=== PATIENT | male | born 1945 | race Caucasian/White ===

== ENCOUNTER → 2016-11-15 | Outpatient (CLI) | payer MEDICARE, BC ==
--- NOTE | 2016-11-15 09:10 | CTL ---
EXAMINATION TYPE: CT chest Low Dose lung cancer screening DATE OF EXAM ORDERED: 11/15/2016 HISTORY: 70 year-old male history of tobacco use. Lung cancer screening, 6 month follow-up. CT DLP: 122.[address] CTDI: 3.50 mGy Automated exposure control for dose reduction was used. SCREENING VISIT: Six-month follow-up (the patient is 5 months late) COMPARISON: 12/19/2015 TECHNIQUE: Low dose computed tomography scan was performed through the chest at 1 mm thick sections a nd reconstructed images in the coronal and sagittal plane at [address] DIAGNOSTIC QUALITY: Satisfactory FINDINGS: The heart size without pericardial effusion. Minimal coronary vessel calcifications are present. Currently, the ascending aorta measures ectatic at 3.9 cm and the upper descending thoracic aorta judy sures mildly aneurysmal at 3.3 cm. Mild atherosclerotic arch calcifications with conventional arch ve ssel branching anatomy. Redemonstrated few scattered nonenlarged mediastinal lymph nodes. Mild biapical pleural-parenchymal scarring. No consolidation or pleural effusion. There is mild emphy sematous change. Mild diffuse bronchial wall thickening suggests chronic bronchitis. - A couple stable 4 mm right midlung pulmonary nodules, axial image 129 and 131. - 5 mm right mid to lower lung pulmonary nodule axial image 148 is stable. -However, an adjacent 4 mm pulmonary nodule axial image 149 is new. - A 3 mm pulmonary nodule left mid lung axial image 133 is new. - In retrospect, a 5 mm subpleural pulmonary nodule posterior left base, axial image 244 is stable. Visualized upper abdomen shows a tiny hiatal hernia. Bones: Mild multilevel degenerative disc disease mid to lower thoracic spine. No osseous destructive process IMPRESSION: 1. Lung-RADS 3 - probably benign; while the previously seen 5 mm and 4 mm right lung pulmonary nodule s are stable, there is a new 4 mm pulmonary nodule on the right which warrants a six-month follow-up. RECOMMENDATION: 1. Six month follow-up low dose CT chest to reassess the new 4 mm right-sided pulmonary nodule. 2. Smoking cessation.
== END | disposition home or self-care (01) ==
LOC: RADCTMAIN 08:25
PROVIDERS: ATTEND Family Medicine
DX: Z12.2 Encounter for screening for malignant neoplasm of respiratory organs (principal); R91.8 Other nonspecific abnormal finding of lung field; Z87.891 Personal history of nicotine dependence

== ENCOUNTER → 2017-05-09 | Outpatient (CLI) | payer MEDICARE, BC ==
--- NOTE | 2017-05-09 14:44 | CT ---
EXAMINATION TYPE: CT brain wo con DATE OF EXAM: 05/09/2017 HISTORY: Syncope x3 days ago. TIA. CT DLP: 1056.4 mGycm. Automated Exposure Control for Dose Reduction was Utilized. TECHNIQUE: CT scan of the head is performed without contrast. COMPARISON: None. FINDINGS: There is no acute intracranial hemorrhage or midline shift identified. There is diffuse v entricular and sulcal prominence consistent with diffuse age-related cerebral atrophy. There is low- attenuation in the periventricular white matter consistent with chronic small vessel ischemic change. The visualized sinuses are clear. There is drusen noted posteriorly in left globe. Left lens is not well seen suggesting possible cataract. Soft tissue density bilateral external auditory canals is fe lt to reflect cerumen. IMPRESSION: No acute intracranial hemorrhage or midline shift. There is mild to moderate diffuse ag e-related cerebral atrophy and chronic small vessel ischemic change noted. Left orbital findings not ed.
--- NOTE | 2017-05-09 14:57 | US ---
EXAMINATION TYPE: US carotid duplex BILAT DATE OF EXAM: 05/09/2017 COMPARISON: NONE CLINICAL HISTORY: R55 syncope. EXAM MEASUREMENTS: RIGHT: Peak Systolic Velocity (PSV) cm/sec ----- Right CCA: 69.0 ----- Right ICA: 56.0 ----- Right ECA: 80.0 ICA/CCA ratio: 0.8 RIGHT: End Diastole cm/sec ----- Right CCA: 15.9 ----- Right ICA: 19.0 ----- Right ECA: 15.0 LEFT: Peak Systolic Velocity (PSV) cm/sec ----- Left CCA: 50.3 ----- Left ICA: 62.1 ----- Left ECA: 91.5 ICA/CCA ratio: 1.2 LEFT: End Diastole cm/sec ----- Left CCA: 15.4 ----- Left ICA: 26.1 ----- Left ECA: 17.1 VERTEBRALS (direction of flow): Right Vertebral: Antegrade Left Vertebral: Antegrade Rhythm: Normal Grayscale images show mild plaque left carotid bulb. Velocity measurements and ratios remain within n ormal limits in visualized portion of both internal carotid arteries. IMPRESSION: No hemodynamically significant stenosis is seen in either internal carotid artery.
--- NOTE | 2017-05-10 09:32 | ECHOF ---
Referral Reason:G45.9 TIA MEASUREMENTS -------- HEIGHT: 177.8 cm WEIGHT: 102.1 kg BP: IVSd: 1.4 cm (0.6 - 1.1) LVIDd: 4.4 cm (3.9 - 5.3) LVPWd: 1.4 cm (0.6 - 1.1) IVSs: 1.7 cm LVIDs: 2.4 cm LVPWs: 1.7 cm LAESV Index (A-L): 11.05 ml/m Ao Diam: 3.6 cm (2.0 - 3.7) AV Cusp: 2.2 cm (1.5 - 2.6) LA Diam: 2.4 cm (2.7 - 3.8) EPSS: 2.5 cm MV E Pardeep: 0.85 m/s MV DecT: 193 ms MV A Pardeep: 1.00 m/s MV E/A Ratio: 0.85 AR PHT: 904 ms RAP: 5.00 mmHg RVSP: 12.45 mmHg MV EF SLOPE: 56.46 mm/s (70 - 150) MV EXCURSION: 1.44 cm (> 18.000) FINDINGS -------- Sinus rhythm. This was a technically adequate study. The left ventricular size is normal. Left ventricular wall thickness is normal. Overall left vent ricular systolic function is normal with, an EF between 55 - 60 %. The right ventricle is normal in size and function. Normal LA size by volume 22+/-6 ml/m2. The right atrium is normal in size. Aortic valve is trileaflet and is mildly thickened. There is mild aortic regurgitation. The aorti c pressure half-time by doppler is 904ms. Mild mitral annular calcification present. Mild mitral regurgitation is present. Mild tricuspid regurgitation present. Right ventricular systolic pressure is normal at < 35 mmHg. There is no evidence of pulmonary hypertension. The pulmonic valve was not well visualized. There is no pulmonic regurgitation present. The aortic root size is normal. Normal inferior vena cava with normal inspiratory collapse consistent with estimated right atrial pre ssure of 5 mmHg. There is no pericardial effusion. CONCLUSIONS -------- 1. Sinus rhythm. 2. This was a technically adequate study. 3. Left ventricular wall thickness is normal. 4. Overall left ventricular systolic function is normal with, an EF between 55 - 60 %. 5. Normal LA size by volume 22+/-6 ml/m2. 6. Aortic valve is trileaflet and is mildly thickened. 7. There is mild aortic regurgitation. 8. The aortic pressure half-time by doppler is 904ms. 9. Mild mitral annular calcification present. 10. Mild mitral regurgitation is present. 11. Mild tricuspid regurgitation present. 12. Right ventricular systolic pressure is normal at < 35 mmHg. 13. The pulmonic valve was not well visualized. 14. There is no pulmonic regurgitation present. 15. The aortic root size is normal. 16. There is no pericardial effusion. PSYCH SPECIALIST: Jamel Díaz RDCS
== END | disposition home or self-care (01) ==
LOC: RADCTMAIN 14:02
PROVIDERS: ATTEND Family Medicine
DX: G31.1 Senile degeneration of brain, not elsewhere classified (principal); I67.82 Cerebral ischemia
CPT/HCPCS: 70450; 93306; 93880

== ENCOUNTER 2017-12-05 06:54 | Day surgery (SDC) | payer MEDICARE, BC ==
[2017-12-02 10:46] VITALS: BMI 31.5
[~2017-12-05 06:54] MED LIST: LACTATED RINGERS 1,000 ML IV SCH; LIDOCAINE 1% 20 ML VIAL (10MG/ML) FOR IV START INTRADERMA PRN; MIDAZOLAM 2 MG/2 ML VIAL IV PRN
[2017-12-05 07:09] VITALS: TEMP 97.6
[2017-12-05] MEDS ORDERED: LACTATED RINGERS 1,000 ML IV ONE ×2 (07:12)
[2017-12-05 07:21] LABS: Glucose,Whole Blood 130 mg/dL (75-99)
[2017-12-05] MEDS ORDERED: GLUCAGON 1 MG/ML VIAL ONE (07:47)
[2017-12-05] MEDS ORDERED: PROPOFOL 10 MG/ML 20 ML VIAL IV ONE (07:47)
[2017-12-05] MEDS ORDERED: LIDOCAINE 1% INJ 10MG/ML (20 ML MDV) ONE (07:47)
--- NOTE | 2017-12-05 08:11 | P.GSHP ---
History of Present Illness H&P Date: 12/05/17 Chief Complaint: GI bleed, diarrhea 's is a 71-year-old male referred from Dr. Alfaro. Patient is today for colonoscopy. He's had issues with diarrhea and rectal bleeding. He's never had a colonoscopy before. Past Medical History Past Medical History: Cancer, Diabetes Mellitus, Hyperlipidemia, Hypertension, Osteoarthritis (OA), Thyroid Disorder Additional Past Medical History / Comment(s): hx. skin cancer, positive cologuard per pt. History of Any Multi-Drug Resistant Organisms: None Reported Additional Past Surgical History / Comment(s): THROAT BIOPSY, skin cancer removed, cataract removed left eye Past Anesthesia/Blood Transfusion Reactions: No Reported Reaction Smoking Status: Current every day smoker - Past Family History Father Family Medical History: No Reported History Medications and Allergies Home Medications Medication Instructions Recorded Confirmed Type Levothyroxine Sodium [Synthroid] 150 mcg PO DAILY 07/31/14 12/02/17 History Metoprolol Tartrate [Lopressor] 25 mg PO BID #10 tablet 07/31/14 12/02/17 Rx Cholecalciferol [Vitamin D3] 2,000 unit PO DAILY 08/04/15 12/02/17 History metFORMIN HCL [Glucophage] 1,000 mg PO BID 12/02/17 12/02/17 History Allergies Allergy/AdvReac Type Severity Reaction Status Date / Time No Known Allergies Allergy Verified 12/02/17 10:43 Surgical - Exam Vital Signs Temp Pulse Resp BP Pulse Ox 97.6 F 72 20 158/81 95 12/05/17 07:07 12/05/17 07:07 12/05/17 07:07 12/05/17 07:07 12/05/17 07:07 - General well developed, no distress - Eyes PERRL - ENT normal pinna - Neck no masses - Respiratory normal expansion - Cardiovascular Rhythm: regular - Abdomen Abdomen: soft, non tender Results - Labs Abnormal Lab Results - Last 24 Hours (Table) 12/05/17 Range/Units 07:12 POC Glucose (mg/dL) 130 H (75-99) mg/dL Assessment and Plan Assessment: GI bleed, diarrhea. We'll perform colonoscopy.
--- NOTE | 2017-12-05 08:28 | P.OP ---
Date of Procedure: 12/05/17 Preoperative Diagnosis: GI bleed, diarrhea Postoperative Diagnosis: Colitis Procedure(s) Performed: Colonoscopy Anesthesia: MAC Surgeon: Noe Jean Baptiste Pathology: other (Rectum) Condition: stable Disposition: PACU Description of Procedure: The patient's placed on the endoscopy table in the lateral position. He received IV sedation. Digital rectal exam was performed which revealed no ebonized. The flexible colonoscope was then placed patient anus passed throughout the entire colon. The ileocecal valve sutures. The cecum, ascending and transverse colon appeared normal. The descending colon was normal. In the sigmoid colon is evidence of colonic inflammation. The inflammation extended to the rectum. A 5 cigarette was performed. The scope was withdrawn from patient.
[2017-12-05 08:37] VITALS: RESP 16
[2017-12-05 08:38] LABS: Glucose,Whole Blood 161 mg/dL (75-99)
[2017-12-05 08:52] VITALS: BP 147/91; PULSE 75
== END 2017-12-05 09:16 | disposition home or self-care (01) ==
LOC: ORWHC2ENDO 06:54
PROVIDERS: ATTEND Surgery
DX: K52.9 Noninfective gastroenteritis and colitis, unspecified (principal); R19.5 Other fecal abnormalities; E11.9 Type 2 diabetes mellitus without complications; E78.5 Hyperlipidemia, unspecified; I10 Essential (primary) hypertension; M19.90 Unspecified osteoarthritis, unspecified site; E07.9 Disorder of thyroid, unspecified; F41.9 Anxiety disorder, unspecified; K21.9 Gastro-esophageal reflux disease without esophagitis; F17.210 Nicotine dependence, cigarettes, uncomplicated; Z79.84 Long term (current) use of oral hypoglycemic drugs; Z79.890 Hormone replacement therapy; Z79.899 Other long term (current) drug therapy; Z85.828 Personal history of other malignant neoplasm of skin
CPT/HCPCS: 88305; 45380; J1610; J2001; J2704

== ENCOUNTER → 2018-01-28 | Outpatient (CLI) | payer MEDICARE, BC ==
--- NOTE | 2018-01-28 13:59 | XR ---
EXAMINATION TYPE: XR thoracic spine complete DATE OF EXAM: 01/28/2018 COMPARISON: None HISTORY: Neck pain fall 3 days prior TECHNIQUE: Three-view thoracic spine FINDINGS: There are 12 thoracic type vertebral bodies. Pedicles are intact. There is a scoliosis cent ered at T6 with a convexity to the left. No suspicious compression deformities are evident. Disc heig hts are preserved. Vertebral body heights are preserved. Alignment is normal in the sagittal plane. IMPRESSION: 1. Scoliosis with the convexity to the left. 2. No acute posttraumatic changes
== END | disposition home or self-care (01) ==
LOC: RADXRMAIN 12:57
PROVIDERS: ATTEND Family Medicine
DX: M41.84 Other forms of scoliosis, thoracic region (principal)
CPT/HCPCS: 72072

== ENCOUNTER → 2018-09-21 | Outpatient (CLI) | payer MEDICARE, BC ==
--- NOTE | 2018-09-21 12:49 | US ---
EXAMINATION TYPE: US duplex aorta DATE OF EXAM: 09/21/2018 COMPARISON: NONE CLINICAL HISTORY: 72-year-old male Z13.6 CARDIOVASCULAR SCREENING. Smoker TECHNIQUE: Multiple sonographic images of the abdominal aorta are obtained. Findings: EXAM MEASUREMENTS: Abdominal Aorta: Proximal: not seen due to bowel gas Mid: 2.2 x 2.1cm Distal: 1.9 x 1.4cm Bifurcation: 1.3cm 1.3cm IMPRESSION: Unable to adequately visualize the proximal abdominal aorta due to bowel gas. The mid and distal abdo genie aorta show no evidence for AAA.
== END | disposition home or self-care (01) ==
LOC: RADUSWWP 09:28
PROVIDERS: ATTEND Family Medicine
DX: Z13.6 Encounter for screening for cardiovascular disorders (principal)
CPT/HCPCS: 93979

== ENCOUNTER → 2019-04-28 | Outpatient (CLI) | payer MEDICARE, BC ==
--- NOTE | 2019-04-28 15:00 | XR ---
EXAMINATION TYPE: XR Hip Complete LT DATE OF EXAM: 04/28/2019 CLINICAL HISTORY: Left hip pain. TECHNIQUE: AP and frogleg views of the left hip are obtained. COMPARISON: None. FINDINGS: There is no acute fracture/dislocation evident in the left hip. Mild to moderate axial darrel nt space loss left hip with mild acetabular spurring. Left pelvic phlebolith noted. IMPRESSION: As above.
== END | disposition home or self-care (01) ==
LOC: RADXRMAIN 14:31
PROVIDERS: ATTEND Family Medicine
DX: M25.852 Other specified joint disorders, left hip (principal); M76.892 Other specified enthesopathies of left lower limb, excluding foot; I87.8 Other specified disorders of veins
CPT/HCPCS: 73502

== ENCOUNTER 2020-07-03 21:09 | Inpatient (IN) | payer MEDICARE, BC ==
[2020-07-03] MEDS ORDERED: SODIUM CHLORIDE 0.9% 500 ML 500 ML IV STA (22:02)
[2020-07-03 22:21] LABS: Basophils # (A) 0.1 k/uL (0-0.2); Basophils % (A) 1 %; Eosinophils # (A) 0.5 k/uL (0-0.7); Eosinophils % (A) 6 %; HCT 45.9 % (39.0-53.0); HGB 15.3 gm/dL (13.0-17.5); Lymphocytes # (A) 2.2 k/uL (1.0-4.8); Lymphocytes % (A) 24 %; MCH 30.8 pg (25.0-35.0); MCHC 33.4 g/dL (31.0-37.0); MCV 92.2 fL (80.0-100.0); Mean Platelet Volume 8.4; Monocytes # (A) 0.5 k/uL (0-1.0); Monocytes % (A) 6 %; Neutrophils # (A) 5.5 k/uL (1.3-7.7); Neutrophils % (A) 62 %; Platelet Count 156 k/uL (150-450); RBC 4.99 m/uL (4.30-5.90)
[2020-07-03 22:32] LABS: ALT 25 U/L (4-49); AST 24 U/L (17-59); African American GFR (CKD) >90 (>60 ml/min/1.73 sqM); Albumin 4.1 g/dL (3.5-5.0); Alkaline Phosphatase 46 U/L (38-126); Anion Gap 13 mmol/L; Blood Urea Nitrogen 13 mg/dL (9-20); Calcium 10.1 mg/dL (8.4-10.2); Carbon Dioxide 22 mmol/L (22-30); Chloride 99 mmol/L (98-107); Glucose 229 mg/dL (74-99); Magnesium 1.5 mg/dL (1.6-2.3); Non-African American GFR(CKD) >90 (>60 ml/min/1.73 sqM); Sodium 134 mmol/L (137-145); Total Bilirubin 0.7 mg/dL (0.2-1.3); Total Protein 7.1 g/dL (6.3-8.2)
--- NOTE | 2020-07-03 22:46 | XR ---
EXAMINATION TYPE: XR chest 1V portable DATE OF EXAM: 07/03/2020 COMPARISON: 07/31/2014 HISTORY: Weakness TECHNIQUE: Single view FINDINGS: There is coarse interstitial type infiltrate in the right mid and lower lung field. There i s similar mild infiltrate at the left lung base. Heart size is normal. There is no heart failure. The re are no hilar masses. There is mild blunting right costophrenic angle. IMPRESSION: There are new bilateral pulmonary infiltrates compared to old exam. This could be acute p neumonia. No obvious heart failure. Small right pleural effusion.
[2020-07-03 22:49] LABS: Potassium 4.7 mmol/L (3.5-5.1)
[2020-07-03 22:57] LABS: Prothrombin Time 10.7 sec (9.0-12.0)
[2020-07-03] MEDS ORDERED: MAGNESIUM SULFATE-D5W PMX 1 GM in DEXTROSE/WATER 1 100ML.BAG IVPB ONE (23:10)
--- NOTE | 2020-07-03 23:14 | CT ---
EXAMINATION TYPE: CT brain wo con DATE OF EXAM: 07/03/2020 COMPARISON: None HISTORY: weakness, dizziness CT DLP: 1098.4 mGycm Automated exposure control for dose reduction was used. Exam performed without contrast. There is cerebral cortical atrophy and enlargement of the sylvian fissures. There is some enlargement of the ventricles. There is no mass effect nor midline shift. There is no sign of intracranial hemor rhage. The calvarium is intact. IMPRESSION: Cerebral atrophy. No acute intracranial abnormality. No significant change compared to old exam.
[2020-07-04] MEDS ORDERED: NALOXONE 0.4 MG/ML 1 ML VIAL IV PRN (00:07)
--- NOTE | 2020-07-04 00:12 | ED ---
General Adult HPI - General Chief complaint: Weakness Stated complaint: Weakness,Syncopy Time Seen by Provider: 07/03/20 21:39 Source: patient, family Mode of arrival: wheelchair Limitations: no limitations - History of Present Illness Initial comments: 74-year-old male patient presents to the emergency department today for evaluation of generalized weakness and not feeling well. Patient was diagnosed with COVID-19 few weeks ago and was discharged home from the hospital. Patient has been unable to get his strength back since being discharge. Patient is unable to care for himself. States he is very weak when attempting to ambulate. They did speak to his primary care physician prior to coming in and they discussed admission for possible placement to an extended care rehab facility. Patient denies any new fever, chills, cough, or congestion. Denies any headache, blurred vision, double vision. He did have a fall with head injury at couple days ago was never evaluated. Denies any extremity injuries. Denies any neck or back pain. Denies use of anticoagulant or antiplatelet medications. Patient denies any recent rash, chest pain, abdominal pain, nausea, vomiting, diarrhea, constipation, hematuria, dysuria, urinary urgency, urinary frequency, or any other complaints. - Related Data Home Medications Medication Instructions Recorded Confirmed Levothyroxine Sodium [Synthroid] 150 mcg PO DAILY 07/31/14 12/02/17 Cholecalciferol [Vitamin D3] 2,000 unit PO DAILY 08/04/15 12/02/17 metFORMIN HCL [Glucophage] 1,000 mg PO BID 12/02/17 12/02/17 Previous Rx's Medication Instructions Recorded Metoprolol Tartrate [Lopressor] 25 mg PO BID #10 tablet 07/31/14 predniSONE 50 mg PO DAILY #30 tablet 12/05/17 Allergies Allergy/AdvReac Type Severity Reaction Status Date / Time No Known Allergies Allergy Verified 07/03/20 21:18 Review of Systems ROS Statement: Those systems with pertinent positive or pertinent negative responses have been documented in the HPI. ROS Other: All systems not noted in ROS Statement are negative. Past Medical History Past Medical History: Cancer, Diabetes Mellitus, Hyperlipidemia, Hypertension, Osteoarthritis (OA), Thyroid Disorder Additional Past Medical History / Comment(s): hx. skin cancer, positive cologuard per pt. History of Any Multi-Drug Resistant Organisms: None Reported Additional Past Surgical History / Comment(s): THROAT BIOPSY, skin cancer removed, cataract removed left eye Past Anesthesia/Blood Transfusion Reactions: No Reported Reaction Past Psychological History: Anxiety Smoking Status: Former smoker Past Alcohol Use History: Rare Past Drug Use History: None Reported - Past Family History Father Family Medical History: No Reported History General Exam Limitations: no limitations General appearance: alert, in no apparent distress, other (This is a well- developed, well-nourished adult male patient in no acute distress. Vital signs upon presentation are temperature 97.9F, pulse 86, respirations 20, blood pressure 136/86, pulse ox 92% on room air.) Head exam: Present: other (Healing abrasion to the posterior scalp) Eye exam: Present: normal appearance, PERRL, EOMI. Absent: scleral icterus, conjunctival injection, periorbital swelling Neck exam: Present: normal inspection, full ROM, other (Nontender, no step-off, no deformity to firm midline palpation of the posterior cervical spine. Full range of motion without pain or limitation.). Absent: tenderness, meningismus, lymphadenopathy Respiratory exam: Present: normal lung sounds bilaterally. Absent: respiratory distress, wheezes, rales, rhonchi, stridor Cardiovascular Exam: Present: regular rate, normal rhythm, normal heart sounds. Absent: systolic murmur, diastolic murmur, rubs, gallop, clicks GI/Abdominal exam: Present: soft, normal bowel sounds. Absent: distended, tenderness, guarding, rebound, rigid Neurological exam: Present: alert, oriented X3, CN II-XII intact Psychiatric exam: Present: normal affect, normal mood Skin exam: Present: warm, dry, intact, normal color. Absent: rash Course Vital Signs 07/03/20 07/03/20 07/03/20 21:12 22:40 23:26 Temperature 97.9 F Pulse Rate 86 60 66 Respiratory 20 18 18 Rate Blood Pressure 136/86 147/78 148/85 O2 Sat by Pulse 92 L 92 L 96 Oximetry EKG Findings - EKG Comments: EKG Findings:: EKG obtained at 2133 shows normal sinus rhythm with a ventricular rate of 74, MD interval 176, QRS duration 74, QT 390, QTC 432. No evidence of ST elevation or depression. Medical Decision Making - Medical Decision Making 74-year-old male patient presented to the emergency department with daughter today for evaluation of increased weakness. Patient had COVID a couple of weeks ago and has not recovered fully. Is unable to ambulate or care for himself at home. Physical examination did reveal healing abrasion to the posterior scalp. To follow a few days ago as we did do a computed tomography scan was negative. Labs are unremarkable other than a low magnesium which were replacing and an elevated blood sugar. Chest x-ray did show bilateral infiltrates this is most likely residual from his Covid infection. Case was discussed with Dr. Alfaro who agrees to admission for placement to extended care rehab facility. Case is also discussed in my attending Dr. Villafana. - Lab Data Result diagrams: 07/03/20 22:17 07/03/20 22:17 Lab Results 07/03/20 07/03/20 07/03/20 Range/Units 22:17 22:17 22:17 WBC 9.0 (3.8-10.6) k/uL RBC 4.99 (4.30-5.90) m/uL Hgb 15.3 (13.0-17.5) gm/dL Hct 45.9 (39.0-53.0) % MCV 92.2 (80.0-100.0) fL MCH 30.8 (25.0-35.0) pg MCHC 33.4 (31.0-37.0) g/dL RDW 13.0 (11.5-15.5) % Plt Count 156 (150-450) k/uL MPV 8.4 Neutrophils % 62 % Lymphocytes % 24 % Monocytes % 6 % Eosinophils % 6 % Basophils % 1 % Neutrophils # 5.5 (1.3-7.7) k/uL Lymphocytes # 2.2 (1.0-4.8) k/uL Monocytes # 0.5 (0-1.0) k/uL Eosinophils # 0.5 (0-0.7) k/uL Basophils # 0.1 (0-0.2) k/uL PT 10.7 (9.0-12.0) sec INR 1.0 (<1.2) APTT 25.0 (22.0-30.0) sec Sodium 134 L (137-145) mmol/L Potassium 4.7 (3.5-5.1) mmol/L Chloride 99 (98-107) mmol/L Carbon Dioxide 22 (22-30) mmol/L Anion Gap 13 mmol/L BUN 13 (9-20) mg/dL Creatinine 0.71 (0.66-1.25) mg/dL Est GFR (CKD-EPI)AfAm >90 (>60 ml/min/1.73 sqM) Est GFR (CKD-EPI)NonAf >90 (>60 ml/min/1.73 sqM) Glucose 229 H (74-99) mg/dL Plasma Lactic Acid Addy (0.7-2.0) mmol/L Calcium 10.1 (8.4-10.2) mg/dL Magnesium 1.5 L (1.6-2.3) mg/dL Total Bilirubin 0.7 (0.2-1.3) mg/dL AST 24 (17-59) U/L ALT 25 (4-49) U/L Alkaline Phosphatase 46 (38-126) U/L Troponin I (0.000-0.034) ng/mL Total Protein 7.1 (6.3-8.2) g/dL Albumin 4.1 (3.5-5.0) g/dL Coronavirus (PCR) (Not Detectd) 07/03/20 07/03/20 07/03/20 Range/Units 22:17 22:45 23:14 WBC (3.8-10.6) k/uL RBC (4.30-5.90) m/uL Hgb (13.0-17.5) gm/dL Hct (39.0-53.0) % MCV (80.0-100.0) fL MCH (25.0-35.0) pg MCHC (31.0-37.0) g/dL RDW (11.5-15.5) % Plt Count (150-450) k/uL MPV Neutrophils % % Lymphocytes % % Monocytes % % Eosinophils % % Basophils % % Neutrophils # (1.3-7.7) k/uL Lymphocytes # (1.0-4.8) k/uL Monocytes # (0-1.0) k/uL Eosinophils # (0-0.7) k/uL Basophils # (0-0.2) k/uL PT (9.0-12.0) sec INR (<1.2) APTT (22.0-30.0) sec Sodium (137-145) mmol/L Potassium (3.5-5.1) mmol/L Chloride (98-107) mmol/L Carbon Dioxide (22-30) mmol/L Anion Gap mmol/L BUN (9-20) mg/dL Creatinine (0.66-1.25) mg/dL Est GFR (CKD-EPI)AfAm (>60 ml/min/1.73 sqM) Est GFR (CKD-EPI)NonAf (>60 ml/min/1.73 sqM) Glucose (74-99) mg/dL Plasma Lactic Acid Addy 1.9 (0.7-2.0) mmol/L Calcium (8.4-10.2) mg/dL Magnesium (1.6-2.3) mg/dL Total Bilirubin (0.2-1.3) mg/dL AST (17-59) U/L ALT (4-49) U/L Alkaline Phosphatase (38-126) U/L Troponin I <0.012 (0.000-0.034) ng/mL Total Protein (6.3-8.2) g/dL Albumin (3.5-5.0) g/dL Coronavirus (PCR) Not Detected (Not Detectd) - Radiology Data Radiology results: report reviewed, image reviewed CT brain without contrast was obtained. Report is reviewed in its entirety. Impression by Dr. More shows cerebral atrophy. No acute intracranial abnormality. No significant change compared to old exam One view x-ray of the chest is obtained. Report is reviewed in its entirety. Impression by Dr. More shows new bilateral pulmonary infiltrates compared to old exam which was 07/31/2014, this could be acute pneumonia. No obvious heart failure. Small right pleural effusion. Disposition Clinical Impression: Weakness Disposition: ADMITTED IP TO THIS HOSP Condition: Serious Time of Disposition: 00:14
[2020-07-04 00:59] LABS: Appearance,Urine Clear (Clear); Bilirubin,Urine Negative (Negative); Blood,Urine Negative (Negative); Color,Urine Light Yellow; Glucose,Urine (UA) Negative (Negative); Ketones,Urine Negative (Negative); Leukocyte Esterase,Urine Negative (Negative); Nitrite,Urine Negative (Negative); PH, Urine 6.5 (5.0-8.0); Protein,Urine Negative (Negative); Specific Gravity,Urine 1.007 (1.001-1.035); Urobilinogen,Urine <2.0 mg/dL (<2.0)
[2020-07-04 02:14] LABS: Glucose,Whole Blood 183 mg/dL (75-99)
[2020-07-04] MEDS ORDERED: ALBUTEROL HFA INHALER INHALATION PRN (07:56)
[2020-07-04] MEDS ORDERED: ALBUTEROL NEBULIZED 2.5 MG/3 ML INHALATION PRN (07:56)
[2020-07-04 11:52] LABS: Glucose,Whole Blood 229 mg/dL (75-99)
[2020-07-04] MEDS: METOPROLOL TARTRATE 25 MG TAB PO SCH ×2 (13:36→21:48)
[2020-07-04] MEDS: metFORMIN 500 MG TAB PO SCH ×2 (13:36→21:48)
[2020-07-04] MEDS: ASCORBIC ACID 500 MG TAB PO SCH (13:36)
[2020-07-04] MEDS: CHOLECALCIFEROL 25 MCG (1000 IU) TABLET PO SCH (13:36)
[2020-07-04] MEDS: INSULIN ASPART (NovoLOG) 100 UNIT/ML VIAL SQ SCH ×4 (13:38→21:48)
[2020-07-04] MEDS: PIOGLITAZONE 30 MG TAB PO SCH (13:39)
[2020-07-04] MEDS: FORMOTEROL FUMARATE 20 MCG/2 ML NEBU INHALATION SCH ×2 (15:11→19:37)
[2020-07-04] MEDS: IPRATROPIUM 0.5 MG/2.5 ML NEBU INHALATION SCH ×3 (15:11→19:38)
[2020-07-04 16:35] LABS: Glucose,Whole Blood 204 mg/dL (75-99)
[2020-07-04] MEDS: LEVOTHYROXINE 75 MCG TAB PO SCH (16:37)
[2020-07-04] MEDS: NICOTINE 21MG/24HR PATCH TRANSDERM SCH (16:37)
[2020-07-04 20:12] LABS: Glucose,Whole Blood 168 mg/dL (75-99)
[2020-07-04] MEDS: MONTELUKAST 10 MG TAB PO SCH (21:48)
[2020-07-05] MEDS: LEVOTHYROXINE 75 MCG TAB PO SCH (05:55)
[2020-07-05 06:55] LABS: Glucose,Whole Blood 169 mg/dL (75-99)
[2020-07-05] MEDS: IPRATROPIUM 0.5 MG/2.5 ML NEBU INHALATION SCH ×4 (07:10→21:33)
[2020-07-05] MEDS: FORMOTEROL FUMARATE 20 MCG/2 ML NEBU INHALATION SCH ×2 (07:10→21:33)
--- NOTE | 2020-07-05 08:14 | P.PN ---
Subjective Principal diagnosis: Debility The patient is essentially admitted for general debility and weakness. The patient has an underlying history of diabetes which is been uncontrolled. After discussing with the family, they wished to place ECF and rehab. Objective - Vital Signs Vital signs: Vital Signs Temp 98.4 F 07/05/20 02:00 Pulse 67 07/05/20 02:00 Resp 18 07/05/20 02:00 BP 122/73 07/05/20 02:00 Pulse Ox 93 L 07/05/20 02:00 Intake & Output 07/04/20 07/05/20 07/05/20 18:59 06:59 18:59 Intake Total 1250 Balance 1250 Weight 106.594 kg Intake: Oral 1250 Other: Voiding Method Toilet # Voids 4 3 - Constitutional General appearance: Present: no acute distress, obese. Absent: severe distress - Neck Neck: Absent: lymphadenopathy - Respiratory Respiratory: bilateral: CTA - Cardiovascular Rhythm: regular Heart sounds: normal: S1, S2 Abnormal Heart Sounds: Absent: S3 Gallop - Gastrointestinal General gastrointestinal: Present: soft. Absent: tenderness - Neurologic Neurologic: Present: CNII-XII intact - Labs CBC & Chem 7: 07/03/20 22:17 07/03/20 22:17 Labs: Abnormal Lab Results - Last 24 Hours (Table) 07/04/20 07/04/20 07/04/20 Range/Units 11:51 16:33 20:10 POC Glucose (mg/dL) 229 H 204 H 168 H (75-99) mg/dL 07/05/20 Range/Units 06:53 POC Glucose (mg/dL) 169 H (75-99) mg/dL Assessment and Plan (1) Uncontrolled diabetes mellitus Current Visit: Yes Status: Acute Code(s): E11.65 - TYPE 2 DIABETES MELLITUS WITH HYPERGLYCEMIA SNOMED Code(s): 08465600 (2) Weakness Current Visit: Yes Status: Acute Code(s): R53.1 - WEAKNESS SNOMED Code(s): 08005602 (3) Accelerated essential hypertension Current Visit: Yes Status: Acute Code(s): I10 - ESSENTIAL (PRIMARY) HYPERTENSION SNOMED Code(s): 80174657 Plan: Refer to discharge plan for probable ECF near [place]. PT/OT consultation. Prognosis is guarded. network services project manager consult
[2020-07-05] MEDS: metFORMIN 500 MG TAB PO SCH ×2 (08:18→19:58)
[2020-07-05] MEDS: ASCORBIC ACID 500 MG TAB PO SCH (08:19)
[2020-07-05] MEDS: CHOLECALCIFEROL 25 MCG (1000 IU) TABLET PO SCH (08:19)
[2020-07-05] MEDS: METOPROLOL TARTRATE 25 MG TAB PO SCH ×2 (08:19→19:58)
[2020-07-05] MEDS: PIOGLITAZONE 30 MG TAB PO SCH (08:19)
[2020-07-05] MEDS: INSULIN ASPART (NovoLOG) 100 UNIT/ML VIAL SQ SCH ×4 (08:19→20:06)
[2020-07-05] MEDS: NICOTINE 21MG/24HR PATCH TRANSDERM SCH (08:19)
[2020-07-05 09:13] LABS: HCT 44.4 % (39.6-50.0); HGB 14.2 g/dL (13.0-17.0); MCH 30.6 pg (27.0-32.0); MCV 95.7 fL (80.0-97.0); Mean Platelet Volume 11.6 fL (9.5-12.2); Platelet Count 164 X 10*3/uL (140-440); RBC 4.64 X 10*6/uL (4.40-5.60); RDW 13.2 % (11.5-14.5); WBC 7.72 X 10*3/uL (4.50-10.00)
[2020-07-05 09:39] LABS: African American GFR (CKD) 69.1 (60.0-200.0); Albumin/Globulin Ratio 2.11 (1.60-3.17); Anion Gap 10.6 mmol/L (4.00-12.00); Calcium 9.3 mg/dL (8.7-10.3); Carbon Dioxide 26.4 mmol/L (21.6-31.8); Globulin 1.9 g/dL (1.6-3.3); Non-African American GFR(CKD) 59.6 (60.0-200.0); Total Bilirubin 0.3 mg/dL (0.2-1.2); Total Protein 5.9 g/dL (6.2-8.2)
[2020-07-05 11:51] LABS: Glucose,Whole Blood 230 mg/dL (75-99)
[2020-07-05 17:14] LABS: Glucose,Whole Blood 132 mg/dL (75-99)
[2020-07-05] MEDS: MONTELUKAST 10 MG TAB PO SCH (19:58)
[2020-07-05 20:05] LABS: Glucose,Whole Blood 220 mg/dL (75-99)
[2020-07-06] MEDS: LEVOTHYROXINE 75 MCG TAB PO SCH (05:59)
[2020-07-06 06:56] LABS: Glucose,Whole Blood 193 mg/dL (75-99)
--- NOTE | 2020-07-06 08:09 | P.PN ---
Subjective Principal diagnosis: Debility The patient is essentially admitted for general debility and weakness. The patient has an underlying history of diabetes which is been uncontrolled. After discussing with the family, they wished to place ECF and rehab. We will increase rehab today. Objective - Vital Signs Vital signs: Vital Signs Temp 97.9 F 07/06/20 07:53 Pulse 67 07/06/20 07:53 Resp 14 07/06/20 07:53 BP 109/79 07/06/20 07:53 Pulse Ox 94 L 07/06/20 07:53 Intake & Output 07/05/20 07/06/20 07/06/20 18:59 06:59 18:59 Intake Total 590 Balance 590 Intake: Oral 590 Other: Voiding Method Toilet Toilet # Voids 1 # Bowel Movements 1 0 - Constitutional General appearance: Present: obese - EENT Eyes: Absent: abnormal pupil - Neck Neck: Absent: lymphadenopathy - Respiratory Respiratory: bilateral: CTA - Cardiovascular Rhythm: regular Heart sounds: normal: S1, S2 Abnormal Heart Sounds: Absent: S3 Gallop - Gastrointestinal General gastrointestinal: Present: soft. Absent: tenderness - Labs CBC & Chem 7: 07/05/20 04:20 07/05/20 04:20 Labs: Abnormal Lab Results - Last 24 Hours (Table) 07/05/20 07/05/20 07/05/20 Range/Units 04:20 11:44 17:11 Est GFR (CKD-EPI)NonAf 59.6 L (60.0-200.0) Glucose 172 H (70-110) mg/dL POC Glucose (mg/dL) 230 H 132 H (75-99) mg/dL Total Protein 5.9 L (6.2-8.2) g/dL 07/05/20 07/06/20 Range/Units 20:03 06:54 Est GFR (CKD-EPI)NonAf (60.0-200.0) Glucose (70-110) mg/dL POC Glucose (mg/dL) 220 H 193 H (75-99) mg/dL Total Protein (6.2-8.2) g/dL Assessment and Plan (1) Uncontrolled diabetes mellitus Current Visit: Yes Status: Acute Code(s): E11.65 - TYPE 2 DIABETES MELLITUS WITH HYPERGLYCEMIA SNOMED Code(s): 72534251 (2) Weakness Current Visit: Yes Status: Acute Code(s): R53.1 - WEAKNESS SNOMED Code(s): 17081264 (3) Accelerated essential hypertension Current Visit: Yes Status: Acute Code(s): I10 - ESSENTIAL (PRIMARY) HYPERTENSION SNOMED Code(s): 02403499 Plan: Refer to discharge plan for probable ECF n the aM PT/OT consultation. t continue sliding scale. Low-dose Levemir will be started today as well.
[2020-07-06] MEDS: INSULIN ASPART (NovoLOG) 100 UNIT/ML VIAL SQ SCH ×4 (08:19→21:05)
[2020-07-06] MEDS: PIOGLITAZONE 30 MG TAB PO SCH (08:19)
[2020-07-06] MEDS: NICOTINE 21MG/24HR PATCH TRANSDERM SCH (08:19)
[2020-07-06] MEDS: metFORMIN 500 MG TAB PO SCH ×2 (08:19→21:06)
[2020-07-06] MEDS: METOPROLOL TARTRATE 25 MG TAB PO SCH ×2 (08:20→21:06)
[2020-07-06] MEDS: CHOLECALCIFEROL 25 MCG (1000 IU) TABLET PO SCH (08:20)
[2020-07-06] MEDS: ASCORBIC ACID 500 MG TAB PO SCH (08:21)
[2020-07-06] MEDS: IPRATROPIUM 0.5 MG/2.5 ML NEBU INHALATION SCH ×4 (08:42→19:05)
[2020-07-06] MEDS: FORMOTEROL FUMARATE 20 MCG/2 ML NEBU INHALATION SCH ×2 (08:42→19:05)
[2020-07-06] MEDS: INSULIN DETEMIR (LEVEMIR) 100 UNIT/ML SYR SQ SCH (09:36)
[2020-07-06 09:57] LABS: HCT 42.9 % (39.6-50.0); HGB 14.2 g/dL (13.0-17.0); MCHC 33.1 g/dL (32.0-37.0); MCV 93.7 fL (80.0-97.0); Mean Platelet Volume 11.7 fL (9.5-12.2); Platelet Count 170 X 10*3/uL (140-440); RBC 4.58 X 10*6/uL (4.40-5.60); RDW 13.2 % (11.5-14.5); WBC 7.53 X 10*3/uL (4.50-10.00)
[2020-07-06 10:40] LABS: African American GFR (CKD) 86.2 (60.0-200.0); Albumin 3.6 g/dL (3.80-4.90); Albumin/Globulin Ratio 1.57 (1.60-3.17); Anion Gap 9.8 mmol/L (4.00-12.00); Calcium 9.8 mg/dL (8.7-10.3); Carbon Dioxide 23.2 mmol/L (21.6-31.8); Globulin 2.3 g/dL (1.6-3.3); Non-African American GFR(CKD) 74.3 (60.0-200.0); Potassium 3.8 mmol/L (3.5-5.5); Total Bilirubin 0.4 mg/dL (0.3-1.2); Total Protein 5.9 g/dL (6.2-8.2)
[2020-07-06 11:42] LABS: Glucose,Whole Blood 171 mg/dL (75-99)
[2020-07-06 16:38] LABS: Glucose,Whole Blood 128 mg/dL (75-99)
[2020-07-06 20:24] LABS: Glucose,Whole Blood 163 mg/dL (75-99)
[2020-07-06] MEDS: MONTELUKAST 10 MG TAB PO SCH (21:06)
[2020-07-06] MEDS ORDERED: ALPRAZolam 0.5 MG TAB PO PRN (22:30)
[2020-07-07 04:28] VITALS: RESP 16
[2020-07-07] MEDS: LEVOTHYROXINE 75 MCG TAB PO SCH (05:35)
[2020-07-07] MEDS ORDERED: INSULIN DETEMIR (LEVEMIR) 100 UNIT/ML SYR SQ SCH (07:00)
[2020-07-07 07:18] VITALS: BP 112/69; TEMP 97.8
[2020-07-07 07:24] LABS: Glucose,Whole Blood 146 mg/dL (75-99)
[2020-07-07] MEDS: CHOLECALCIFEROL 25 MCG (1000 IU) TABLET PO SCH (07:37)
[2020-07-07] MEDS: METOPROLOL TARTRATE 25 MG TAB PO SCH (07:37)
[2020-07-07] MEDS: metFORMIN 500 MG TAB PO SCH (07:37)
[2020-07-07] MEDS: PIOGLITAZONE 30 MG TAB PO SCH (07:37)
[2020-07-07] MEDS: ASCORBIC ACID 500 MG TAB PO SCH (07:39)
[2020-07-07] MEDS: INSULIN DETEMIR (LEVEMIR) 100 UNIT/ML SYR SQ SCH (07:39)
[2020-07-07] MEDS: INSULIN ASPART (NovoLOG) 100 UNIT/ML VIAL SQ SCH (07:40)
[2020-07-07] MEDS: NICOTINE 21MG/24HR PATCH TRANSDERM SCH (07:40)
--- NOTE | 2020-07-07 08:08 | P.DS ---
Providers Date of admission: 07/04/20 10:53 Attending physician: Marcos Alfaro Primary care physician: Marcos Alfaro - Discharge Diagnosis(es) (1) Uncontrolled diabetes mellitus Current Visit: Yes Status: Acute (2) Weakness Current Visit: Yes Status: Acute (3) Accelerated essential hypertension Current Visit: Yes Status: Acute Hospital Course: This is a discharge summary 74-year-old white male essentially admitted for generalized debility. He is lives alone and has had difficulty with ADLs and activity to keep his house. The patient was admitted for generalized weakness and uncontrolled diabetes. The patient was stabilized and will be transferred to rehab for appropriate ECF for the next 2-3 weeks. The patient is agreeable and will follow-up with me after discharge. Patient Condition at Discharge: Stable Plan - Discharge Summary New Discharge Prescriptions: New Ipratropium Nebulized [Atrovent Nebulized 0.2 MG/ML] 0.5 mg INHALATION RT-QID ml Nicotine 21Mg/24Hr Patch [Habitrol] 1 patch TRANSDERM DAILY patch Insulin Detemir (Levemir) [Levemir] 8 unit SQ DAILY@0700 syr INSULIN ASPART (NovoLOG) [NovoLOG (formulary)] 0 unit SQ ACHS vial Continue Metoprolol Tartrate [Lopressor] 25 mg PO BID #10 tablet Cholecalciferol [Vitamin D3 (25 Mcg = 1000 Iu)] 2,000 unit PO DAILY metFORMIN HCL [Glucophage] 500 mg PO BID Ascorbic Acid [Vitamin C] 500 mg PO DAILY Pioglitazone [Actos] 30 mg PO DAILY Montelukast [Singulair] 10 mg PO HS Levothyroxine Sodium [Synthroid] 150 mcg PO DAILY Albuterol Nebulized [Ventolin Nebulized] 2.5 mg INHALATION RT-QID PRN PRN Reason: Shortness Of Breath Albuterol Inhaler [Ventolin Hfa Inhaler] 2 puff INHALATION RT-Q4H PRN PRN Reason: Shortness Of Breath Tiotropium Br/Olodaterol HCl [Stiolto Respimat Inhal [place]] 1 spray INHALATION RT-DAILY Discharge Medication List Metoprolol Tartrate [Lopressor] 25 mg PO BID #10 tablet 07/31/14 [Rx] Cholecalciferol [Vitamin D3 (25 Mcg = 1000 Iu)] 2,000 unit PO DAILY 08/04/15 [History] metFORMIN HCL [Glucophage] 500 mg PO BID 12/02/17 [History] Albuterol Inhaler [Ventolin Hfa Inhaler] 2 puff INHALATION RT-Q4H PRN 07/04/20 [History] Albuterol Nebulized [Ventolin Nebulized] 2.5 mg INHALATION RT-QID PRN 07/04/20 [History] Ascorbic Acid [Vitamin C] 500 mg PO DAILY 07/04/20 [History] Levothyroxine Sodium [Synthroid] 150 mcg PO DAILY 07/04/20 [History] Montelukast [Singulair] 10 mg PO HS 07/04/20 [History] Pioglitazone [Actos] 30 mg PO DAILY 07/04/20 [History] Tiotropium Br/Olodaterol HCl [Stiolto Respimat Inhal [place]] 1 spray INHALATION RT-DAILY 07/04/20 [History] INSULIN ASPART (NovoLOG) [NovoLOG (formulary)] 0 unit SQ ACHS vial 07/07/20 [Rx] Insulin Detemir (Levemir) [Levemir] 8 unit SQ DAILY@0700 syr 07/07/20 [Rx] Ipratropium Nebulized [Atrovent Nebulized 0.2 MG/ML] 0.5 mg INHALATION RT-QID ml 07/07/20 [Rx] Nicotine 21Mg/24Hr Patch [Habitrol] 1 patch TRANSDERM DAILY patch 07/07/20 [Rx] Follow up Appointment(s)/Referral(s): Marcos Alfaro MD [Primary Care Provider] - 1-2 days Discharge Disposition: TRANSFER TO SNF/F
[2020-07-07] MEDS: FORMOTEROL FUMARATE 20 MCG/2 ML NEBU INHALATION SCH (08:42)
[2020-07-07] MEDS: IPRATROPIUM 0.5 MG/2.5 ML NEBU INHALATION SCH (08:42)
[2020-07-07 10:43] VITALS: PULSE 62
== END 2020-07-07 11:35 | DRG 639 ==
LOC: EC 21:09 → 4SSUR 23:42 → 1SOBS 07-04 08:30 → OBSVTOIN 07-04 10:53 → 5NMEDONC 07-04 17:18
PROVIDERS: ADMIT Family Medicine; ATTEND Family Medicine
DX: E11.65 Type 2 diabetes mellitus with hyperglycemia (principal); E78.5 Hyperlipidemia, unspecified; I10 Essential (primary) hypertension; S00.01XA Abrasion of scalp, initial encounter; E07.9 Disorder of thyroid, unspecified; Z79.890 Hormone replacement therapy; Z85.828 Personal history of other malignant neoplasm of skin; Z87.891 Personal history of nicotine dependence; Z98.42 Cataract extraction status, left eye; Z20.822 Contact with and (suspected) exposure to COVID-19; Z86.16 Personal history of COVID-19; F41.9 Anxiety disorder, unspecified; Z79.84 Long term (current) use of oral hypoglycemic drugs; Z79.899 Other long term (current) drug therapy; M19.90 Unspecified osteoarthritis, unspecified site
CPT/HCPCS: 36415; 70450; 71045; 80053; 81003; 83605; 83735; 84484; 85025; 85027; 85610; 85730; 87635; 93005; 94640; 94760; 96361; 96365; 99285

== ENCOUNTER 2021-02-03 20:14 | Emergency (ER) | payer MEDICARE, BC ==
[2021-02-03 20:19] VITALS: RESP 18
[2021-02-03] MEDS ORDERED: SODIUM CHLORIDE 0.9% 500 ML 500 ML IV STA (20:41)
--- NOTE | 2021-02-03 20:47 | ED ---
General Adult HPI - General Chief complaint: Weakness Stated complaint: Weakness Time Seen by Provider: 02/03/21 20:25 Source: patient, family, EMS, RN notes reviewed, old records reviewed Mode of arrival: EMS Limitations: no limitations - History of Present Illness Initial comments: 75-year-old male, alert and oriented 4, presents to the emergency room with his daughter complaining of weakness and low temperature. Patient was just discharged from [facility] after receiving chemo and radiation for throat cancer. He does have a PEG tube. He has been feeling increasingly weak throughout the week has had persistent cough. He states that the mucus is related to the chemotherapy medications. He denies any pain or shortness of breath. He also denies any fevers. The daughter states that she is concerned for sepsis in this temperature has been low in he's been feeling weak. His white count was only one at discharge on Friday. Patient has a feeding tube and takes nothing by mouth. Patient also has a Mediport. Severity scale (1-10): 0 Associated Symptoms: cough, weakness - Related Data Home Medications Medication Instructions Recorded Confirmed Albuterol Inhaler [Ventolin Hfa 2 puff INHALATION RT-Q4H PRN 07/04/20 02/03/21 Inhaler] Levothyroxine Sodium [Synthroid] 150 mcg PO DAILY 07/04/20 02/03/21 HYDROcodone/APAP 5-325MG [[place] 1 tab PO Q4HR PRN 02/03/21 02/03/21 5-325] Insulin Glargine,Hum.rec.anlog 2 - 4 unit SQ DAILY PRN MDD OVER 02/03/21 02/03/21 [Lantus Solostar Pen] 200 Insulin Lispro [humaLOG Kwikpen] See Protocol SQ AC-TID PRN MDD 02/03/21 02/03/21 OVER 200 Magnesium Oxide [Mag-Ox] 400 mg PO DAILY 02/03/21 02/03/21 Pantoprazole [Protonix] 40 mg PO DAILY 02/03/21 02/03/21 Pravastatin Sodium [Pravachol] 40 mg PO DAILY 02/03/21 02/03/21 Prochlorperazine [Compazine] 10 mg PO DAILY PRN 02/03/21 02/03/21 Sertraline [Zoloft] 50 mg PO DAILY 02/03/21 02/03/21 amLODIPine [Norvasc] 5 mg PO DAILY 02/03/21 02/03/21 Allergies Allergy/AdvReac Type Severity Reaction Status Date / Time No Known Allergies Allergy Verified 02/03/21 22:28 Review of Systems ROS Statement: Those systems with pertinent positive or pertinent negative responses have been documented in the HPI. ROS Other: All systems not noted in ROS Statement are negative. Past Medical History Past Medical History: Cancer, COPD, Diabetes Mellitus, Eye Disorder, GERD/Reflux, Hypertension, Osteoarthritis (OA), Pneumonia, Thyroid Disorder Additional Past Medical History / Comment(s): Pt states he tested + for covid on 05/31/20 at [facility] and was hospitalized at [facility] same day. 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 Past Anesthesia/Blood Transfusion Reactions: No Reported Reaction Past Psychological History: Anxiety Smoking Status: Former smoker - Past Family History Father Family Medical History: Cancer Additional Family Medical History / Comment(s): Father of throat cancer. Mother Family Medical History: Cancer, Dementia, Thyroid Disorder Additional Family Medical History / Comment(s): Mother had breast cancer. General Exam Limitations: no limitations General appearance: alert, in no apparent distress Head exam: Present: atraumatic, normocephalic, normal inspection Eye exam: Present: normal appearance, PERRL, EOMI. Absent: scleral icterus, conjunctival injection, periorbital swelling ENT exam: Present: normal exam, mucous membranes dry, normal external ear exam (Dry flaky skin to the ears) Neck exam: Present: normal inspection, full ROM. Absent: tenderness, meningismus, lymphadenopathy Respiratory exam: Present: normal lung sounds bilaterally (Diminished throughout). Absent: chest wall tenderness, accessory muscle use Cardiovascular Exam: Present: regular rate, normal rhythm, normal heart sounds. Absent: systolic murmur, diastolic murmur, rubs, gallop, clicks GI/Abdominal exam: Present: soft, normal bowel sounds, other (Feeding tube intact). Absent: distended, tenderness, guarding, rebound, rigid Extremities exam: Present: normal inspection, full ROM, normal capillary refill. Absent: tenderness, pedal edema, joint swelling, calf tenderness Back exam: Absent: tenderness, CVA tenderness (R), CVA tenderness (L) Neurological exam: Present: alert, oriented X3 Psychiatric exam: Present: normal affect, normal mood Skin exam: Present: warm, dry, intact, normal color. Absent: rash, cyanosis, diaphoretic Course Vital Signs 02/03/21 02/03/21 02/04/21 20:15 21:47 00:08 Temperature 98 F Pulse Rate 74 78 82 Respiratory 18 18 18 Rate Blood Pressure 133/68 143/84 131/100 O2 Sat by Pulse 96 96 96 Oximetry Medical Decision Making - Medical Decision Making Chest x-ray shows no active cardiopulmonary disease. The right central venous catheter tip is within the superior vena cava. His WBC count is 5.0, daughter states that it was 1 at discharge from [place] after his chemo and radiation therapy. Hemoglobin and hematocrit stable. EKG shows normal sinus rhythm and his troponin is negative at 0.012. His UA is within normal limits no evidence of infection. He is afebrile in the emergency room. Patient and daughter were advised of the results when they're agreeable to being discharged home. Case discussed with Dr. Villafana. - Lab Data Result diagrams: 02/03/21 20:54 02/03/21 20:54 Lab Results 02/03/21 02/03/21 02/03/21 Range/Units 20:54 20:54 20:54 WBC 5.0 (3.8-10.6) k/uL RBC 3.41 L (4.30-5.90) m/uL Hgb 11.3 L (13.0-17.5) gm/dL Hct 32.5 L (39.0-53.0) % MCV 95.5 (80.0-100.0) fL MCH 33.1 (25.0-35.0) pg MCHC 34.6 (31.0-37.0) g/dL RDW 20.5 H (11.5-15.5) % Plt Count 499 H (150-450) k/uL MPV 7.7 Neutrophils % (Manual) 57 % Band Neuts % (Manual) 9 % Lymphocytes % (Manual) 17 % Monocytes % (Manual) 16 % Eosinophils % (Manual) 1 % Neutrophils # (Manual) 3.30 (1.3-7.7) k/uL Lymphocytes # (Manual) 0.85 L (1.0-4.8) k/uL Monocytes # (Manual) 0.80 (0-1.0) k/uL Eosinophils # (Manual) 0.05 (0-0.7) k/uL Nucleated RBCs 0 (0-0) /100 WBC Manual Slide Review Performed Polychromasia Present Anisocytosis Moderate Anisocytosis (manual) Present Macrocytosis Slight PT 9.9 (9.0-12.0) sec INR 0.9 (<1.2) APTT 22.7 (22.0-30.0) sec Sodium 132 L (137-145) mmol/L Potassium 4.1 (3.5-5.1) mmol/L Chloride 99 (98-107) mmol/L Carbon Dioxide 23 (22-30) mmol/L Anion Gap 10 mmol/L BUN 11 (9-20) mg/dL Creatinine 0.61 L (0.66-1.25) mg/dL Est GFR (CKD-EPI)AfAm >90 (>60 ml/min/1.73 sqM) Est GFR (CKD-EPI)NonAf >90 (>60 ml/min/1.73 sqM) Glucose 165 H (74-99) mg/dL Plasma Lactic Acid Addy (0.7-2.0) mmol/L Calcium 9.7 (8.4-10.2) mg/dL Magnesium 1.6 (1.6-2.3) mg/dL Total Bilirubin 0.3 (0.2-1.3) mg/dL AST 23 (17-59) U/L ALT 17 (4-49) U/L Alkaline Phosphatase 80 (38-126) U/L Troponin I (0.000-0.034) ng/mL Total Protein 6.2 L (6.3-8.2) g/dL Albumin 3.3 L (3.5-5.0) g/dL Urine Color Urine Appearance (Clear) Urine pH (5.0-8.0) Ur Specific [place] (1.001-1.035) Urine Protein (Negative) Urine Glucose (UA) (Negative) Urine Ketones (Negative) Urine Blood (Negative) Urine Nitrite (Negative) Urine Bilirubin (Negative) Urine Urobilinogen (<2.0) mg/dL Ur Leukocyte Esterase (Negative) 02/03/21 02/03/21 02/04/21 Range/Units 20:54 20:54 00:09 WBC (3.8-10.6) k/uL RBC (4.30-5.90) m/uL Hgb (13.0-17.5) gm/dL Hct (39.0-53.0) % MCV (80.0-100.0) fL MCH (25.0-35.0) pg MCHC (31.0-37.0) g/dL RDW (11.5-15.5) % Plt Count (150-450) k/uL MPV Neutrophils % (Manual) % Band Neuts % (Manual) % Lymphocytes % (Manual) % Monocytes % (Manual) % Eosinophils % (Manual) % Neutrophils # (Manual) (1.3-7.7) k/uL Lymphocytes # (Manual) (1.0-4.8) k/uL Monocytes # (Manual) (0-1.0) k/uL Eosinophils # (Manual) (0-0.7) k/uL Nucleated RBCs (0-0) /100 WBC Manual Slide Review Polychromasia Anisocytosis Anisocytosis (manual) Macrocytosis PT (9.0-12.0) sec INR (<1.2) APTT (22.0-30.0) sec Sodium (137-145) mmol/L Potassium (3.5-5.1) mmol/L Chloride (98-107) mmol/L Carbon Dioxide (22-30) mmol/L Anion Gap mmol/L BUN (9-20) mg/dL Creatinine (0.66-1.25) mg/dL Est GFR (CKD-EPI)AfAm (>60 ml/min/1.73 sqM) Est GFR (CKD-EPI)NonAf (>60 ml/min/1.73 sqM) Glucose (74-99) mg/dL Plasma Lactic Acid Addy 1.5 (0.7-2.0) mmol/L Calcium (8.4-10.2) mg/dL Magnesium (1.6-2.3) mg/dL Total Bilirubin (0.2-1.3) mg/dL AST (17-59) U/L ALT (4-49) U/L Alkaline Phosphatase (38-126) U/L Troponin I <0.012 (0.000-0.034) ng/mL Total Protein (6.3-8.2) g/dL Albumin (3.5-5.0) g/dL Urine Color Yellow Urine Appearance Clear (Clear) Urine pH 5.5 (5.0-8.0) Ur Specific [place] 1.016 (1.001-1.035) Urine Protein Trace H (Negative) Urine Glucose (UA) Negative (Negative) Urine Ketones Negative (Negative) Urine Blood Negative (Negative) Urine Nitrite Negative (Negative) Urine Bilirubin Negative (Negative) Urine Urobilinogen <2.0 (<2.0) mg/dL Ur Leukocyte Esterase Negative (Negative) Disposition Clinical Impression: Weakness Disposition: HOME SELF-CARE Condition: Good Additional Instructions: Follow-up with your primary care doctor next week and your oncologist. Return to the emergency room with any new or worsening symptoms including increased fever or pain. Is patient prescribed a controlled substance at d/c from ED?: No Referrals: Marcos Alfaro MD [STAFF PHYSICIAN] - 1-2 days Time of Disposition: 00:41
[2021-02-03 21:28] LABS: ALT 17 U/L (4-49); AST 23 U/L (17-59); African American GFR (CKD) >90 (>60 ml/min/1.73 sqM); Albumin 3.3 g/dL (3.5-5.0); Alkaline Phosphatase 80 U/L (38-126); Anion Gap 10 mmol/L; Blood Urea Nitrogen 11 mg/dL (9-20); Calcium 9.7 mg/dL (8.4-10.2); Carbon Dioxide 23 mmol/L (22-30); Chloride 99 mmol/L (98-107); Glucose 165 mg/dL (74-99); INR 0.9 (<1.2); Magnesium 1.6 mg/dL (1.6-2.3); Non-African American GFR(CKD) >90 (>60 ml/min/1.73 sqM); Partial Thromboplastin Time 22.7 sec (22.0-30.0); Potassium 4.1 mmol/L (3.5-5.1); Prothrombin Time 9.9 sec (9.0-12.0); Sodium 132 mmol/L (137-145); Total Bilirubin 0.3 mg/dL (0.2-1.3); Total Protein 6.2 g/dL (6.3-8.2)
[2021-02-03 21:33] LABS: Anisocytosis Moderate; HCT 32.5 % (39.0-53.0); HGB 11.3 gm/dL (13.0-17.5); MCH 33.1 pg (25.0-35.0); MCHC 34.6 g/dL (31.0-37.0); MCV 95.5 fL (80.0-100.0); Macrocytosis Slight; Mean Platelet Volume 7.7; Platelet Count 499 k/uL (150-450); RBC 3.41 m/uL (4.30-5.90); RDW 20.5 % (11.5-15.5)
--- NOTE | 2021-02-03 21:50 | XR ---
EXAMINATION TYPE: XR chest 2V DATE OF EXAM: 02/03/2021 COMPARISON: NONE HISTORY: Weakness TECHNIQUE: 2 views FINDINGS: Heart and mediastinum are normal. Lungs are clear of infiltrate. There is right central darwin ous catheter with tip in the superior vena cava. IMPRESSION: No active cardiopulmonary disease. There is clearing of the interstitial bilateral pneumo gail compared to old exam.
[2021-02-03 22:47] LABS: Anisocytosis (M) Present; Band Neutrophils % 9 %; Eosinophils # (M) 0.05 k/uL (0-0.7); Lymphocytes # (M) 0.85 k/uL (1.0-4.8); Neutrophils % (M) 57 %; Nucleated Red Blood Cells 0 /100 WBC (0-0); Polychromasia Present; Total Cells Counted 100
[2021-02-03] MEDS ORDERED: guaiFENesin 600 MG TABLET.ER PO STA (23:41)
[2021-02-04 00:37] LABS: Appearance,Urine Clear (Clear); Bilirubin,Urine Negative (Negative); Blood,Urine Negative (Negative); Color,Urine Yellow; Glucose,Urine (UA) Negative (Negative); Ketones,Urine Negative (Negative); Leukocyte Esterase,Urine Negative (Negative); Nitrite,Urine Negative (Negative); PH, Urine 5.5 (5.0-8.0); Protein,Urine Trace (Negative); Specific Gravity,Urine 1.016 (1.001-1.035); Urobilinogen,Urine <2.0 mg/dL (<2.0)
[2021-02-04 01:32] VITALS: BP 122/100; PULSE 74; TEMP 98.1
== END 2021-02-04 01:17 | disposition home or self-care (01) ==
LOC: EC 20:14
DX: R53.1 Weakness (principal); J45.909 Unspecified asthma, uncomplicated; E11.9 Type 2 diabetes mellitus without complications; I10 Essential (primary) hypertension; M19.90 Unspecified osteoarthritis, unspecified site; K21.9 Gastro-esophageal reflux disease without esophagitis; E03.9 Hypothyroidism, unspecified; F41.9 Anxiety disorder, unspecified; Z86.16 Personal history of COVID-19; Z87.891 Personal history of nicotine dependence; Z79.4 Long term (current) use of insulin; Z79.890 Hormone replacement therapy; Z79.51 Long term (current) use of inhaled steroids; Z79.899 Other long term (current) drug therapy
CPT/HCPCS: 36415; 71046; 80053; 81003; 83605; 83735; 84484; 85025; 85610; 85730; 87040; 93005; 99285

== ENCOUNTER 2021-03-13 16:17 | Observation (INO) | payer MEDICARE, BC ==
[2021-03-13] MEDS ORDERED: SODIUM CHLORIDE 0.9% 500 ML 500 ML IV STA (16:53)
--- NOTE | 2021-03-13 16:59 | ED ---
General Adult HPI - General Chief complaint: Weakness Stated complaint: weakness Time Seen by Provider: 03/13/21 16:36 Source: patient, EMS Mode of arrival: EMS Limitations: no limitations - History of Present Illness Initial comments: This is a 75-year-old male patient who presents to the emergency room via EMS with complaints of generalized weakness and headache with thick mucous in his mouth and throat. Patient states that he was discharged from the hospital in January for throat cancer and he has had TPN feedings. He does take some oral intake and states tries to eat oatmeal in the mornings but is still having trouble. He states that he has been having occasional diarrhea and he has been having some vomiting because of the thick mucous in his mouth and throat which is making him gag. He denies any fevers or cough. He believes he is d ehydrated. He does get around his home in a wheelchair and walker. He states he is not taking any chemotherapy meds and is not getting radiation at this time. He lives at home and his ex- has been caring for him. -: month(s) (2) Location: mouth Severity scale (1-10): 0 Associated Symptoms: cough, malaise, nausea/vomiting, weakness, other (Occasional diarrhea) Treatments Prior to Arrival: none - Related Data Home Medications Medication Instructions Recorded Confirmed Levothyroxine Sodium [Synthroid] 150 mcg PO DAILY 07/04/20 03/13/21 Pantoprazole [Protonix] 40 mg PO HS@1830 02/03/21 03/13/21 Pravastatin Sodium [Pravachol] 40 mg PO HS@1830 02/03/21 03/13/21 Prochlorperazine [Compazine] 10 mg PO DAILY PRN 02/03/21 03/13/21 Sertraline [Zoloft] 50 mg PO HS@1830 02/03/21 03/13/21 amLODIPine [Norvasc] 5 mg PO HS@1830 02/03/21 03/13/21 Insulin Lispro [humaLOG Kwikpen] See Protocol SQ AC-TID 03/13/21 03/13/21 Sertraline [Zoloft] 25 mg PO HS@1830 03/13/21 03/13/21 guaiFENesin [Mucinex] 600 mg PO DAILY 03/13/21 03/13/21 Allergies Allergy/AdvReac Type Severity Reaction Status Date / Time No Known Allergies Allergy Verified 02/03/21 22:28 Review of Systems ROS Statement: Those systems with pertinent positive or pertinent negative responses have been documented in the HPI. ROS Other: All systems not noted in ROS Statement are negative. Past Medical History Past Medical History: Cancer, COPD, Diabetes Mellitus, Eye Disorder, GERD/Reflux, Hypertension, Osteoarthritis (OA), Pneumonia, Thyroid Disorder Additional Past Medical History / Comment(s): Pt states he tested + for covid on 05/31/20 at [facility] and was hospitalized at [facility] same day. Other hx: Weakness since covid infection/falls, NIDDM type II with uncontrolled blood suga r since being on steroid, skin cancer with removals, colitis, hypothyroid, R eye cataract, pain base L thumb History of Any Multi-Drug Resistant Organisms: None Reported Additional Past Surgical History / Comment(s): Throat lesion benign bx, skin can cer removal x2, L eye cataract removed, colonoscopy. Past Anesthesia/Blood Transfusion Reactions: No Reported Reaction Past Psychological History: Anxiety Smoking Status: Former smoker Past Alcohol Use History: None Reported Past Drug Use History: None Reported - Past Family History Father Family Medical History: Cancer Additional Family Medical History / Comment(s): Father of throat cancer. Mother Family Medical History: Cancer, Dementia, Thyroid Disorder Additional Family Medical History / Comment(s): Mother had breast cancer. General Exam Limitations: no limitations General appearance: alert, in no apparent distress Head exam: Present: atraumatic, normocephalic, normal inspection Eye exam: Present: normal appearance, PERRL, EOMI. Absent: scleral icterus, conjunctival injection, periorbital swelling ENT exam: Present: mucous membranes moist, other (Thick yellow-green sticky muc us coating the upper palate, teeth and tongue) Neck exam: Present: normal inspection, full ROM. Absent: tenderness, meningismus, lymphadenopathy Respiratory exam: Present: normal lung sounds bilaterally. Absent: respiratory distress, wheezes, rales, rhonchi, stridor, chest wall tenderness, accessory muscle use Cardiovascular Exam: Present: regular rate, normal rhythm, normal heart sounds. Absent: systolic murmur, diastolic murmur, rubs, gallop, clicks GI/Abdominal exam: Present: soft, normal bowel sounds. Absent: distended, tenderness, guarding, rebound, rigid Back exam: Present: normal inspection, full ROM. Absent: tenderness, CVA tenderness (R), CVA tenderness (L), rash noted Neurological exam: Present: alert, oriented X3 Psychiatric exam: Present: normal affect, normal mood Skin exam: Present: warm, dry, intact, normal color. 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 There is no leukocytosis. His electrolytes are unremarkable. His lactic acid is negative. His troponin is negative at 0.012 and his EKG shows normal sinus rhythm. Patient continues to complain of generalized weakness and inability to care for himself. Case discussed with Dr. Steele. He will be admitted for observation and reevaluation. - Lab Data Result diagrams: 03/13/21 17:03 03/13/21 17:03 Lab Results 03/13/21 03/13/21 03/13/21 Range/Units 17:03 17:03 17:03 WBC 7.8 (3.8-10.6) k/uL RBC 4.03 L (4.30-5.90) m/uL Hgb 13.5 (13.0-17.5) gm/dL Hct 39.8 (39.0-53.0) % MCV 98.8 (80.0-100.0) fL MCH 33.6 (25.0-35.0) pg MCHC 34.0 (31.0-37.0) g/dL RDW 15.9 H (11.5-15.5) % Plt Count 260 (150-450) k/uL MPV 7.7 Neutrophils % 69 % Lymphocytes % 18 % Monocytes % 6 % Eosinophils % 5 % Basophils % 0 % Neutrophils # 5.4 (1.3-7.7) k/uL Lymphocytes # 1.4 (1.0-4.8) k/uL Monocytes # 0.4 (0-1.0) k/uL Eosinophils # 0.4 (0-0.7) k/uL Basophils # 0.0 (0-0.2) k/uL Macrocytosis Slight PT 10.4 (9.0-12.0) sec INR 1.0 (<1.2) APTT 22.5 (22.0-30.0) sec Sodium 133 L (137-145) mmol/L Potassium 4.4 (3.5-5.1) mmol/L Chloride 102 (98-107) mmol/L Carbon Dioxide 21 L (22-30) mmol/L Anion Gap 10 mmol/L BUN 19 (9-20) mg/dL Creatinine 0.69 (0.66-1.25) mg/dL Est GFR (CKD-EPI)AfAm >90 (>60 ml/min/1.73 sqM) Est GFR (CKD-EPI)NonAf >90 (>60 ml/min/1.73 sqM) Glucose 151 H (74-99) mg/dL Plasma Lactic Acid Addy (0.7-2.0) mmol/L Calcium 9.9 (8.4-10.2) mg/dL Magnesium 1.8 (1.6-2.3) mg/dL Total Bilirubin 0.3 (0.2-1.3) mg/dL AST 32 (17-59) U/L ALT 20 (4-49) U/L Alkaline Phosphatase 64 (38-126) U/L Troponin I (0.000-0.034) ng/mL Total Protein 6.9 (6.3-8.2) g/dL Albumin 3.8 (3.5-5.0) g/dL Coronavirus (PCR) (Not Detectd) 03/13/21 03/13/21 03/13/21 Range/Units 17:03 17:03 20:21 WBC (3.8-10.6) k/uL RBC (4.30-5.90) m/uL Hgb (13.0-17.5) gm/dL Hct (39.0-53.0) % MCV (80.0-100.0) fL MCH (25.0-35.0) pg MCHC (31.0-37.0) g/dL RDW (11.5-15.5) % Plt Count (150-450) k/uL MPV Neutrophils % % Lymphocytes % % Monocytes % % Eosinophils % % Basophils % % Neutrophils # (1.3-7.7) k/uL Lymphocytes # (1.0-4.8) k/uL Monocytes # (0-1.0) k/uL Eosinophils # (0-0.7) k/uL Basophils # (0-0.2) k/uL Macrocytosis PT (9.0-12.0) sec INR (<1.2) APTT (22.0-30.0) sec Sodium (137-145) mmol/L Potassium (3.5-5.1) mmol/L Chloride (98-107) mmol/L Carbon Dioxide (22-30) mmol/L Anion Gap mmol/L BUN (9-20) mg/dL Creatinine (0.66-1.25) mg/dL Est GFR (CKD-EPI)AfAm (>60 ml/min/1.73 sqM) Est GFR (CKD-EPI)NonAf (>60 ml/min/1.73 sqM) Glucose (74-99) mg/dL Plasma Lactic Acid Addy 1.1 (0.7-2.0) mmol/L Calcium (8.4-10.2) mg/dL Magnesium (1.6-2.3) mg/dL Total Bilirubin (0.2-1.3) mg/dL AST (17-59) U/L ALT (4-49) U/L Alkaline Phosphatase (38-126) U/L Troponin I <0.012 (0.000-0.034) ng/mL Total Protein (6.3-8.2) g/dL Albumin (3.5-5.0) g/dL Coronavirus (PCR) Not Detected (Not Detectd) Disposition Clinical Impression: Weakness Disposition: ADMITTED IP TO THIS [facility] Decision Date: 03/13/21 Decision Time: 20:00
[2021-03-13 17:14] LABS: Basophils % (A) 0 %; Eosinophils # (A) 0.4 k/uL (0-0.7); Eosinophils % (A) 5 %; HCT 39.8 % (39.0-53.0); HGB 13.5 gm/dL (13.0-17.5); Lymphocytes # (A) 1.4 k/uL (1.0-4.8); Lymphocytes % (A) 18 %; MCH 33.6 pg (25.0-35.0); MCV 98.8 fL (80.0-100.0); Macrocytosis Slight; Mean Platelet Volume 7.7; Monocytes # (A) 0.4 k/uL (0-1.0); Monocytes % (A) 6 %; Neutrophils # (A) 5.4 k/uL (1.3-7.7); Neutrophils % (A) 69 %; Platelet Count 260 k/uL (150-450); RBC 4.03 m/uL (4.30-5.90); RDW 15.9 % (11.5-15.5); WBC 7.8 k/uL (3.8-10.6)
[2021-03-13 17:26] LABS: ALT 20 U/L (4-49); AST 32 U/L (17-59); African American GFR (CKD) >90 (>60 ml/min/1.73 sqM); Albumin 3.8 g/dL (3.5-5.0); Alkaline Phosphatase 64 U/L (38-126); Anion Gap 10 mmol/L; Blood Urea Nitrogen 19 mg/dL (9-20); Calcium 9.9 mg/dL (8.4-10.2); Carbon Dioxide 21 mmol/L (22-30); Chloride 102 mmol/L (98-107); Glucose 151 mg/dL (74-99); Magnesium 1.8 mg/dL (1.6-2.3); Non-African American GFR(CKD) >90 (>60 ml/min/1.73 sqM); Potassium 4.4 mmol/L (3.5-5.1); Sodium 133 mmol/L (137-145); Total Bilirubin 0.3 mg/dL (0.2-1.3); Total Protein 6.9 g/dL (6.3-8.2)
[2021-03-13 17:27] LABS: Partial Thromboplastin Time 22.5 sec (22.0-30.0); Prothrombin Time 10.4 sec (9.0-12.0)
--- NOTE | 2021-03-13 19:02 | XR ---
EXAMINATION TYPE: XR chest 2V DATE OF EXAM: 03/13/2021 COMPARISON: 02/03/2021 INDICATION: Weakness TECHNIQUE: Frontal and lateral views of the chest are obtained. FINDINGS: The heart size is normal. The pulmonary vasculature is normal. The lungs are clear. Port is present on the right with the tip in the superior vena cava region. Kin e hyperinflation is present with flattening of the diaphragms compatible with COPD IMPRESSION: 1. No acute pulmonary process. 2. COPD
[2021-03-13] MEDS ORDERED: NALOXONE 0.4 MG/ML 1 ML VIAL IV PRN (20:00)
[2021-03-14 01:42] LABS: Appearance,Urine Clear (Clear); Bilirubin,Urine Negative (Negative); Blood,Urine Negative (Negative); Color,Urine Yellow; Glucose,Urine (UA) Negative (Negative); Ketones,Urine Negative (Negative); Leukocyte Esterase,Urine Negative (Negative); Nitrite,Urine Negative (Negative); Protein,Urine Trace (Negative); Specific Gravity,Urine 1.028 (1.001-1.035)
[2021-03-14 06:21] LABS: Glucose,Whole Blood 119 mg/dL (75-99)
[2021-03-14 10:02] VITALS: BMI 27.2
[2021-03-14] MEDS ORDERED: PROCHLORPERAZINE 10 MG TAB PO PRN (10:48)
[2021-03-14] MEDS ORDERED: CARBAMIDE PEROXIDE 6.5% DROPS 15 ML BTL BOTH EARS STA (10:52)
[2021-03-14] MEDS: SODIUM CHLORIDE 0.9% 1,000 ML IV SCH (12:19)
--- NOTE | 2021-03-14 14:24 | P.HPIM ---
History of Present Illness 75-year-old pleasant male came in with complains of generalized weakness. Patient does have history of throat cancer and received treatment. This is in remission. Patient does have PEG tube. Dietary services evaluate the patient patient is a using much less to feedings than he is supposed to. Patient lives by himself. The other concern is patient probably cannot take care of himself . Other concern is patient probably will not be able to take care of herself. Discussed with the dietitian. Patient is bit dehydrated will recur and will require more nutritional support as well as of free water through the PEG tube same thing was discussed with the dietitian. Patient will be a valid by speech therapy and see if he can tolerate any by mouth diet and water. Patient will be evaluated by physical therapy. The Coumadin being on the recommendations patient will be discharged either home or to rehabilitation place with the above-mentioned changes in the PEG tube feedings. Patient was also complaining of wax in the years REVIEW OF SYSTEMS: CONSTITUTIONAL: No fever, no malaise, no fatigue. HEENT: No recent visual problems or hearing problems. Denied any sore throat. CARDIOVASCULAR: No chest pain, orthopnea, PND, no palpitations, no syncope. PULMONARY: No shortness of breath, no cough, no hemoptysis. GASTROINTESTINAL: No diarrhea, no nausea, no vomiting, no abdominal pain. NEUROLOGICAL: No headaches, no weakness, no numbness. HEMATOLOGICAL: Denies any bleeding or petechiae. GENITOURINARY: Denies any burning micturition, frequency, or urgency. MUSCULOSKELETAL/RHEUMATOLOGICAL: Denies any joint pain, swelling, or any muscle pain. ENDOCRINE: Denies any polyuria or polydipsia. The rest of the 14-point review of systems is negative. PHYSICAL EXAMINATION: GENERAL: The patient is alert and oriented x3, not in any acute distress. Well developed, well nourished. HEENT: Pupils are round and equally reacting to light. EOMI. No scleral icterus. No conjunctival pallor. Normocephalic, atraumatic. No pharyngeal erythema. No thyromegaly. CARDIOVASCULAR: S1 and S2 present. No murmurs, rubs, or gallops. PULMONARY: Chest is clear to auscultation, no wheezing or crackles. ABDOMEN: Soft, nontender, nondistended, normoactive bowel sounds. No palpable organomegaly. MUSCULOSKELETAL: No joint swelling or deformity. EXTREMITIES: No cyanosis, clubbing, or pedal edema. NEUROLOGICAL: Gross neurological examination did not reveal any focal deficits. SKIN: No rashes. Assessment and plan -Hypovolemic hyponatremia patient was given IV fluids -Generalized weakness: Physical therapy and occupational therapy evaluation -Throat cancer in remission patient has a PEG tube PEG tube feeding and regar ding his generalized weakness plan as mentioned above patient will be evaluated by physical therapy and occupational therapy depending on the recommendations patient will be the discharge home with home care are to rehabilitation -Type 2 diabetes mellitus Her gases within reflux disease -Hypertension -Hypothyroidism DVT prophylaxis: Lovenox Past Medical History Past Medical History: Cancer, COPD, Diabetes Mellitus, Eye Disorder, GERD/Reflux, Hypertension, Osteoarthritis (OA), Pneumonia, Thyroid Disorder Additional Past Medical History / Comment(s): Pt states he tested + for covid on 05/31/20 at [facility] and was hospitalized at [facility] same day. 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 Past Anesthesia/Blood Transfusion Reactions: No Reported Reaction Past Psychological History: Anxiety Smoking Status: Former smoker Past Alcohol Use History: None Reported Past Drug Use History: None Reported - Past Family History Father Family Medical History: Cancer Additional Family Medical History / Comment(s): Father of throat cancer. Mother Family Medical History: Cancer, Dementia, Thyroid Disorder Additional Family Medical History / Comment(s): Mother had breast cancer. Medications and Allergies Home Medications Medication Instructions Recorded Confirmed Type Levothyroxine Sodium [Synthroid] 150 mcg PO DAILY 07/04/20 03/13/21 History Pantoprazole [Protonix] 40 mg PO HS@1830 02/03/21 03/13/21 History Pravastatin Sodium [Pravachol] 40 mg PO HS@1830 02/03/21 03/13/21 History Prochlorperazine [Compazine] 10 mg PO DAILY PRN 02/03/21 03/13/21 History Sertraline [Zoloft] 50 mg PO HS@1830 02/03/21 03/13/21 History amLODIPine [Norvasc] 5 mg PO HS@1830 02/03/21 03/13/21 History Insulin Lispro [humaLOG Kwikpen] See Protocol SQ AC-TID 03/13/21 03/13/21 History Sertraline [Zoloft] 25 mg PO HS@1830 03/13/21 03/13/21 History guaiFENesin [Mucinex] 600 mg PO DAILY 03/13/21 03/13/21 History Allergies Allergy/AdvReac Type Severity Reaction Status Date / Time No Known Allergies Allergy Verified 02/03/21 22:28 Physical Exam Vitals: Vital Signs Temp Pulse Pulse Pulse Resp BP BP 03/14/21 08:00 18 03/14/21 07:27 97.5 F L 69 18 135/77 03/13/21 23:49 76 18 03/13/21 23:35 76 18 03/13/21 22:26 98.4 F 76 18 116/84 03/13/21 19:51 72 03/13/21 16:37 98.3 F 80 16 118/76 Pulse Ox 03/14/21 08:00 03/14/21 07:27 94 L 03/13/21 23:49 03/13/21 23:35 03/13/21 22:26 96 03/13/21 19:51 03/13/21 16:37 95 Intake and Output 03/13/21 03/14/21 03/14/21 22:59 06:59 14:59 Intake Total 200 Balance 200 Intake: Oral 200 Other: Voiding Method Urinal Urinal Weight 86.183 kg 86.183 kg Results CBC & Chem 7: 03/13/21 17:03 03/13/21 17:03 Labs: Abnormal Lab Results - Last 24 Hours (Table) 03/13/21 03/13/21 03/14/21 Range/Units 17:03 17:03 01:45 RBC 4.03 L (4.30-5.90) m/uL RDW 15.9 H (11.5-15.5) % Sodium 133 L (137-145) mmol/L Carbon Dioxide 21 L (22-30) mmol/L Glucose 151 H (74-99) mg/dL POC Glucose (mg/dL) (75-99) mg/dL Urine Protein Trace H (Negative) 03/14/21 Range/Units 06:19 RBC (4.30-5.90) m/uL RDW (11.5-15.5) % Sodium (137-145) mmol/L Carbon Dioxide (22-30) mmol/L Glucose (74-99) mg/dL POC Glucose (mg/dL) 119 H (75-99) mg/dL Urine Protein (Negative) Thrombosis Risk Factor Assmnt - Choose All That Apply Any of the Below Risk Factors Present?: Yes Other Risk Factors: Yes Each Risk Factor Represents 2 Points: Age 61-74 years Thrombosis Risk Factor Assessment Total Risk Factor Score: 2 Thrombosis Risk Factor Assessment Level: Low Risk
[2021-03-14] MEDS: guaiFENesin 600 MG TABLET.ER PO SCH (15:45)
[2021-03-14] MEDS ORDERED: SERTRALINE 25 MG TAB PO SCH (18:30)
[2021-03-14] MEDS ORDERED: PRAVASTATIN SODIUM 40 MG TAB PO SCH (18:30)
[2021-03-14] MEDS ORDERED: amLODIPine 5 MG TAB PO SCH (18:30)
[2021-03-14] MEDS ORDERED: SERTRALINE 50 MG TAB PO SCH (18:30)
[2021-03-14] MEDS ORDERED: PANTOPRAZOLE 40 MG TABLET PO SCH (18:30)
[2021-03-15] MEDS: SODIUM CHLORIDE 0.9% 1,000 ML IV SCH ×2 (06:08→08:53)
[2021-03-15 06:19] VITALS: BP 117/56; PULSE 71; TEMP 96.1
[2021-03-15] MEDS ORDERED: LEVOTHYROXINE 75 MCG TAB PO SCH (06:30)
[2021-03-15 07:39] LABS: Glucose,Whole Blood 124 mg/dL (75-99)
[2021-03-15] MEDS: guaiFENesin 600 MG TABLET.ER PO SCH (08:52)
[2021-03-15] MEDS ORDERED: guaiFENesin 600 MG TABLET.ER PO SCH (09:00)
[2021-03-15] MEDS ORDERED: ENOXAPARIN 40 MG/0.4 ML SYRINGE SQ SCH (09:00)
[2021-03-15 11:46] VITALS: RESP 18
--- NOTE | 2021-03-15 11:46 | FL ---
EXAMINATION TYPE: FL barium swallow w video DATE OF EXAM: 03/15/2021 CLINICAL HISTORY: 75-year-old male rule out aspiration, history of throat cancer and recent completio n of radiation therapy. TECHNIQUE: Deglutition study is performed utilizing thin liquid barium, honey and nectar thick liqui d barium, barium thick applesauce, and barium coated cracker. Total fluoroscopy time: 4 minutes 14 seconds. Total images: None. Real-time fluoroscopy support was provided to speech pathology. COMPARISON: None. FINDINGS: There is generalized soft tissue swelling with thickening of the prevertebral space, epiglottis, and laryngeal tissues likely related to patient's radiation therapy. The patient is edentulous. The oral and pharyngeal phases show satisfactory initiation and propagation with all modalities tested. There is aspiration with thin liquids. Deep penetration with coating of the vocal folds with nectar liquid. The other consistencies showed no penetration or aspiration. IMPRESSION: Some generalized soft tissue swelling relating to the patient's radiation therapy. Aspiration with th in liquids. Deep penetration with coating of the vocal folds with nectar liquids. The other consisten cies showed no penetration or aspiration. Please refer to speech therapist notes for further details if necessary.
--- NOTE | 2021-03-15 13:37 | P.DS ---
Providers Date of admission: 03/13/21 20:59 Attending physician: Tomas Francis Primary care physician: Gene Noble [facility] Course: Final diagnosis -Hypovolemic hyponatremia -Generalized weakness -Throat cancer in remission patient has a PEG tube -Type 2 diabetes mellitus -Gastroesophageal reflux disease -Hypertension -Hypothyroidism -DVT prophylaxis -Full code Discharge disposition Patient is being discharged in a stable condition with guarded prognosis to [facility] for continued PT/OT therapy. Patient will follow-up with Dr. Noble in the outpatient setting upon discharge. Patient is to continue with tube feeds and pured diet and aspiration precautions as instructed below. Total time taken is greater than 35 minutes. Hospital course 75-year-old pleasant male came in with complains of generalized weakness. Patient does have history of throat cancer and received treatment. This is in remission. Patient does have PEG tube. Dietary services evaluate the patient patient is a using much less to feedings than he is supposed to. Patient lives by himself. The other concern is patient probably cannot take care of himself . Other concern is patient probably will not be able to take care of herself. Discussed with the dietitian. Patient is bit dehydrated will recur and will require more nutritional support as well as of free water through the PEG tube same thing was discussed with the dietitian. Patient will be a valid by speech therapy and see if he can tolerate any by mouth diet and water. Patient will be evaluated by physical therapy. The Coumadin being on the recommendations patient will be discharged either home or to rehabilitation place with the above-mentioned changes in the PEG tube feedings. Patient was also complaining of wax in the years 03/15/2021 Patient is seen in follow-up this morning and underwent modified barium swallow and patient okayed by speech therapy to continue with pured diet and honey thickened liquids with some free water and aspiration precautions with head of the bed elevated 30-45 at all times, supervision with meals, 1-1. Patient weak and will be going to [facility] for some strength and mobility and continued PT/OT therapy. Patient to continue with tube feeds as well. Currently no reports of chest pain, shortness of breath, or palpitations. Patient is afebrile. No reports of nausea or vomiting and patient is tolerating diet. Patient will be going to [facility]. GENERAL: The patient is alert and oriented x3, not in any acute distress. Well developed, well nourished. HEENT: Pupils are round and equally reacting to light. EOMI. No scleral icterus. No conjunctival pallor. Normocephalic, atraumatic. No pharyngeal erythema. No thyromegaly. CARDIOVASCULAR: S1 and S2 present. No murmurs, rubs, or gallops. PULMONARY: Chest is clear to auscultation, no wheezing or crackles. ABDOMEN: Soft, nontender, nondistended, normoactive bowel sounds. No palpable organomegaly. MUSCULOSKELETAL: No joint swelling or deformity. EXTREMITIES: No cyanosis, clubbing, or pedal edema. NEUROLOGICAL: Gross neurological examination did not reveal any focal deficits. SKIN: No rashes. Please refer to medication reconciliation sheet for a list of medications. Patient Condition at Discharge: Stable Plan - Discharge Summary Discharge Rx Participant: No New Discharge Prescriptions: Continue Levothyroxine Sodium [Synthroid] 150 mcg PO DAILY Prochlorperazine [Compazine] 10 mg PO DAILY PRN PRN Reason: Nausea Sertraline [Zoloft] 50 mg PO HS@1830 guaiFENesin [Mucinex] 600 mg PO DAILY amLODIPine [Norvasc] 5 mg PO HS@1830 Pantoprazole [Protonix] 40 mg PO HS@1830 Pravastatin Sodium [Pravachol] 40 mg PO HS@1830 Insulin Lispro [humaLOG Kwikpen] See Protocol SQ AC-TID Sertraline [Zoloft] 25 mg PO HS@1830 Discharge Medication List Levothyroxine Sodium [Synthroid] 150 mcg PO DAILY 07/04/20 [History] Pantoprazole [Protonix] 40 mg PO HS@1830 02/03/21 [History] Pravastatin Sodium [Pravachol] 40 mg PO HS@1830 02/03/21 [History] Prochlorperazine [Compazine] 10 mg PO DAILY PRN 02/03/21 [History] Sertraline [Zoloft] 50 mg PO HS@1830 02/03/21 [History] amLODIPine [Norvasc] 5 mg PO HS@1830 02/03/21 [History] Insulin Lispro [humaLOG Kwikpen] See Protocol SQ AC-TID 03/13/21 [History] Sertraline [Zoloft] 25 mg PO HS@1830 03/13/21 [History] guaiFENesin [Mucinex] 600 mg PO DAILY 03/13/21 [History] Follow up Appointment(s)/Referral(s): Gene Noble III, MD [Primary Care Provider] - 3 Days Activity/Diet/Wound Care/Special Instructions: Patient is going to ECF Activity as tolerated Patient has tube feedings of Glucerna 1.5 3 times a day at 8, 11:30 AM, 4 PM with 237 mL- 8 ounce feedings Maintain aspiration precautions of head of the bed elevated 30-45 at all times and supervision with meals as patient states he takes medications by mouth and occasionally eats by mouth as well, swallow eval was performed and patient ok to have free water, dysphagia pured diet with honey thickened liquids and again strict aspiration precautions Follow-up with primary care provider on discharge Discharge Disposition: TRANSFER TO SNF/ECF Care Plan Goals (MU): Nutrition Recommendations: Estimated needs [id number] kcals, 86-103 g protein, 0819-5888 ml fluid per day. Bolus feeding Glucerna 1.2, 7-8cans per day to meet 100% of needs from tube feeding. 2 cans, 3 times per day, with 1-2 cans as HS snack. Decrease if consuming food by mouth. Additional free water flushes: 30ml free water before and after each bolus feeding
== END 2021-03-15 16:10 ==
LOC: EC 16:17 → 6NMEDSUR 20:59 → 1SOBS 03-14 09:50
PROVIDERS: ADMIT Hospitalist; ATTEND Hospitalist
DX: E86.1 Hypovolemia (principal); E87.1 Hypo-osmolality and hyponatremia; R53.1 Weakness; Z85.819 Personal history of malignant neoplasm of unspecified site of lip, oral cavity, and pharynx; Z93.1 Gastrostomy status; E11.9 Type 2 diabetes mellitus without complications; K21.9 Gastro-esophageal reflux disease without esophagitis; I10 Essential (primary) hypertension; E03.9 Hypothyroidism, unspecified; M79.645 Pain in left finger(s); E86.0 Dehydration; R19.7 Diarrhea, unspecified; R11.10 Vomiting, unspecified; J44.9 Chronic obstructive pulmonary disease, unspecified; F41.9 Anxiety disorder, unspecified; M19.90 Unspecified osteoarthritis, unspecified site; Z20.822 Contact with and (suspected) exposure to COVID-19; Z87.01 Personal history of pneumonia (recurrent); Z86.16 Personal history of COVID-19; Z91.81 History of falling; Z87.891 Personal history of nicotine dependence; Z85.828 Personal history of other malignant neoplasm of skin; Z87.19 Personal history of other diseases of the digestive system; Z79.890 Hormone replacement therapy; Z79.899 Other long term (current) drug therapy; Z80.0 Family history of malignant neoplasm of digestive organs; Z80.3 Family history of malignant neoplasm of breast; Z81.8 Family history of other mental and behavioral disorders; Z83.49 Family history of other endocrine, nutritional and metabolic diseases
CPT/HCPCS: 96372; 96360; 99285; 36415; 93005; 97530; 97162; 97166; 92610; 92526; 92611; 80053; 83605; 83735; 84484; 85025; 85610; 85730; 81003; 87635; 74230; 71046; G0378 ×4; J1650

== ENCOUNTER 2021-07-25 11:09 | Emergency (ER) | payer MEDICARE, BC ==
[2021-07-25 11:17] VITALS: TEMP 98.5
[2021-07-25] MEDS ORDERED: SODIUM CHLORIDE 0.9% 1,000 ML IV STA ×2 (11:27→13:34)
[2021-07-25 12:09] LABS: Basophils % (A) 0 %; Eosinophils % (A) 1 %; HCT 41.2 % (39.0-53.0); HGB 13.4 gm/dL (13.0-17.5); Lymphocytes % (A) 12 %; MCH 30.1 pg (25.0-35.0); MCHC 32.5 g/dL (31.0-37.0); MCV 92.6 fL (80.0-100.0); Monocytes # (A) 0.5 k/uL (0-1.0); Monocytes % (A) 7 %; Neutrophils # (A) 6.3 k/uL (1.3-7.7); Neutrophils % (A) 79 %; Platelet Count 174 k/uL (150-450); RBC 4.45 m/uL (4.30-5.90); WBC 8.1 k/uL (3.8-10.6)
--- NOTE | 2021-07-25 12:17 | XR ---
EXAMINATION TYPE: XR chest 2V DATE OF EXAM: 07/25/2021 COMPARISON: 03/13/2021 TECHNIQUE: PA and lateral views submitted. HISTORY: Weakness FINDINGS: Mediport catheter seen is diffuse osteopenia and arthropathy of the shoulders. Hyperinflation suggest s COPD and there is left basilar subsegmental consolidation. No pneumothorax or pleural effusion. IMPRESSION: 1. COPD with suspected chronic interstitial lung disease and left basilar atelectasis or early infilt rate correlate clinically.
[2021-07-25 12:19] LABS: INR 1.1 (<1.2); Partial Thromboplastin Time 23.7 sec (22.0-30.0); Prothrombin Time 11.4 sec (9.0-12.0)
[2021-07-25 12:25] LABS: ALT 13 U/L (4-49); AST 16 U/L (17-59); African American GFR (CKD) >90 (>60 ml/min/1.73 sqM); Albumin 3.4 g/dL (3.5-5.0); Alkaline Phosphatase 50 U/L (38-126); Anion Gap 9 mmol/L; Blood Urea Nitrogen 16 mg/dL (9-20); Calcium 9.2 mg/dL (8.4-10.2); Carbon Dioxide 24 mmol/L (22-30); Chloride 103 mmol/L (98-107); Glucose 155 mg/dL (74-99); Magnesium 1.5 mg/dL (1.6-2.3); Non-African American GFR(CKD) 86 (>60 ml/min/1.73 sqM); Potassium 4.2 mmol/L (3.5-5.1); Sodium 136 mmol/L (137-145); Total Bilirubin 0.8 mg/dL (0.2-1.3); Total Protein 6.1 g/dL (6.3-8.2)
--- NOTE | 2021-07-25 13:21 | ED ---
General Adult HPI - General Source: patient, EMS, RN notes reviewed, old records reviewed Mode of arrival: EMS <Viktor Griffiths - Last Filed: 07/25/21 13:40> <Rg Perez - Last Filed: 07/25/21 16:37> - General Chief complaint: Weakness Stated complaint: weakness Time Seen by Provider: 07/25/21 11:23 - History of Present Illness Initial comments: Patient is a 75-year-old male who presents to the city Department complaining of dryness weakness has been an ongoing issue. States today, he felt weak and brought himself onto his knees. His caregiver as well as his daughter wanted him to the emergency department to be evaluated. He has no acute complaints at this time, is endorsing generalized weakness. Denies any shortness of breath, chest pain, abdominal pain, nausea, vomiting. Denies any headache, sensory deficits. Denies any lower extremity edema. Denies any fevers, chills, cough. Does endorse decreased appetite. Has not been drinking as much water. Uncertain what the Cause of His Symptoms. Patient Otherwise Is Well-Appearing and in Good Spirits. States He Believes This Is Somewhat Chronic Secondary to His Covid 19 Infection Last Year. He States He Never Fully Recovered Afterwards. Has Been in a Nursing Facilities, Rehab. (Viktor Griffiths) - Related Data Home Medications Medication Instructions Recorded Confirmed Levothyroxine Sodium [Synthroid] 150 mcg PO DAILY 07/04/20 07/25/21 Pantoprazole [Protonix] 40 mg PO HS@1830 02/03/21 07/25/21 Sertraline [Zoloft] 50 mg PO HS@1830 02/03/21 07/25/21 amLODIPine [Norvasc] 5 mg PO HS@1830 02/03/21 07/25/21 Insulin Lispro [humaLOG Kwikpen] See Protocol SQ AC-TID 03/13/21 07/25/21 Sertraline [Zoloft] 25 mg PO HS@1830 03/13/21 07/25/21 Bacitracin Ophth Ointment 1 applic BOTH EYES TID 07/25/21 07/25/21 Allergies Allergy/AdvReac Type Severity Reaction Status Date / Time NSAIDS (Non-Steroidal AdvReac GI BLEED Verified 07/25/21 12:35 Anti-Inflamma Review of Systems ROS Other: All systems not noted in ROS Statement are negative. <Viktor Griffiths - Last Filed: 07/25/21 13:40> ROS Other: All systems not noted in ROS Statement are negative. <Rg Perez - Last Filed: 07/25/21 16:37> ROS Statement: Those systems with pertinent positive or pertinent negative responses have been documented in the HPI. Review of Systems: CONST: Denies fever EYES: Denies blurry vision ENT: Denies nasal congestion C/V: Denies Chest pain RESP: Denies shortness of breath GI: Denies abdominal pain : Denies dysuria SKIN: Denies rash. MSK: Denies joint pain. NEURO: Denies headache (Viktor Griffiths) Past Medical History Past Medical History: Cancer, COPD, Diabetes Mellitus, Eye Disorder, GERD/Reflux, Hypertension, Osteoarthritis (OA), Pneumonia, Thyroid Disorder Additional Past Medical History / Comment(s): Pt states he tested + for covid on 05/31/20 at [facility] and was hospitalized at [facility] same day. 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 Past Anesthesia/Blood Transfusion Reactions: No Reported Reaction Past Psychological History: Anxiety Smoking Status: Former smoker Past Alcohol Use History: None Reported Past Drug Use History: None Reported - Past Family History Father Family Medical History: Cancer Additional Family Medical History / Comment(s): Father of throat cancer. Mother Family Medical History: Cancer, Dementia, Thyroid Disorder Additional Family Medical History / Comment(s): Mother had breast cancer. <Viktor Griffiths - Last Filed: 07/25/21 13:40> General Exam <Viktor Griffiths - Last Filed: 07/25/21 13:40> - General Exam Comments Initial Comments: General: Appears in no acute distress. HEAD: Normal with no signs of head trauma. EYES: PERRLA, EOMI, conjunctiva normal, no discharge. Pupils are 3 mm and equal bilaterally. ENT: Hearing grossly intact, normal oropharynx. RESPIRATORY: Clear breath sounds bilaterally. No wheezes, rales, or rhonchi. C/V: Regular rate and rhythm. S1 and S2 auscultated, no edema, peripheral pulses 2+ and intact throughout ABD: Abd is soft, nontender, nondistended EXT: Normal range of motion, no obvious deformity SKIN: No rashes or lesions observed on exposed skin. NEURO: Alert and oriented x 4. Cranial nerves II-XII intact. No focal sensory or strength deficits. NIH is 0. GCS is 15. (Viktor Griffiths) Course Vital Signs 07/25/21 11:14 Temperature 98.5 F Pulse Rate 78 Respiratory 16 Rate Blood Pressure 103/60 O2 Sat by Pulse 94 L Oximetry Medical Decision Making - Lab Data Result diagrams: 07/25/21 11:34 07/25/21 11:34 - EKG Data -: EKG Interpreted by Me <Viktor Griffiths - Last Filed: 07/25/21 13:40> - Lab Data Result diagrams: 07/25/21 11:34 07/25/21 11:34 - Radiology Data Radiology results: image reviewed (Chest x-ray shows COPD with suspected chronic interstitial lung disease. Left basilar atelectasis or early infiltrate.) <Rg Perez - Last Filed: 07/25/21 16:37> - Medical Decision Making Based on patient's presentation and physical exam, I'm concerned for his gen eralized weakness candidate. Could be chronic versus acute dehydration. We will obtain infectious etiology labs in addition to cardiac workup. He was in agreement this plan. He'll receive IV fluids. We'll check for UTI. Patient was in agreement this plan. Chest x-ray revealed no acute cardiopulmonary process, but does reveal chronic lung disease. Laboratory studies are remarkable for a slightly elevated lactic acid of 2.3, likely secondary to reduced by mouth intake of fluids. Troponin is negative. Remainder of the labs are unremarkable. At this time we are still waiting for urinalysis. He will be given an additional fluid bolus. Patient was in agreement this plan. (Viktor Griffiths) Patient reevaluated and resting comfortable in bed. Patient requesting discharge home. Patient updated on results and need for follow-up. Patient denies any respiratory issues including cough or fever. (Rg Perez) - Lab Data Lab Results 07/25/21 07/25/21 07/25/21 Range/Units 11:34 11:34 11:34 WBC 8.1 (3.8-10.6) k/uL RBC 4.45 (4.30-5.90) m/uL Hgb 13.4 (13.0-17.5) gm/dL Hct 41.2 (39.0-53.0) % MCV 92.6 (80.0-100.0) fL MCH 30.1 (25.0-35.0) pg MCHC 32.5 (31.0-37.0) g/dL RDW 14.0 (11.5-15.5) % Plt Count 174 (150-450) k/uL MPV 8.0 Neutrophils % 79 % Lymphocytes % 12 % Monocytes % 7 % Eosinophils % 1 % Basophils % 0 % Neutrophils # 6.3 (1.3-7.7) k/uL Lymphocytes # 1.0 (1.0-4.8) k/uL Monocytes # 0.5 (0-1.0) k/uL Eosinophils # 0.0 (0-0.7) k/uL Basophils # 0.0 (0-0.2) k/uL PT 11.4 (9.0-12.0) sec INR 1.1 (<1.2) APTT 23.7 (22.0-30.0) sec Sodium 136 L (137-145) mmol/L Potassium 4.2 (3.5-5.1) mmol/L Chloride 103 (98-107) mmol/L Carbon Dioxide 24 (22-30) mmol/L Anion Gap 9 mmol/L BUN 16 (9-20) mg/dL Creatinine 0.86 (0.66-1.25) mg/dL Est GFR (CKD-EPI)AfAm >90 (>60 ml/min/1.73 sqM) Est GFR (CKD-EPI)NonAf 86 (>60 ml/min/1.73 sqM) Glucose 155 H (74-99) mg/dL Lactic Ac Sepsis Rflx Plasma Lactic Acid Addy (0.7-2.0) mmol/L Calcium 9.2 (8.4-10.2) mg/dL Magnesium 1.5 L (1.6-2.3) mg/dL Total Bilirubin 0.8 (0.2-1.3) mg/dL AST 16 L (17-59) U/L ALT 13 (4-49) U/L Alkaline Phosphatase 50 (38-126) U/L Troponin I (0.000-0.034) ng/mL Total Protein 6.1 L (6.3-8.2) g/dL Albumin 3.4 L (3.5-5.0) g/dL Urine Color Urine Appearance (Clear) Urine pH (5.0-8.0) Ur Specific [place] (1.001-1.035) Urine Protein (Negative) Urine Glucose (UA) (Negative) Urine Ketones (Negative) Urine Blood (Negative) Urine Nitrite (Negative) Urine Bilirubin (Negative) Urine Urobilinogen (<2.0) mg/dL Ur Leukocyte Esterase (Negative) 07/25/21 07/25/21 07/25/21 Range/Units 11:34 11:41 12:27 WBC (3.8-10.6) k/uL RBC (4.30-5.90) m/uL Hgb (13.0-17.5) gm/dL Hct (39.0-53.0) % MCV (80.0-100.0) fL MCH (25.0-35.0) pg MCHC (31.0-37.0) g/dL RDW (11.5-15.5) % Plt Count (150-450) k/uL MPV Neutrophils % % Lymphocytes % % Monocytes % % Eosinophils % % Basophils % % Neutrophils # (1.3-7.7) k/uL Lymphocytes # (1.0-4.8) k/uL Monocytes # (0-1.0) k/uL Eosinophils # (0-0.7) k/uL Basophils # (0-0.2) k/uL PT (9.0-12.0) sec INR (<1.2) APTT (22.0-30.0) sec Sodium (137-145) mmol/L Potassium (3.5-5.1) mmol/L Chloride (98-107) mmol/L Carbon Dioxide (22-30) mmol/L Anion Gap mmol/L BUN (9-20) mg/dL Creatinine (0.66-1.25) mg/dL Est GFR (CKD-EPI)AfAm (>60 ml/min/1.73 sqM) Est GFR (CKD-EPI)NonAf (>60 ml/min/1.73 sqM) Glucose (74-99) mg/dL Lactic Ac Sepsis Rflx Y Plasma Lactic Acid Addy 2.3 H* (0.7-2.0) mmol/L Calcium (8.4-10.2) mg/dL Magnesium (1.6-2.3) mg/dL Total Bilirubin (0.2-1.3) mg/dL AST (17-59) U/L ALT (4-49) U/L Alkaline Phosphatase (38-126) U/L Troponin I <0.012 (0.000-0.034) ng/mL Total Protein (6.3-8.2) g/dL Albumin (3.5-5.0) g/dL Urine Color Urine Appearance (Clear) Urine pH (5.0-8.0) Ur Specific [place] (1.001-1.035) Urine Protein (Negative) Urine Glucose (UA) (Negative) Urine Ketones (Negative) Urine Blood (Negative) Urine Nitrite (Negative) Urine Bilirubin (Negative) Urine Urobilinogen (<2.0) mg/dL Ur Leukocyte Esterase (Negative) 07/25/21 07/25/21 Range/Units 14:44 15:50 WBC (3.8-10.6) k/uL RBC (4.30-5.90) m/uL Hgb (13.0-17.5) gm/dL Hct (39.0-53.0) % MCV (80.0-100.0) fL MCH (25.0-35.0) pg MCHC (31.0-37.0) g/dL RDW (11.5-15.5) % Plt Count (150-450) k/uL MPV Neutrophils % % Lymphocytes % % Monocytes % % Eosinophils % % Basophils % % Neutrophils # (1.3-7.7) k/uL Lymphocytes # (1.0-4.8) k/uL Monocytes # (0-1.0) k/uL Eosinophils # (0-0.7) k/uL Basophils # (0-0.2) k/uL PT (9.0-12.0) sec INR (<1.2) APTT (22.0-30.0) sec Sodium (137-145) mmol/L Potassium (3.5-5.1) mmol/L Chloride (98-107) mmol/L Carbon Dioxide (22-30) mmol/L Anion Gap mmol/L BUN (9-20) mg/dL Creatinine (0.66-1.25) mg/dL Est GFR (CKD-EPI)AfAm (>60 ml/min/1.73 sqM) Est GFR (CKD-EPI)NonAf (>60 ml/min/1.73 sqM) Glucose (74-99) mg/dL Lactic Ac Sepsis Rflx Plasma Lactic Acid Addy 0.9 (0.7-2.0) mmol/L Calcium (8.4-10.2) mg/dL Magnesium (1.6-2.3) mg/dL Total Bilirubin (0.2-1.3) mg/dL AST (17-59) U/L ALT (4-49) U/L Alkaline Phosphatase (38-126) U/L Troponin I (0.000-0.034) ng/mL Total Protein (6.3-8.2) g/dL Albumin (3.5-5.0) g/dL Urine Color Yellow Urine Appearance Clear (Clear) Urine pH 7.0 (5.0-8.0) Ur Specific [place] 1.014 (1.001-1.035) Urine Protein Negative (Negative) Urine Glucose (UA) Negative (Negative) Urine Ketones Negative (Negative) Urine Blood Negative (Negative) Urine Nitrite Negative (Negative) Urine Bilirubin Negative (Negative) Urine Urobilinogen <2.0 (<2.0) mg/dL Ur Leukocyte Esterase Negative (Negative) - EKG Data EKG Comments: 12-lead Electrocardiogram Interpretation Note EKG was reviewed and interpreted by myself. 12-lead ECG performed at 1136 is interpreted by me as revealing normal sinus rhythm at a rate of 75 beats per minute. [place] is normal. ME interval is 172 ms, QRS duration is 96 ms, QTc is 440 ms.. There were no ST or T wave abnormalities to suggest myocardial ischemia or injury. R wave progression across the precordium was satisfactory. By my interpretation this EKG is non-diagnostic for acute ischemia. (Viktor Griffiths) Disposition <Viktor Griffiths - Last Filed: 07/25/21 13:40> Is patient prescribed a controlled substance at d/c from ED?: No Time of Disposition: 16:37 <Rg Perez - Last Filed: 07/25/21 16:37> Clinical Impression: Weakness, Dehydration Disposition: HOME SELF-CARE Condition: Stable Instructions (If sedation given, give patient instructions): Weakness (ED), Dehydration (ED) Additional Instructions: Please do follow-up with your primary care physician in the next day or 2 for recheck. Return for cough or fever, increased weakness, shortness of breath, worsening or changing symptoms or other concerns. Referrals: Gene Noble III, MD [Primary Care Provider] - 1-2 days
[2021-07-25 14:52] LABS: Appearance,Urine Clear (Clear); Bilirubin,Urine Negative (Negative); Blood,Urine Negative (Negative); Color,Urine Yellow; Glucose,Urine (UA) Negative (Negative); Ketones,Urine Negative (Negative); Leukocyte Esterase,Urine Negative (Negative); Nitrite,Urine Negative (Negative); Protein,Urine Negative (Negative); Specific Gravity,Urine 1.014 (1.001-1.035); Urobilinogen,Urine <2.0 mg/dL (<2.0)
[2021-07-25] MEDS ORDERED: MAGNESIUM OXIDE 400 MG TAB PO STA (16:20)
[2021-07-25 17:00] VITALS: BP 118/63; PULSE 71; RESP 18
== END 2021-07-25 17:00 | disposition home or self-care (01) ==
LOC: EC 11:09
DX: E86.0 Dehydration (principal); R53.1 Weakness; E11.9 Type 2 diabetes mellitus without complications; I10 Essential (primary) hypertension; J44.9 Chronic obstructive pulmonary disease, unspecified; K21.9 Gastro-esophageal reflux disease without esophagitis; F41.9 Anxiety disorder, unspecified; E03.9 Hypothyroidism, unspecified; M19.90 Unspecified osteoarthritis, unspecified site; Z87.891 Personal history of nicotine dependence; Z79.4 Long term (current) use of insulin; Z79.890 Hormone replacement therapy; Z79.899 Other long term (current) drug therapy
CPT/HCPCS: 36415; 71046; 80053; 81003; 83605; 83735; 84484; 85025; 85610; 85730; 93005; 96360; 96361; 99285

== ENCOUNTER 2021-09-23 14:52 | Observation (INO) | payer MEDICARE, BC ==
[2021-09-23] MEDS ORDERED: SODIUM CHLORIDE 0.9% 1,000 ML IV STA (17:30)
[2021-09-23] MEDS ORDERED: PANTOPRAZOLE 40 MG/10 ML VIAL IVP STA (17:30)
--- NOTE | 2021-09-23 17:34 | ED ---
General Adult HPI - General Chief complaint: GI Bleed Stated complaint: Blood in stool Time Seen by Provider: 09/23/21 17:19 Source: patient, RN notes reviewed Mode of arrival: ambulatory Limitations: no limitations - History of Present Illness Initial comments: This is a pleasant 75-year-old male who presents complaining of gastrointestinal bleeding for the past for 5 days. He states it started out like dark stool but now over the past 2 days he has had some red blood noted in the toilet, especially in the morning. Patient denying any abdominal pain but states he has had some increased gas. No chest pain or shortness of breath. Patient states he is not on blood thinners. No problems with urination. No bleeding from other sites. No nausea or vomiting. Patient states he believes he had a colonoscopy done about 4 years ago which did not show any abnormality in the colon. Patient does have a history of throat cancer. No headache, no fever or chills, no changes in vision or hearing, no sore throat or difficulty with speech, no neck pain, no chest pain or shortness of breath, no abdominal pain, no nausea or vomiting, no changes in urination, no numbness or tingling, no extremity pain, no skin rashes or lesions. - Related Data Home Medications Medication Instructions Recorded Confirmed Levothyroxine Sodium [Synthroid] 150 mcg PO DAILY 07/04/20 07/25/21 Pantoprazole [Protonix] 40 mg PO HS@1830 02/03/21 07/25/21 Sertraline [Zoloft] 50 mg PO HS@1830 02/03/21 07/25/21 amLODIPine [Norvasc] 5 mg PO HS@1830 02/03/21 07/25/21 Insulin Lispro [humaLOG Kwikpen] See Protocol SQ AC-TID 03/13/21 07/25/21 Sertraline [Zoloft] 25 mg PO HS@1830 03/13/21 07/25/21 Bacitracin Ophth Ointment 1 applic BOTH EYES TID 07/25/21 07/25/21 Allergies Allergy/AdvReac Type Severity Reaction Status Date / Time NSAIDS (Non-Steroidal AdvReac GI BLEED Verified 09/23/21 15:08 Anti-Inflamma Review of Systems ROS Statement: Those systems with pertinent positive or pertinent negative responses have been documented in the HPI. ROS Other: All systems not noted in ROS Statement are negative. Past Medical History Past Medical History: Cancer, COPD, Diabetes Mellitus, Eye Disorder, GERD/Reflux, Hypertension, Osteoarthritis (OA), Pneumonia, Thyroid Disorder Additional Past Medical History / Comment(s): Pt states he tested + for covid on 05/31/20 at [facility] and was hospitalized at [facility] same day. 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 Past Anesthesia/Blood Transfusion Reactions: No Reported Reaction Past Psychological History: Anxiety Smoking Status: Former smoker Past Alcohol Use History: None Reported Past Drug Use History: None Reported - Past Family History Father Family Medical History: Cancer Additional Family Medical History / Comment(s): Father of throat cancer. Mother Family Medical History: Cancer, Dementia, Thyroid Disorder Additional Family Medical History / Comment(s): Mother had breast cancer. General Exam - General Exam Comments Initial Comments: Patient does not appear to be ill or toxic. Limitations: no limitations General appearance: alert, in no apparent distress Head exam: Present: atraumatic, normocephalic, normal inspection Eye exam: Present: normal appearance, PERRL, EOMI. Absent: scleral icterus, conjunctival injection, periorbital swelling ENT exam: Present: normal exam, mucous membranes moist Neck exam: Present: normal inspection. Absent: tenderness, meningismus, lymphadenopathy Respiratory exam: Present: normal lung sounds bilaterally. Absent: respiratory distress, wheezes, rales, rhonchi, stridor Cardiovascular Exam: Present: regular rate, normal rhythm, normal heart sounds. Absent: systolic murmur, diastolic murmur, rubs, gallop, clicks GI/Abdominal exam: Present: soft, normal bowel sounds. Absent: distended, tenderness, guarding, rebound, rigid Rectal exam: Present: normal rectal tone, prostate enlargement, other (Well- demarcated, macular perirectal rash consistent with probable candidiasis.). Absent: decreased rectal tone, black stool, bloody stool, fecal impaction, hemorrhoids, mass, tenderness Extremities exam: Present: normal inspection, full ROM, normal capillary refill. Absent: tenderness, pedal edema, joint swelling, calf tenderness Back exam: Present: normal inspection Neurological exam: Present: alert, oriented X3, CN II-XII intact Psychiatric exam: Present: normal affect, normal mood Skin exam: Present: warm, dry, intact, normal color. Absent: rash Course Vital Signs 09/23/21 09/23/21 09/23/21 15:06 18:08 20:33 Temperature 97.9 F Pulse Rate 91 88 75 Respiratory 16 18 18 Rate Blood Pressure 104/69 106/70 110/71 O2 Sat by Pulse 95 96 97 Oximetry - Reevaluation(s) Reevaluation #1: 09/23/21 20:32 Medical record is reviewed Symptoms are improved here in the emergency department Patient is informed of results and questions answered Patient in no distress EKG Findings - EKG Comments: EKG Findings:: EKG done at 1901 and read by the ED attending physician reveals sinus rhythm with frequent PVCs. Rate 67, normal axis, no acute respiratory pathology, normal intervals. No evidence of acute changes Medical Decision Making - Lab Data Result diagrams: 09/23/21 18:25 09/23/21 18:25 Lab Results 09/23/21 09/23/21 09/23/21 Range/Units 18:20 18:25 18:25 WBC 4.4 (3.8-10.6) k/uL RBC 4.44 (4.30-5.90) m/uL Hgb 13.3 (13.0-17.5) gm/dL Hct 41.6 (39.0-53.0) % MCV 93.8 (80.0-100.0) fL MCH 30.1 (25.0-35.0) pg MCHC 32.0 (31.0-37.0) g/dL RDW 13.9 (11.5-15.5) % Plt Count 162 (150-450) k/uL MPV 7.4 Neutrophils % (Manual) 41 % Band Neuts % (Manual) 10 % Lymphocytes % (Manual) 41 % Monocytes % (Manual) 7 % Eosinophils % (Manual) 1 % Neutrophils # (Manual) 2.20 (1.3-7.7) k/uL Lymphocytes # (Manual) 1.80 (1.0-4.8) k/uL Monocytes # (Manual) 0.31 (0-1.0) k/uL Eosinophils # (Manual) 0.04 (0-0.7) k/uL Nucleated RBCs 0 (0-0) /100 WBC Manual Slide Review Performed APTT 26.1 (22.0-30.0) sec Sodium (137-145) mmol/L Potassium (3.5-5.1) mmol/L Chloride (98-107) mmol/L Carbon Dioxide (22-30) mmol/L Anion Gap mmol/L BUN (9-20) mg/dL Creatinine (0.66-1.25) mg/dL Est GFR (CKD-EPI)AfAm (>60 ml/min/1.73 sqM) Est GFR (CKD-EPI)NonAf (>60 ml/min/1.73 sqM) Glucose (74-99) mg/dL Calcium (8.4-10.2) mg/dL Total Bilirubin (0.2-1.3) mg/dL AST (17-59) U/L ALT (4-49) U/L Alkaline Phosphatase (38-126) U/L Troponin I (0.000-0.034) ng/mL Total Protein (6.3-8.2) g/dL Albumin (3.5-5.0) g/dL Stool Occult Blood (Negative) Blood Type Blood Type Confirm A Negative Blood Type Recheck Bld Type Recheck Status Antibody Screen Spec Expiration Date 09/23/21 09/23/21 09/23/21 Range/Units 18:25 18:25 18:25 WBC (3.8-10.6) k/uL RBC (4.30-5.90) m/uL Hgb (13.0-17.5) gm/dL Hct (39.0-53.0) % MCV (80.0-100.0) fL MCH (25.0-35.0) pg MCHC (31.0-37.0) g/dL RDW (11.5-15.5) % Plt Count (150-450) k/uL MPV Neutrophils % (Manual) % Band Neuts % (Manual) % Lymphocytes % (Manual) % Monocytes % (Manual) % Eosinophils % (Manual) % Neutrophils # (Manual) (1.3-7.7) k/uL Lymphocytes # (Manual) (1.0-4.8) k/uL Monocytes # (Manual) (0-1.0) k/uL Eosinophils # (Manual) (0-0.7) k/uL Nucleated RBCs (0-0) /100 WBC Manual Slide Review APTT (22.0-30.0) sec Sodium 137 (137-145) mmol/L Potassium 4.1 (3.5-5.1) mmol/L Chloride 105 (98-107) mmol/L Carbon Dioxide 22 (22-30) mmol/L Anion Gap 10 mmol/L BUN 17 (9-20) mg/dL Creatinine 0.95 (0.66-1.25) mg/dL Est GFR (CKD-EPI)AfAm >90 (>60 ml/min/1.73 sqM) Est GFR (CKD-EPI)NonAf 79 (>60 ml/min/1.73 sqM) Glucose 99 (74-99) mg/dL Calcium 9.2 (8.4-10.2) mg/dL Total Bilirubin 0.5 (0.2-1.3) mg/dL AST 23 (17-59) U/L ALT 11 (4-49) U/L Alkaline Phosphatase 63 (38-126) U/L Troponin I <0.012 (0.000-0.034) ng/mL Total Protein 7.5 (6.3-8.2) g/dL Albumin 4.1 (3.5-5.0) g/dL Stool Occult Blood (Negative) Blood Type A Negative Blood Type Confirm Blood Type Recheck No Previous Record Bld Type Recheck Status CABO Indicated Antibody Screen NEGATIVE Spec Expiration Date 09/26/2021232409/23/21 Range/Units 18:50 WBC (3.8-10.6) k/uL RBC (4.30-5.90) m/uL Hgb (13.0-17.5) gm/dL Hct (39.0-53.0) % MCV (80.0-100.0) fL MCH (25.0-35.0) pg MCHC (31.0-37.0) g/dL RDW (11.5-15.5) % Plt Count (150-450) k/uL MPV Neutrophils % (Manual) % Band Neuts % (Manual) % Lymphocytes % (Manual) % Monocytes % (Manual) % Eosinophils % (Manual) % Neutrophils # (Manual) (1.3-7.7) k/uL Lymphocytes # (Manual) (1.0-4.8) k/uL Monocytes # (Manual) (0-1.0) k/uL Eosinophils # (Manual) (0-0.7) k/uL Nucleated RBCs (0-0) /100 WBC Manual Slide Review APTT (22.0-30.0) sec Sodium (137-145) mmol/L Potassium (3.5-5.1) mmol/L Chloride (98-107) mmol/L Carbon Dioxide (22-30) mmol/L Anion Gap mmol/L BUN (9-20) mg/dL Creatinine (0.66-1.25) mg/dL Est GFR (CKD-EPI)AfAm (>60 ml/min/1.73 sqM) Est GFR (CKD-EPI)NonAf (>60 ml/min/1.73 sqM) Glucose (74-99) mg/dL Calcium (8.4-10.2) mg/dL Total Bilirubin (0.2-1.3) mg/dL AST (17-59) U/L ALT (4-49) U/L Alkaline Phosphatase (38-126) U/L Troponin I (0.000-0.034) ng/mL Total Protein (6.3-8.2) g/dL Albumin (3.5-5.0) g/dL Stool Occult Blood Positive (Negative) Blood Type Blood Type Confirm Blood Type Recheck Bld Type Recheck Status Antibody Screen Spec Expiration Date Disposition Clinical Impression: Acute gastrointestinal bleeding Disposition: ADMITTED IP TO THIS [facility] Condition: Stable Decision to Admit Reason: Admit from EC Decision Time: 17:32
[2021-09-23 18:33] LABS: HCT 41.6 % (39.0-53.0); HGB 13.3 gm/dL (13.0-17.5); MCH 30.1 pg (25.0-35.0); MCV 93.8 fL (80.0-100.0); Mean Platelet Volume 7.4; Platelet Count 162 k/uL (150-450); RBC 4.44 m/uL (4.30-5.90); RDW 13.9 % (11.5-15.5); WBC 4.4 k/uL (3.8-10.6)
[2021-09-23 18:43] LABS: ALT 11 U/L (4-49); AST 23 U/L (17-59); African American GFR (CKD) >90 (>60 ml/min/1.73 sqM); Albumin 4.1 g/dL (3.5-5.0); Alkaline Phosphatase 63 U/L (38-126); Anion Gap 10 mmol/L; Blood Urea Nitrogen 17 mg/dL (9-20); Calcium 9.2 mg/dL (8.4-10.2); Carbon Dioxide 22 mmol/L (22-30); Chloride 105 mmol/L (98-107); Glucose 99 mg/dL (74-99); Non-African American GFR(CKD) 79 (>60 ml/min/1.73 sqM); Potassium 4.1 mmol/L (3.5-5.1); Sodium 137 mmol/L (137-145); Total Bilirubin 0.5 mg/dL (0.2-1.3); Total Protein 7.5 g/dL (6.3-8.2)
[2021-09-23 18:56] LABS: Band Neutrophils % 10 %; Eosinophils # (M) 0.04 k/uL (0-0.7); Monocytes # (M) 0.31 k/uL (0-1.0); Neutrophils % (M) 41 %; Nucleated Red Blood Cells 0 /100 WBC (0-0); Total Cells Counted 100
--- NOTE | 2021-09-23 19:54 | XR ---
EXAMINATION TYPE: XR abdomen 2V DATE OF EXAM: 09/23/2021 COMPARISON: NONE HISTORY: Abdominal pain TECHNIQUE: 3 views FINDINGS: Supine and upright views were obtained. No sign of intestinal obstruction or pneumoperitone um. Fecal pattern is normal. No evidence of a mass. There are no pathologic calcifications over the k idneys. Lung bases are clear. IMPRESSION: Nonacute abdomen.
[2021-09-23] MEDS ORDERED: ONDANSETRON 4 MG/2 ML VIAL IVP PRN (20:33)
[2021-09-23] MEDS ORDERED: ACETAMINOPHEN TAB 325 MG TAB PO PRN (20:33)
[2021-09-23] MEDS ORDERED: NALOXONE 0.4 MG/ML 1 ML VIAL IV PRN (20:33)
[2021-09-23 21:19] LABS: Glucose,Whole Blood 111 mg/dL (75-99)
[2021-09-23] MEDS: INSULIN ASPART (NovoLOG) 100 UNIT/ML VIAL SQ SCH (21:20)
[2021-09-23] MEDS: SODIUM CHLORIDE 0.9% 1,000 ML IV SCH (22:39)
[2021-09-24 00:09] LABS: HCT 38.3 % (39.0-53.0); HGB 12.2 gm/dL (13.0-17.5); MCH 29.5 pg (25.0-35.0); MCHC 31.9 g/dL (31.0-37.0); MCV 92.6 fL (80.0-100.0); Mean Platelet Volume 7.2; Platelet Count 158 k/uL (150-450); RBC 4.14 m/uL (4.30-5.90); WBC 3.8 k/uL (3.8-10.6)
[2021-09-24 02:13] LABS: Glucose,Whole Blood 99 mg/dL (75-99)
[2021-09-24 06:53] LABS: Glucose,Whole Blood 86 mg/dL (75-99)
[2021-09-24] MEDS: INSULIN ASPART (NovoLOG) 100 UNIT/ML VIAL SQ SCH ×4 (08:27→20:34)
[2021-09-24] MEDS: SODIUM CHLORIDE 0.9% 1,000 ML IV SCH (08:35)
[2021-09-24 09:45] LABS: HCT 38.4 % (39.6-50.0); HGB 12.4 g/dL (13.0-17.0); MCH 29.5 pg (27.0-32.0); MCHC 32.3 g/dL (32.0-37.0); MCV 91.2 fL (80.0-97.0); Mean Platelet Volume 10.5 fL (9.5-12.2); NRBC Per 100 WBC 0 /100 WBCS (0.0-0.0); Platelet Count 169 X 10*3/uL (140-440); RBC 4.21 X 10*6/uL (4.40-5.60); RDW 14.1 % (11.5-14.5); WBC 4.28 X 10*3/uL (4.50-10.00)
[2021-09-24 09:47] LABS: African American GFR (CKD) 97.2 (60.0-200.0); Anion Gap 12.6 mmol/L (10.00-18.00); BUN/Creat Ratio 15.33 Ratio (12.00-20.00); Blood Urea Nitrogen 13.8 mg/dL (9.0-27.0); Calcium 9.3 mg/dL (8.7-10.3); Carbon Dioxide 21.4 mmol/L (20.0-27.5); Non-African American GFR(CKD) 83.8 (60.0-200.0); Potassium 3.7 mmol/L (3.5-5.5)
[2021-09-24] MEDS ORDERED: PEG 3350-NA SULF,BICARB,CL/KCL 4,000 ML BOTTLE PO ONE (10:00)
[2021-09-24] MEDS: PANTOPRAZOLE 40 MG/10 ML VIAL IVP SCH (10:40)
--- NOTE | 2021-09-24 11:40 | P.HPIM ---
History of Present Illness 75-year-old pleasant male came in with compensative for blood in the stools. Patient states he initially had dark stools later on patient started having blood in the stools patient was in hemoglobin is 12.4 gone down 1. compared to yesterday. Patient denied any nausea vomiting patient has some crampy abdominal pain yesterday patient had 3 bloody bowel movements as today and yesterday. Patient is undergoing workup for her for colonoscopy as well as upper GI endoscopy. Patient is a not on any blood thinners. Patient had history of peptic ulcer disease with a large ulcer which was treated with the Protonix and patient is still on Protonix and this diagnosis was January 2021. Patient denied any nausea vomiting. REVIEW OF SYSTEMS: CONSTITUTIONAL: No fever, no malaise, no fatigue. HEENT: No recent visual problems or hearing problems. Denied any sore throat. CARDIOVASCULAR: No chest pain, orthopnea, PND, no palpitations, no syncope. PULMONARY: No shortness of breath, no cough, no hemoptysis. GASTROINTESTINAL: As mentioned in HPI NEUROLOGICAL: No headaches, no weakness, no numbness. HEMATOLOGICAL: Denies any bleeding or petechiae. GENITOURINARY: Denies any burning micturition, frequency, or urgency. MUSCULOSKELETAL/RHEUMATOLOGICAL: Denies any joint pain, swelling, or any muscle pain. ENDOCRINE: Denies any polyuria or polydipsia. The rest of the 14-point review of systems is negative. PHYSICAL EXAMINATION: GENERAL: The patient is alert and oriented x3, not in any acute distress. Well developed, well nourished. HEENT: Pupils are round and equally reacting to light. EOMI. No scleral icterus. No conjunctival pallor. Normocephalic, atraumatic. No pharyngeal erythema. No thyromegaly. CARDIOVASCULAR: S1 and S2 present. No murmurs, rubs, or gallops. PULMONARY: Chest is clear to auscultation, no wheezing or crackles. ABDOMEN: Soft, nontender, nondistended, normoactive bowel sounds. No palpable organomegaly. MUSCULOSKELETAL: No joint swelling or deformity. EXTREMITIES: No cyanosis, clubbing, or pedal edema. NEUROLOGICAL: Gross neurological examination did not reveal any focal deficits. SKIN: No rashes. Assessment and plan -Acute blood loss anemia from acute GI bleed, patient appears to have upper as well as lower GI bleed although upper appears to have improved. Patient will undergo endoscopy. -COPD without any acute exacerbation -Hypertension -Gastroesophageal reflux disease and peptic ulcer disease in the past -Hypothyroidism -History of squamous cell oropharyngeal cancer which is in remission DVT prophylaxis: Early ambulation Past Medical History Past Medical History: Cancer, COPD, Diabetes Mellitus, Eye Disorder, GERD/Ref lux, Hypertension, Osteoarthritis (OA), Pneumonia, Thyroid Disorder Additional Past Medical History / Comment(s): Pt states he tested + for covid on 05/31/20 at [facility] and was hospitalized at [facility] same day. Other hx: Weakness since covid infection/falls, NIDDM type II (no longer on medication), throat CA w/ chemo and radiation (pt believes last treatment was january), skin cancer with removals, colitis, hypothyroid, R eye cataract, pain base L thumb History of Any Multi-Drug Resistant Organisms: None Reported Additional Past Surgical History / Comment(s): skin cancer removal x2, L eye cataract removed w/ lens implant, colonoscopy. Past Anesthesia/Blood Transfusion Reactions: No Reported Reaction Past Psychological History: Anxiety Additional Psychological History / Comment(s): Pt resides alone. Smoking Status: Former smoker Past Alcohol Use History: None Reported Additional Past Alcohol Use History / Comment(s): Pt started smoking in 1966 and quit 05/31/20. He was a 2 ppd smoker. Past Drug Use History: None Reported - Past Family History Father Family Medical History: Cancer Additional Family Medical History / Comment(s): Father of throat cancer. Mother Family Medical History: Cancer, Dementia, Thyroid Disorder Additional Family Medical History / Comment(s): Mother had breast cancer. Medications and Allergies Home Medications Medication Instructions Recorded Confirmed Type Levothyroxine Sodium [Synthroid] 150 mcg PO DAILY 07/04/20 09/23/21 History Pantoprazole [Protonix] 40 mg PO HS 02/03/21 09/23/21 History Sertraline [Zoloft] 75 mg PO HS 02/03/21 09/23/21 History amLODIPine [Norvasc] 5 mg PO HS 02/03/21 09/23/21 History Metoprolol Tartrate [Lopressor] 25 mg PO BID 09/23/21 09/23/21 History Allergies Allergy/AdvReac Type Severity Reaction Status Date / Time NSAIDS (Non-Steroidal AdvReac GI BLEED Verified 09/23/21 20:53 Anti-Inflamma Physical Exam Vitals: Vital Signs Temp Pulse Pulse Resp BP BP Pulse Ox 09/24/21 08:34 73 12 09/24/21 07:00 97.4 F L 73 12 114/75 94 L 09/24/21 02:06 97.4 F L 71 18 97/65 96 09/24/21 02:00 67 17 09/23/21 21:10 97.8 F 67 17 134/75 95 09/23/21 20:56 97.9 F 75 18 110/71 97 09/23/21 20:33 75 18 110/71 97 09/23/21 18:08 88 18 106/70 96 09/23/21 15:06 97.9 F 91 16 104/69 95 Intake and Output 09/23/21 09/24/21 09/24/21 22:59 06:59 14:59 Intake Total 0 Output Total 1 Balance 0 -1 Intake: Oral 0 Output: Urine 1 Other: Voiding Method Toilet Toilet # Voids 1 1 1 # Bowel Movements 1 1 1 Weight 74.843 kg Results CBC & Chem 7: 09/24/21 06:29 09/24/21 06:29 Labs: Abnormal Lab Results - Last 24 Hours (Table) 09/23/21 09/23/21 09/24/21 Range/Units 21:17 23:48 06:29 WBC 4.28 L (4.50-10.00) X 10*3/uL RBC 4.14 L 4.21 L (4.30-5.90) m/uL Hgb 12.2 L 12.4 L (13.0-17.5) gm/dL Hct 38.3 L 38.4 L (39.0-53.0) % POC Glucose (mg/dL) 111 H (75-99) mg/dL Thrombosis Risk Factor Assmnt - Choose All That Apply Any of the Below Risk Factors Present?: Yes Each Factor Represents 1 point: Abnormal pulmonary function (COPD) Other Risk Factors: Yes Each Risk Factor Represents 2 Points: Age 61-74 years Other congenital or acquired thrombophilia - If yes, enter type in comment: No Thrombosis Risk Factor Assessment Total Risk Factor Score: 3 Thrombosis Risk Factor Assessment Level: Moderate Risk
[2021-09-24 11:44] LABS: HCT 42.6 % (39.0-53.0); HGB 13.4 gm/dL (13.0-17.5); MCH 29.6 pg (25.0-35.0); MCHC 31.5 g/dL (31.0-37.0); Mean Platelet Volume 7.7; Platelet Count 185 k/uL (150-450); RBC 4.53 m/uL (4.30-5.90); WBC 4.3 k/uL (3.8-10.6)
[2021-09-24 12:08] LABS: Glucose,Whole Blood 80 mg/dL (75-99)
--- NOTE | 2021-09-24 13:14 | P.GSCN ---
History of Present Illness Consult date: 09/24/21 History of present illness: CHIEF COMPLAINT: GI bleed HISTORY OF PRESENT ILLNESS: This is a 75-year-old male who presented to the hospital with complaints of GI bleed. He reports that he has been having black stools for about 5 days. And then 2 days ago the stools became red in color. He now reports that he'll initially have 2 bowel movements that have read and th en by the end of the day the bowel movements are completely brown. He does report some diffuse abdominal cramping. He does have a prior history of peptic ulcer disease in November 2020 and had been on treatment with Protonix. He does have a history of throat cancer and underwent chemoradiation treatment. Last colonoscopy was last year in which she reports was normal. Hemoglobin on admission was 13 is now at 12.2. Stool for occult blood was positive. Surgical service consulted for GI bleed. Patient denies any blood thinners or NSAID use. PAST MEDICAL HISTORY: History of oropharyngeal cancer, COPD, Diabetes Mellitus, Eye Disorder, GERD/Reflux, Hypertension, Osteoarthritis (OA), Pneumonia, Thyroid Disorder PAST SURGICAL HISTORY: See list. MEDICATIONS: See list. ALLERGIES: See list. SOCIAL HISTORY: No illicit drug use. REVIEW OF SYSTEMS: CONSTITUTIONAL: Denies fever or chills. HEENT: Denies blurred vision, vision changes, or eye pain. Denies hemoptysis CARDIOVASCULAR: Denies chest pain or pressure. RESPIRATORY: No shortness of breath. GASTROINTESTINAL: See HPI for pertinent findings HEMATOLOGIC: Denies bleeding disorders. GENITOURINARY: Denies any blood in urine or increased urinary frequency. SKIN: Denies pruitis. Denies rash. PHYSICAL EXAM: VITAL SIGNS: Reviewed GENERAL: Well-developed in no acute distress. HEENT: No sclera icterus. Extraocular movements grossly intact. Moist buccal mucosa. Head is atraumatic, normocephalic. No nasal drainage. ABDOMEN: Soft. Nondistended. Nontender NEUROLOGIC: Alert and oriented. Cranial nerves II through XII grossly intact. LABORATORY DATA: WBC 4.3 hemoglobin 13.3, 12.2, 12.4, 13.4 platelets 185 Sodium 140 potassium 3.7 creatinine 0.9 Stool for occult blood positive IMAGING: Abdominal x-ray nonacute abdomen ASSESSMENT: 1. Acute GI bleed with black stools and bright red blood 2. History of peptic ulcer disease PLAN: -Patient scheduled for EGD and colonoscopy tomorrow -Start GoLYTELY prep -Okay for clear liquids today -Nothing by mouth after midnight -Continue PPI Physician Bone Cooking Operator note has been reviewed by physician. Signing provider agrees with the documented findings, assessment, and plan of care. Past Medical History Past Medical History: Cancer, COPD, Diabetes Mellitus, Eye Disorder, GERD/Reflux, Hypertension, Osteoarthritis (OA), Pneumonia, Thyroid Disorder Additional Past Medical History / Comment(s): Pt states he tested + for covid on 05/31/20 at [facility] and was hospitalized at [facility] same day. Other hx: We akness since covid infection/falls, NIDDM type II (no longer on medication), throat CA w/ chemo and radiation (pt believes last treatment was january), skin cancer with removals, colitis, hypothyroid, R eye cataract, pain base L thumb History of Any Multi-Drug Resistant Organisms: None Reported Additional Past Surgical History / Comment(s): skin cancer removal x2, L eye cataract removed w/ lens implant, colonoscopy. Past Anesthesia/Blood Transfusion Reactions: No Reported Reaction Past Psychological History: Anxiety Additional Psychological History / Comment(s): Pt resides alone. Smoking Status: Former smoker Past Alcohol Use History: None Reported Additional Past Alcohol Use History / Comment(s): Pt started smoking in 1966 and quit 05/31/20. He was a 2 ppd smoker. Past Drug Use History: None Reported - Past Family History Father Family Medical History: Cancer Additional Family Medical History / Comment(s): Father of throat cancer. Mother Family Medical History: Cancer, Dementia, Thyroid Disorder Additional Family Medical History / Comment(s): Mother had breast cancer. Medications and Allergies Home Medications Medication Instructions Recorded Confirmed Type Levothyroxine Sodium [Synthroid] 150 mcg PO DAILY 07/04/20 09/23/21 History Pantoprazole [Protonix] 40 mg PO HS 02/03/21 09/23/21 History Sertraline [Zoloft] 75 mg PO HS 02/03/21 09/23/21 History amLODIPine [Norvasc] 5 mg PO HS 02/03/21 09/23/21 History Metoprolol Tartrate [Lopressor] 25 mg PO BID 09/23/21 09/23/21 History Allergies Allergy/AdvReac Type Severity Reaction Status Date / Time NSAIDS (Non-Steroidal AdvReac GI BLEED Verified 09/23/21 20:53 Anti-Inflamma Surgical - Exam Vital Signs Temp Pulse Resp BP Pulse Ox 97.9 F 91 16 104/69 95 09/23/21 15:06 09/23/21 15:06 09/23/21 15:06 09/23/21 15:06 09/23/21 15:06 Results - Labs 09/24/21 11:23 09/24/21 06:29 Abnormal Lab Results - Last 24 Hours (Table) 09/23/21 09/23/21 Range/Units 21:17 23:48 RBC 4.14 L (4.30-5.90) m/uL Hgb 12.2 L (13.0-17.5) gm/dL Hct 38.3 L (39.0-53.0) % POC Glucose (mg/dL) 111 H (75-99) mg/dL Diabetes panel 09/23/21 Range/Units 18:25 Sodium 137 (137-145) mmol/L Potassium 4.1 (3.5-5.1) mmol/L Chloride 105 (98-107) mmol/L Carbon Dioxide 22 (22-30) mmol/L BUN 17 (9-20) mg/dL Creatinine 0.95 (0.66-1.25) mg/dL Glucose 99 (74-99) mg/dL Calcium 9.2 (8.4-10.2) mg/dL AST 23 (17-59) U/L ALT 11 (4-49) U/L Alkaline Phosphatase 63 (38-126) U/L Total Protein 7.5 (6.3-8.2) g/dL Albumin 4.1 (3.5-5.0) g/dL Calcium panel 09/23/21 Range/Units 18:25 Calcium 9.2 (8.4-10.2) mg/dL Albumin 4.1 (3.5-5.0) g/dL Pituitary panel 09/23/21 Range/Units 18:25 Sodium 137 (137-145) mmol/L Potassium 4.1 (3.5-5.1) mmol/L Chloride 105 (98-107) mmol/L Carbon Dioxide 22 (22-30) mmol/L BUN 17 (9-20) mg/dL Creatinine 0.95 (0.66-1.25) mg/dL Glucose 99 (74-99) mg/dL Calcium 9.2 (8.4-10.2) mg/dL Adrenal panel 09/23/21 Range/Units 18:25 Sodium 137 (137-145) mmol/L Potassium 4.1 (3.5-5.1) mmol/L Chloride 105 (98-107) mmol/L Carbon Dioxide 22 (22-30) mmol/L BUN 17 (9-20) mg/dL Creatinine 0.95 (0.66-1.25) mg/dL Glucose 99 (74-99) mg/dL Calcium 9.2 (8.4-10.2) mg/dL Total Bilirubin 0.5 (0.2-1.3) mg/dL AST 23 (17-59) U/L ALT 11 (4-49) U/L Alkaline Phosphatase 63 (38-126) U/L Total Protein 7.5 (6.3-8.2) g/dL Albumin 4.1 (3.5-5.0) g/dL
[2021-09-24 16:37] LABS: Glucose,Whole Blood 77 mg/dL (75-99)
[2021-09-24 19:23] LABS: Glucose,Whole Blood 73 mg/dL (75-99)
[2021-09-24] MEDS: DEXTROSE 5%-0.9% NACL 1,000 ML IV SCH (20:34)
[2021-09-24] MEDS: METOPROLOL TARTRATE 25 MG TAB PO SCH (20:35)
[2021-09-24] MEDS ORDERED: SERTRALINE 25 MG TAB PO SCH (21:00)
[2021-09-24 22:22] LABS: Glucose,Whole Blood 103 mg/dL (75-99)
[2021-09-25 01:49] LABS: Glucose,Whole Blood 120 mg/dL (75-99)
[2021-09-25 06:23] LABS: HCT 37.6 % (39.0-53.0); HGB 12.2 gm/dL (13.0-17.5); MCH 30.2 pg (25.0-35.0); MCHC 32.4 g/dL (31.0-37.0); Mean Platelet Volume 7.6; Platelet Count 173 k/uL (150-450); RBC 4.04 m/uL (4.30-5.90); RDW 13.8 % (11.5-15.5); WBC 3.4 k/uL (3.8-10.6)
[2021-09-25] MEDS ORDERED: LEVOTHYROXINE 75 MCG TAB PO SCH (06:30)
[2021-09-25 06:38] LABS: African American GFR (CKD) >90 (>60 ml/min/1.73 sqM); Anion Gap 5 mmol/L; Blood Urea Nitrogen 11 mg/dL (9-20); Calcium 8.6 mg/dL (8.4-10.2); Carbon Dioxide 26 mmol/L (22-30); Chloride 107 mmol/L (98-107); Glucose 129 mg/dL (74-99); Non-African American GFR(CKD) 87 (>60 ml/min/1.73 sqM); Potassium 3.4 mmol/L (3.5-5.1); Sodium 138 mmol/L (137-145)
[2021-09-25] MEDS: PANTOPRAZOLE 40 MG/10 ML VIAL IVP SCH (07:40)
[2021-09-25] MEDS: DEXTROSE 5%-0.9% NACL 1,000 ML IV SCH (07:41)
[2021-09-25] MEDS: METOPROLOL TARTRATE 25 MG TAB PO SCH (07:41)
[2021-09-25] MEDS: INSULIN ASPART (NovoLOG) 100 UNIT/ML VIAL SQ SCH ×2 (07:42→12:28)
[2021-09-25] MEDS ORDERED: POTASSIUM CHLORIDE ER 20 MEQ TAB.ER PO STA ×2 (07:44→09:40)
[2021-09-25] MEDS ORDERED: LIDOCAINE 2% INJ 20 MG/ML (2 ML VIAL) ONE (11:05)
[2021-09-25] MEDS ORDERED: PROPOFOL 10 MG/ML 20 ML VIAL IV ONE (11:05)
[2021-09-25] MEDS ORDERED: IV FLUID CONTINUATION 1,000 ML IV ONE (11:06)
--- NOTE | 2021-09-25 11:44 | P.OP ---
Date of Procedure: 09/25/21 Preoperative Diagnosis: GI bleed Postoperative Diagnosis: Antral gastritis Hiatal hernia Colonic inflammation left colon Diverticulosis Procedure(s) Performed: Colonoscopy Anesthesia: MAC Surgeon: Noe Jean Baptiste Pathology: other (Antrum,:colon) Condition: stable Disposition: PACU Description of Procedure: The patient's placed on the endoscopy table in the lateral position. He received IV sedation. The gastroscope placed oropharynx passed in the esophagus into the stomach. Scope was then placed through the pylorus. The first and second portion of the duodenum appeared normal. The scope was then brought back the antrum was mildly inflamed. A biopsies performed. The scope was then retroflexed and the remainder the stomach appeared normal. There was a moderate size hiatal hernia. The GE junction was at 38 cm. The distal esophagus appeared minimally inflamed. The proximal esophagus appeared normal. Scope withdrawn for patient. Next digital rectal exam was performed which revealed a few external hemorrhoids. Flexible colonoscope was then placed patient anus and passed throughout the entire colon. The ileocecal valve was visualized. The cecum, ascending and transverse colon appeared normal. In the descendingcolon there were some diverticula seen. At approximately the 35 cm gay there is some inflammatory change; this area is biopsied. The scope was then brought back and sigmoid colon there is diverticular changes. In the rectum was normal. Scope withdrawn for patient. There is no unsteady active GI bleed. His presumed patient may have bleeding from hemorrhoids, diverticulum. The colon inflamed or change his pathology pending..
[2021-09-25 12:15] LABS: Glucose,Whole Blood 156 mg/dL (75-99)
--- NOTE | 2021-09-25 13:41 | P.DS ---
Providers Date of admission: 09/23/21 20:33 Attending physician: Tomas Francis Consults: 09/23/21 20:33 Consult Physician Stat Consulting Provider: Noe Jean Baptiste Consult Reason/Comments: Gastrointestinal bleeding Do you want consulting provider notified?: Already Contacted Primary care physician: [facility] Course: Final Diagnosis Acute blood loss anemia secondary to possible bleeding from diverticulum or hemorrhoids as found on colonoscopy Antral gastritis, colonic inflammation left colon found on colonoscopy status post biopsy Diverticulosis found on colonoscopy Hiatal hernia found on colonoscopy COPD without any acute exacerbation Hypertension Diabetes Mellitus type II, diet controlled Gastroesophageal reflux disease Hypothyroidism History of squamos cell oropharyngeal cancer which is in remission Former nicotine use Full Code Discharge Disposition Patient stable for discharge home. Will need to repeat CBC in 2 days to monitor hemoglobin and follow up with primary are. Biopsies taken of antrum and descending left colon which patient will follow up with surgical services in the office for biopsy results. No unsteady active GI Bleed found on EGD/Colonoscopy performed on 09/25/2021. Hospital Course This is a pleasant 75 year old male who presents to [facility] with complaints of black stool from the rectum x 5 days. Patient does have a history of colitis with previous colonoscopy. Additional history includes COPD, Diabetes diet controlled, GERD, hypertension, hypothyroid, squamos cell ooropharyngeal cancer with subsequent chemo and radiation. Hemoglobin on admission was 13.3, dropped to 12.2 which has remained stable. Tropnin negative, Occult stool positive. Abdominal xray on admission showing a nonacute abdomen. Patient was evaluated in consult by surgical services who proceeded with EGD / Colonoscopy on 09/25/2021. Postoperative diagnosis includes antral gastritis, diverticulosis, colonic inflammation /change in the descending colon, hiatal her gail, and external hemorrhoids. Biopsies were taken of the antral and colonic inflammation sites. There was no unsteady active GI bleed found. Patient was cleared by GI services. Patient did mention that during his initial bowel prep he had brown stool, and the morning of 09/25/2021 there was some liquid bright red susbtance in the toilet but states it was pretty much water. Was not a large quantity. Patient was placed on clear liquid diet initially and did have some issues with hypoglycemia with blood sugar in the 70s, blood pressure was in the 90's systolic. Patient was initially receiving IV fluids with normal saline but was then changed to D5 and blood sugars stabilized. Postoperatively patient was taken off the D5 infusion and has tolerated regular diet for lunch. Blood sugars are now in the 120s. Blood pressure has also improved to 127/71, he has remained afebrile, heart rate in the 60s, 98% oxygenation on room air. 09/25/2021 Patient evaluated today resting in bed. Completed bowel prep and awaiting EGD/Colonoscopy. Results as reported above and he has been since cleared by surgical services. Will repeat a CBC in 2 days to monitor hemoglobin. Patients potassium was on the low side at 3.4 today most likely from the bowel prep completed throughout the evening. He received oral supplementation. There is no signs of active bleeding and hemoglobin today was again 12.2 which has remained stable. Denies chest pain, denies shortness of breath. Denies abdominal pain. Denies nausea, vomiting. PT/OT evaluation was completed and patient is safe for discharge home with home care services. Protonix will be increased to 40 mg po daily for 2 weeks and patient can resume 40 mg po daily of protonix. Educated on diet to avoid gastric irritation. He will need to follow up with surgical services in the office next week. Tolerating diet. Lungs are clear, S1 S2 auscultated, abdomen soft nontender normoactive bowel sounds, focal neurological exam is negative. Please see medication reconciliation for a list of current medication. Thank you for allowing us to participate in the care of this patient. The impression and plan of care has been dictated by Sammie Banuelos, Nurse Practitioner as directed. Dr. Beni MD I have performed a history and physical examination and medical decision making of this patient, discussed the same with the dictator, and agree with the dictators assessment and plan as written, documented as a scribe. Based on total visit time, I have performed more than 50% of this visit. Patient Condition at Discharge: Stable Plan - Discharge Summary New Discharge Prescriptions: New Pantoprazole [Protonix] 40 mg PO BID 30 Days #44 tab Continue Levothyroxine Sodium [Synthroid] 150 mcg PO DAILY Sertraline [Zoloft] 75 mg PO HS amLODIPine [Norvasc] 5 mg PO HS Metoprolol Tartrate [Lopressor] 25 mg PO BID Discontinued Pantoprazole [Protonix] 40 mg PO HS Discharge Medication List Levothyroxine Sodium [Synthroid] 150 mcg PO DAILY 07/04/20 [History] Sertraline [Zoloft] 75 mg PO HS 02/03/21 [History] amLODIPine [Norvasc] 5 mg PO HS 02/03/21 [History] Metoprolol Tartrate [Lopressor] 25 mg PO BID 09/23/21 [History] Pantoprazole [Protonix] 40 mg PO BID 30 Days #44 tab 09/25/21 [Rx] Follow up Appointment(s)/Referral(s): Jus Kiran,Home Care [NON-STAFF] - 1-2 Days Gene Noble III, MD [Primary Care Provider] - 1-2 days Noe Jean Baptiste MD [STAFF PHYSICIAN] - 1 Week Ambulatory/Diagnostic Orders: Complete Blood Count w/diff [LAB.AMB] Time Frame: 2 Days, Location: None Selected Patient Instructions/Handouts: Gastritis (DC) Activity/Diet/Wound Care/Special Instructions: Increase diet as tolerated, avoid foods that cause gastric irritation including acidic foods such as tomato, caffeine (coffee, tea). Increase protonix to 40 mg PO BID for 14 days, than resume 40 mg PO daily dose. Follow up with surgical services for biopsy results. Monitor for signs of acute rectal bleeding, black, maroon, or amada red blood. Repeat blood count in 2 days and follow up with primary care provider in the next 2-3 days.
[2021-09-25 14:43] VITALS: BP 126/70; PULSE 50; RESP 16; TEMP 97.4
[2021-09-26 05:20] LABS: Glucose,Whole Blood 137 mg/dL (75-99)
== END 2021-09-25 15:52 | disposition home health service (06) ==
LOC: EC 14:52 → 6NMEDSUR 20:33
PROVIDERS: ADMIT Hospitalist; ATTEND Hospitalist
DX: K52.9 Noninfective gastroenteritis and colitis, unspecified (principal); D62 Acute posthemorrhagic anemia; K57.30 Diverticulosis of large intestine without perforation or abscess without bleeding; K44.9 Diaphragmatic hernia without obstruction or gangrene; K21.9 Gastro-esophageal reflux disease without esophagitis; K64.4 Residual hemorrhoidal skin tags; K29.70 Gastritis, unspecified, without bleeding; K92.2 Gastrointestinal hemorrhage, unspecified; E03.9 Hypothyroidism, unspecified; J44.9 Chronic obstructive pulmonary disease, unspecified; E11.649 Type 2 diabetes mellitus with hypoglycemia without coma; H57.9 Unspecified disorder of eye and adnexa; F41.9 Anxiety disorder, unspecified; I10 Essential (primary) hypertension; M19.90 Unspecified osteoarthritis, unspecified site; Z87.891 Personal history of nicotine dependence; Z87.01 Personal history of pneumonia (recurrent); Z86.16 Personal history of COVID-19; Z87.11 Personal history of peptic ulcer disease; Z85.818 Personal history of malignant neoplasm of other sites of lip, oral cavity, and pharynx; Z92.21 Personal history of antineoplastic chemotherapy; Z92.3 Personal history of irradiation; Z85.828 Personal history of other malignant neoplasm of skin; Z98.41 Cataract extraction status, right eye; Z96.1 Presence of intraocular lens; Z80.3 Family history of malignant neoplasm of breast; Z80.0 Family history of malignant neoplasm of digestive organs; Z79.890 Hormone replacement therapy; Z79.4 Long term (current) use of insulin; Z79.899 Other long term (current) drug therapy; Z88.6 Allergy status to analgesic agent
CPT/HCPCS: 96376 ×2; 96361 ×3; 96374; 99285; 36415; 94760; 93005; 97162; 97166; 86900; 86901; 88305; 80053; 80048 ×2; 84132; 84484; 85025; 85027 ×3; 85730; 86850; 82272; 74019; 45380; 43239; G0378 ×4; J2704; C9113 ×3; J2001; 45378

== ENCOUNTER → 2021-10-16 | Outpatient (CLI) | payer MEDICARE, BC ==
[2021-10-16 13:15] LABS: African American GFR (CKD) >90 (>60 ml/min/1.73 sqM); Blood Urea Nitrogen 20 mg/dL (9-20); Non-African American GFR(CKD) 83 (>60 ml/min/1.73 sqM)
--- NOTE | 2021-10-16 21:26 | CT ---
EXAMINATION TYPE: CT abdomen pelvis w con DATE OF EXAM: 10/16/2021 COMPARISON: No previous CT scan is available for comparison HISTORY: diverticulosis CT DLP: 775 mGycm Automated exposure control for dose reduction was used. TECHNIQUE: Helical acquisition of images was performed from the lung bases through the pelvis. CONTRAST: Performed with Oral Contrast and with IV Contrast, patient injected with 70 mL of Isovue 300. FINDINGS: LUNG BASES: Bilateral basal peripheral pulmonary reticulations and reticulonodular infiltrates more o n the right side, possibly inflammatory/infectious in etiology, please correlate clinically. Marked b ilateral gynecomastia changes. LIVER/GB: No significant abnormality is appreciated. PANCREAS: No significant abnormality is seen. SPLEEN: No significant abnormality is seen. ADRENALS: No significant abnormality is seen. KIDNEYS: Grossly unremarkable kidneys. FREE AIR: No free air is visualized. RETROPERITONEAL ADENOPATHY: None visualized REPRODUCTIVE ORGANS: Slightly enlarged prostate. Unremarkable seminal vesicles. URINARY BLADDER: Incompletely distended. PELVIC ADENOPATHY: No pathologically enlarged lymph nodes. OSSEOUS STRUCTURES: Scattered tiny sclerotic foci in the pelvic bones, likely representing bone jade nds. No gross aggressive bone lesion. Anterior wedging of T12 vertebral body, likely chronic. Osteope gail. Questionable subtle avascular necrosis of the femoral heads. BOWEL: Unremarkable stomach, duodenum and small bowel. Significant fecal loading of the colon. Sever e diverticulosis involving the sigmoid colon without evidence of acute diverticulitis. Mild wall thic kening of the sigmoid colon. Recommend correlation with colonoscopy results. OTHER: Arterial atherosclerotic calcification. Infrarenal abdominal aortic ectasia measuring up to 2. 4 cm. No sizable ascites. Small left fat-containing inguinal hernia. Small fat-containing umbilical h ernia. IMPRESSION: Severe diverticulosis of the sigmoid colon with wall thickening as described above. Recommend correla tion with colonoscopy results. No evidence for active diverticulitis. Suspected constipation with sig nificant fecal loading of the colon. Other incidental findings as described above.
== END | disposition home or self-care (01) ==
LOC: RADCTMAIN 12:14
PROVIDERS: ATTEND Surgery
DX: K57.30 Diverticulosis of large intestine without perforation or abscess without bleeding (principal); K42.9 Umbilical hernia without obstruction or gangrene
CPT/HCPCS: 82565; 84520; 74177; 36415; Q9967

== ENCOUNTER 2022-07-26 17:40 | Emergency (ER) | payer MEDICARE, BC ==
--- NOTE | 2022-07-26 21:14 | XR ---
EXAMINATION TYPE: XR KUB DATE OF EXAM: 07/26/2022 COMPARISON: 09/23/2021 HISTORY: Pain TECHNIQUE: 2 views upright FINDINGS: There is no sign of intestinal obstruction or pneumoperitoneum. Fecal pattern is normal. Marisel ng bases are clear. No pathologic calcification. IMPRESSION: Nonacute abdomen. No change.
--- NOTE | 2022-07-26 23:08 | ED ---
General Adult HPI - General Chief complaint: Nausea/Vomiting/Diarrhea Stated complaint: Constipation Time Seen by Provider: 07/26/22 20:36 Source: patient Mode of arrival: wheelchair Limitations: no limitations - History of Present Illness Initial comments: Patient is a 76-year-old male presenting with chief complaint of constipation. Patient reports that about a week ago he received chemo for lung cancer, states that since then he has not been able to have a bowel movement. He did try taking a stool softener. Patient states that there was a day where he had a small amount of liquid stool, he then took some [id number] Imodium. He denies any abdominal pain or bloating. No chest pain or difficulty breathing. No numbness, tingling, weakness. No fevers or chills. No dysuria or hematuria. - Related Data Home Medications Medication Instructions Recorded Confirmed Levothyroxine Sodium [Synthroid] 150 mcg PO DAILY 07/04/20 09/23/21 Sertraline [Zoloft] 75 mg PO HS 02/03/21 09/23/21 amLODIPine [Norvasc] 5 mg PO HS 02/03/21 09/23/21 Metoprolol Tartrate [Lopressor] 25 mg PO BID 09/23/21 09/23/21 Previous Rx's Medication Instructions Recorded Pantoprazole [Protonix] 40 mg PO BID 30 Days #44 tab 09/25/21 Allergies Allergy/AdvReac Type Severity Reaction Status Date / Time NSAIDS (Non-Steroidal AdvReac GI BLEED Verified 07/26/22 18:27 Anti-Inflamma Review of Systems ROS Statement: Those systems with pertinent positive or pertinent negative responses have been documented in the HPI. ROS Other: All systems not noted in ROS Statement are negative. Past Medical History Past Medical History: Cancer, COPD, Diabetes Mellitus, Eye Disorder, GERD/Reflux, Hypertension, Osteoarthritis (OA), Pneumonia, Thyroid Disorder Additional Past Medical History / Comment(s): Pt states he tested + for covid on 05/31/20 at [email or web address] and was hospitalized at [facility] same day. Other hx: Weakness since covid infection/falls, NIDDM type II (no longer on medication), throat CA w/ chemo and radiation (pt believes last treatment was january), skin cancer with removals, colitis, hypothyroid, R eye cataract, pain base L thumb. lung cancer History of Any Multi-Drug Resistant Organisms: None Reported Additional Past Surgical History / Comment(s): skin cancer removal x2, L eye cataract removed w/ lens implant, colonoscopy. Past Anesthesia/Blood Transfusion Reactions: No Reported Reaction Past Psychological History: Anxiety Smoking Status: Former smoker Past Alcohol Use History: None Reported Past Drug Use History: None Reported - Past Family History Father Family Medical History: Cancer Additional Family Medical History / Comment(s): Father of throat cancer. Mother Family Medical History: Cancer, Dementia, Thyroid Disorder Additional Family Medical History / Comment(s): Mother had breast cancer. General Exam Limitations: no limitations General appearance: alert, in no apparent distress Head exam: Present: atraumatic, normocephalic, normal inspection Eye exam: Present: normal appearance Neck exam: Present: normal inspection, full ROM Respiratory exam: Present: normal lung sounds bilaterally. Absent: respiratory distress, wheezes, rales, rhonchi, stridor Cardiovascular Exam: Present: regular rate, normal rhythm, normal heart sounds. Absent: systolic murmur, diastolic murmur, rubs, gallop, clicks GI/Abdominal exam: Present: soft. Absent: distended, tenderness, guarding, rebound, rigid Neurological exam: Present: alert, oriented X3, CN II-XII intact Psychiatric exam: Present: normal affect, normal mood Skin exam: Present: warm, dry, intact, normal color. Absent: rash Course Vital Signs 07/26/22 07/26/22 07/26/22 18:25 19:23 23:15 Temperature 98.1 F 98.2 F Pulse Rate 91 71 70 Respiratory 20 18 16 Rate Blood Pressure 110/65 112/71 115/68 O2 Sat by Pulse 95 96 98 Oximetry Medical Decision Making - Medical Decision Making Was pt. sent in by a medical professional or institution (, PA, BEHAVIORAL HEALTH RN, urgent care, hospital, or fci...) When possible be specific @ -No Did you speak to anyone other than the patient for history (EMS, parent, family, police, friend...)? What history was obtained from this source @ -No Did you review nursing and triage notes (agree or disagree)? Why? @ -I reviewed the triage notes and disagree, patient is complaining of constipation, states that one point he had a very small amount of liquid stool but otherwise has not been able to have a bowel movement for the last week. Admits to small to nausea with no vomiting Were old charts reviewed (outside hosp., previous admission, EMS record, old EKG, old radiological studies, urgent care reports/EKG's, fci records)? Report findings @ -No old charts were reviewed Differential Diagnosis (chest pain, altered mental status, abdominal pain women, abdominal pain men, vaginal bleeding, weakness, fever, dyspnea, syncope, headache, dizziness, GI bleed, back pain, seizure, CVA, palpatations, mental health, musculoskeletal)? @ -Differential includes constipation, bowel obstruction, ileus, this was not all-inclusive list EKG interpreted by me (3pts min.). @ -As above X-rays interpreted by me (1pt min.). @ -KUB x-ray shows nonacute abdomen CT interpreted by me (1pt min.). @ -None done U/S interpreted by me (1pt. min.). @ -None done What testing was considered but not performed or refused? (CT, X-rays, U/S, labs)? Why? @ -None What meds were considered but not given or refused? Why? @ -None Did you discuss the management of the patient with other professionals (professionals i.e. , PA, BEHAVIORAL HEALTH RN, lab, RT, psych nurse, child protective services social worker, communications department head, teacher, stream control officer, continuous pillowcase cutter)? Give summary @ -No Was smoking cessation discussed for >3mins.? @ -No Was critical care preformed (if so, how long)? @ -No Were there social determinants of health that impacted care today? How? (Homel essness, low income, unemployed, alcoholism, drug addiction, transportation, low edu. Level, literacy, decrease access to med. care, intermediate, rehab)? @ -No Was there de-escalation of care discussed even if they declined (Discuss DNR or withdrawal of care, Hospice)? DNR status @ -No What co-morbidities impacted this encounter? (DM, HTN, Smoking, COPD, CAD, Cancer, CVA, ARF, Chemo, Hep., AIDS, mental health diagnosis, sleep apnea, morbid obesity)? @ -None Was patient admitted / discharged? Hospital course, mention meds given and route, prescriptions, significant lab abnormalities, going to OR and other pertinent info. @ -Patient is 76-year-old male presenting with chief complaint of constipation for the last week. On physical examination abdomen is soft, nontender, nondistended. Rectal exam shows no evidence of impaction. KUB x-ray shows no acute process. Patient is given an enema, he was able to have a bowel movement here report significant improvement in his symptoms. Educated on supportive treatment at home. Follow-up with PCP. Report back to ER with any new or worsening symptoms. Discussed return parameters and answered all questions. Patient conveyed verbal understanding and agreed to the plan. I discussed this case in detail with my attending Dr. Cooney Undiagnosed new problem with uncertain prognosis? @ -No Drug Therapy requiring intensive monitoring for toxicity (Heparin, Nitro, Insulin, Cardizem)? @ -No Were any procedures done? @ -No Diagnosis/symptom? @ -Constipation Acute, or Chronic, or Acute on Chronic? @ -Acute Uncomplicated (without systemic symptoms) or Complicated (systemic symptoms)? @ -Uncomplicated Side effects of treatment? @ -No Exacerbation, Progression, or Severe Exacerbation? @ -No Poses a threat to life or bodily function? How? (Chest pain, [place], [place], pneumonia, PE, COPD, DKA, ARF, appy, cholecystitis, CVA, Diverticulitis, Homicidal, Suicidal, threat to staff... and all critical care pts) @ -No Disposition Clinical Impression: Constipation Disposition: HOME SELF-CARE Condition: Good Instructions (If sedation given, give patient instructions): Constipation (ED) Additional Instructions: Follow-up with PCP. Report back to ER with any new or worsening symptoms. Is patient prescribed a controlled substance at d/c from ED?: No Referrals: Gene Noble III, MD [Primary Care Provider] - 1-2 days Time of Disposition: 23:08
[2022-07-26 23:17] VITALS: BP 115/68; PULSE 70; RESP 16; TEMP 98.2
== END 2022-07-26 23:16 | disposition home or self-care (01) ==
LOC: EC 17:40
DX: K59.00 Constipation, unspecified (principal); J44.9 Chronic obstructive pulmonary disease, unspecified; E11.9 Type 2 diabetes mellitus without complications; I10 Essential (primary) hypertension; F41.9 Anxiety disorder, unspecified; E07.9 Disorder of thyroid, unspecified; M19.90 Unspecified osteoarthritis, unspecified site; Z79.890 Hormone replacement therapy; Z79.899 Other long term (current) drug therapy; Z87.891 Personal history of nicotine dependence; Z88.8 Allergy status to other drugs, medicaments and biological substances
CPT/HCPCS: 74018; 99284

== ENCOUNTER 2022-07-28 21:10 | Inpatient (IN) | payer MEDICARE, BC ==
[2022-07-28] MEDS ORDERED: SODIUM CHLORIDE 0.9% 1,000 ML IV ONE (21:44)
--- NOTE | 2022-07-28 21:57 | ED ---
General Adult HPI - General Chief complaint: Weakness Stated complaint: weakness Time Seen by Provider: 07/28/22 21:17 Source: patient, EMS Mode of arrival: EMS - History of Present Illness Initial comments: This is a 76-year-old male with a past medical history including hypertension, diabetes, hypothyroidism and lung cancer currently undergoing chemotherapy as well as previous throat cancer status post radiation therapy presents emergency department for weakness via EMS. The patient stated that he had not been able to have a bowel movement yesterday and took MiraLAX and other medications and had a few episodes of diarrhea today. The patient stated that earlier in the d ay, he did fall down to his knees while trying to walk to the couch at home but stated he did not hit his head and did not lose consciousness. The patient did not complain of any pain however he stated that he was overall weak throughout the day today which made him call 911. The patient denied any lightheadedness or dizziness as well as any nausea or vomiting. The patient did state that he is 2 weeks from his last chemotherapy treatment. The patient denied any other acute pain or complaints at this time. - Related Data Home Medications Medication Instructions Recorded Confirmed Levothyroxine Sodium [Synthroid] 150 mcg PO DAILY 07/04/20 07/28/22 amLODIPine [Norvasc] 5 mg PO DAILY 02/03/21 07/28/22 Ferrous Sulfate [Feosol] 325 mg PO DAILY 07/28/22 07/28/22 Insulin Detemir [Levemir Flextouch 10 - 12 units SQ HS 07/28/22 07/28/22 Pen] Pantoprazole [Protonix] 40 mg PO DAILY 07/28/22 07/28/22 Pioglitazone [Actos] 30 mg PO DAILY 07/28/22 07/28/22 Sertraline [Zoloft] 100 mg PO DAILY 07/28/22 07/28/22 Allergies Allergy/AdvReac Type Severity Reaction Status Date / Time NSAIDS (Non-Steroidal AdvReac GI BLEED Verified 07/28/22 22:07 Anti-Inflamma Review of Systems ROS Statement: Those systems with pertinent positive or pertinent negative responses have been documented in the HPI. ROS Other: All systems not noted in ROS Statement are negative. Past Medical History Past Medical History: Cancer, COPD, Diabetes Mellitus, Eye Disorder, GERD/Reflux, Hypertension, Osteoarthritis (OA), Pneumonia, Thyroid Disorder Additional Past Medical History / Comment(s): Pt states he tested + for covid on 05/31/20 at [employer] and was hospitalized at [facility] same day. Other hx: Weakness since covid infection/falls, NIDDM type II (no longer on medication), throat CA w/ chemo and radiation (pt believes last treatment was january), skin cancer with removals, colitis, hypothyroid, R eye cataract, pain base L thumb. lung cancer History of Any Multi-Drug Resistant Organisms: None Reported Additional Past Surgical History / Comment(s): skin cancer removal x2, L eye cataract removed w/ lens implant, colonoscopy. Past Anesthesia/Blood Transfusion Reactions: No Reported Reaction Past Psychological History: Anxiety Smoking Status: Former smoker Past Alcohol Use History: None Reported Past Drug Use History: None Reported - Past Family History Father Family Medical History: Cancer Additional Family Medical History / Comment(s): Father of throat cancer. Mother Family Medical History: Cancer, Dementia, Thyroid Disorder Additional Family Medical History / Comment(s): Mother had breast cancer. General Exam Limitations: no limitations General appearance: alert, in no apparent distress Head exam: Present: atraumatic, normocephalic, normal inspection Eye exam: Present: normal appearance, PERRL Pupils: Present: normal accommodation ENT exam: Present: normal exam, normal oropharynx, mucous membranes moist Neck exam: Present: normal inspection, full ROM Respiratory exam: Present: normal lung sounds bilaterally Cardiovascular Exam: Present: regular rate, normal rhythm, normal heart sounds GI/Abdominal exam: Present: soft, normal bowel sounds Extremities exam: Present: normal inspection, full ROM Back exam: Present: normal inspection, full ROM Neurological exam: Present: alert, oriented X3, CN II-XII intact Psychiatric exam: Present: normal affect, normal mood Skin exam: Present: warm, dry Course Vital Signs 07/28/22 07/29/22 21:38 00:09 Temperature 98.9 F Pulse Rate 98 102 H Respiratory 20 20 Rate Blood Pressure 120/72 131/91 O2 Sat by Pulse 94 L 96 Oximetry EKG Findings - EKG Comments: EKG Findings:: An EKG was obtained and was interpreted by myself showing a rate of 80, WA interval of 22, QRS duration of 89 and QTC of 4:30. This EKG showed a normal sinus rhythm however had significant artifact secondary to patient motion. There were no ST segment elevations or depressions noted. Medical Decision Making - Medical Decision Making Was pt. sent in by a medical professional or institution (TRI Cortés, KEG HEADER, urgent care, hospital, or longterm...) When possible be specific @ -No Did you speak to anyone other than the patient for history (EMS, parent, family, police, friend...)? What history was obtained from this source @ -No Did you review nursing and triage notes (agree or disagree)? Why? @ -I reviewed and agree with nursing and triage notes Were old charts reviewed (outside hosp., previous admission, EMS record, old EKG , old radiological studies, urgent care reports/EKG's, longterm records)? Report findings @ -No old charts were reviewed Differential Diagnosis (chest pain, altered mental status, abdominal pain women, abdominal pain men, vaginal bleeding, weakness, fever, dyspnea, syncope, headache, dizziness, GI bleed, back pain, seizure, CVA, palpatations, mental health)? @ -UTI, pneumonia, dehydration, sepsis EKG interpreted by me (3pts min.). @ -As above X-rays interpreted by me (1pt min.). @ -None done CT interpreted by me (1pt min.). @ -None done U/S interpreted by me (1pt. min.). @ -None done What testing was considered but not performed or refused? (CT, X-rays, U/S, labs)? Why? @ -None What meds were considered but not given or refused? Why? @ -None Did you discuss the management of the patient with other professionals (professionals i.e. TRI Cortés, KEG HEADER, lab, RT, psych nurse, social worker assistant, editor newspaper, teacher, protocol officer, bilingual case manager)? Give summary @ -Yes, admitting physician Was smoking cessation discussed for >3mins.? @ -No Was critical care preformed (if so, how long)? @ -No Were there social determinants of health that impacted care today? How? (Homelessness, low income, unemployed, alcoholism, drug addiction, transportation, low edu. Level, literacy, decrease access to med. care, intermediate, rehab)? @ -No Was there de-escalation of care discussed even if they declined (Discuss DNR or withdrawal of care, Hospice)? DNR status @ -No What co-morbidities impacted this encounter? (DM, HTN, Smoking, COPD, CAD, Cancer, CVA, ARF, Chemo, Hep., AIDS, mental health diagnosis, sleep apnea, morbid obesity)? @ -Hypertension, lung cancer on chemotherapy Was patient admitted / discharged? Hospital course, mention meds given and route, prescriptions, significant lab abnormalities, going to OR and other pertinent info. @ -The patient was seen and evaluated emergency department. Physical exam, the patient was resting in bed without any acute distress. Vital signs were stable. The patient had overall weakness and was too weak to even inability to the bathroom in his room. Laboratory workup did show hypomagnesemia but was replaced in the emergency department along with 1 L of normal saline fluid. Due to the patient's continued weakness and the fact that he lives alone without any help at home, the patient will be admitted for further workup and evaluation for his weakness, failure to thrive and hypomagnesemia. The patient was agreeable to this plan and was admitted in stable condition. Undiagnosed new problem with uncertain prognosis? @ -No Drug Therapy requiring intensive monitoring for toxicity (Heparin, Nitro, Insulin, Cardizem)? @ -No Were any procedures done? @ -No Diagnosis/symptom? @ -Weakness, failure to thrive Acute, or Chronic, or Acute on Chronic? @ -Acute Uncomplicated (without systemic symptoms) or Complicated (systemic symptoms)? @ -Complicated Side effects of treatment? @ -No Exacerbation, Progression, or Severe Exacerbation? @ -No Poses a threat to life or bodily function? How? (Chest pain, [place], [place], pneumonia, PE, COPD, DKA, ARF, appy, cholecystitis, CVA, Diverticulitis, Homicidal, Suicidal, threat to staff... and all critical care pts) @ -Yes, continued weakness can cause a new falls and possible permanent injury Diagnosis/symptom? @ -Hypomagnesemia Acute, or Chronic, or Acute on Chronic? @ -Acute Uncomplicated (without systemic symptoms) or Complicated (systemic symptoms)? @ -Uncomplicated Side effects of treatment? @ -none Exacerbation, Progression, or Severe Exacerbation] @ -no Poses a threat to life or bodily function? @ -no - Lab Data Result diagrams: 07/28/22 21:50 07/28/22 21:50 Lab Results 0307/28/22 07/28/22 Range/Units 21:50 21:50 21:50 WBC 1.9 L (3.8-10.6) k/uL RBC 3.40 L (4.30-5.90) m/uL Hgb 10.9 L (13.0-17.5) gm/dL Hct 31.6 L (39.0-53.0) % MCV 93.0 (80.0-100.0) fL MCH 32.1 (25.0-35.0) pg MCHC 34.5 (31.0-37.0) g/dL RDW 14.9 (11.5-15.5) % Plt Count 141 L (150-450) k/uL MPV 8.6 Neutrophils % KEG HEADER Neutrophils % (Manual) 13 % Band Neuts % (Manual) 1 % Lymphocytes % KEG HEADER Lymphocytes % (Manual) 48 % Monocytes % KEG HEADER Monocytes % (Manual) 34 % Eosinophils % KEG HEADER Eosinophils % (Manual) 2 % Basophils % KEG HEADER Metamyelocytes % 2 % Neutrophils # KEG HEADER Neutrophils # (Manual) 0.20 L* (1.3-7.7) k/uL Lymphocytes # KEG HEADER Lymphocytes # (Manual) 0.91 L (1.0-4.8) k/uL Monocytes # KEG HEADER Monocytes # (Manual) 0.65 (0-1.0) k/uL Eosinophils # KEG HEADER Eosinophils # (Manual) 0.04 (0-0.7) k/uL Basophils # KEG HEADER Metamyelocytes # (Man) 0.04 H (0) k/uL Nucleated RBCs 0 (0-0) /100 WBC Manual Slide Review Performed RBC Morphology Normal PT 11.2 (9.0-12.0) sec INR 1.1 (<1.2) APTT 29.2 (22.0-30.0) sec Sodium 133 L (137-145) mmol/L Potassium 3.2 L (3.5-5.1) mmol/L Chloride 98 (98-107) mmol/L Carbon Dioxide 28 (22-30) mmol/L Anion Gap 7 mmol/L BUN 11 (9-20) mg/dL Creatinine 0.90 (0.66-1.25) mg/dL Est GFR (CKD-EPI)AfAm >90 (>60 ml/min/1.73 sqM) Est GFR (CKD-EPI)NonAf 83 (>60 ml/min/1.73 sqM) Glucose 134 H (74-99) mg/dL Calcium 8.5 (8.4-10.2) mg/dL Magnesium 0.9 L* (1.6-2.3) mg/dL Total Bilirubin 0.5 (0.2-1.3) mg/dL AST 16 L (17-59) U/L ALT 15 (4-49) U/L Alkaline Phosphatase 69 (38-126) U/L Troponin I (0.000-0.034) ng/mL NT-Pro-B Natriuret Pep pg/mL Total Protein 6.5 (6.3-8.2) g/dL Albumin 3.6 (3.5-5.0) g/dL Lipase <10 L (23-300) U/L 07/28/22 07/28/22 Range/Units 21:50 21:50 WBC (3.8-10.6) k/uL RBC (4.30-5.90) m/uL Hgb (13.0-17.5) gm/dL Hct (39.0-53.0) % MCV (80.0-100.0) fL MCH (25.0-35.0) pg MCHC (31.0-37.0) g/dL RDW (11.5-15.5) % Plt Count (150-450) k/uL MPV Neutrophils % Neutrophils % (Manual) % Band Neuts % (Manual) % Lymphocytes % Lymphocytes % (Manual) % Monocytes % Monocytes % (Manual) % Eosinophils % Eosinophils % (Manual) % Basophils % Metamyelocytes % % Neutrophils # Neutrophils # (Manual) (1.3-7.7) k/uL Lymphocytes # Lymphocytes # (Manual) (1.0-4.8) k/uL Monocytes # Monocytes # (Manual) (0-1.0) k/uL Eosinophils # Eosinophils # (Manual) (0-0.7) k/uL Basophils # Metamyelocytes # (Man) (0) k/uL Nucleated RBCs (0-0) /100 WBC Manual Slide Review RBC Morphology PT (9.0-12.0) sec INR (<1.2) APTT (22.0-30.0) sec Sodium (137-145) mmol/L Potassium (3.5-5.1) mmol/L Chloride (98-107) mmol/L Carbon Dioxide (22-30) mmol/L Anion Gap mmol/L BUN (9-20) mg/dL Creatinine (0.66-1.25) mg/dL Est GFR (CKD-EPI)AfAm (>60 ml/min/1.73 sqM) Est GFR (CKD-EPI)NonAf (>60 ml/min/1.73 sqM) Glucose (74-99) mg/dL Calcium (8.4-10.2) mg/dL Magnesium (1.6-2.3) mg/dL Total Bilirubin (0.2-1.3) mg/dL AST (17-59) U/L ALT (4-49) U/L Alkaline Phosphatase (38-126) U/L Troponin I <0.012 (0.000-0.034) ng/mL NT-Pro-B Natriuret Pep 206 pg/mL Total Protein (6.3-8.2) g/dL Albumin (3.5-5.0) g/dL Lipase (23-300) U/L Disposition Clinical Impression: Weakness, Failure to thrive, Hypomagnesemia Disposition: ADMITTED IP TO THIS [facility] Condition: Stable Is patient prescribed a controlled substance at d/c from ED?: No Referrals: Gene Noble III, MD [Primary Care Provider] - 1-2 days Time of Disposition: 00:30 Decision to Admit Reason: Admit from EC Decision Date: 07/29/22 Decision Time: 00:30
[2022-07-28 22:08] LABS: HCT 31.6 % (39.0-53.0); HGB 10.9 gm/dL (13.0-17.5); MCH 32.1 pg (25.0-35.0); MCHC 34.5 g/dL (31.0-37.0); Mean Platelet Volume 8.6; Platelet Count 141 k/uL (150-450); RDW 14.9 % (11.5-15.5); WBC 1.9 k/uL (3.8-10.6)
[2022-07-28 22:15] LABS: INR 1.1 (<1.2); Partial Thromboplastin Time 29.2 sec (22.0-30.0); Prothrombin Time 11.2 sec (9.0-12.0)
[2022-07-28 22:29] LABS: ALT 15 U/L (4-49); AST 16 U/L (17-59); African American GFR (CKD) >90 (>60 ml/min/1.73 sqM); Albumin 3.6 g/dL (3.5-5.0); Alkaline Phosphatase 69 U/L (38-126); Anion Gap 7 mmol/L; Blood Urea Nitrogen 11 mg/dL (9-20); Calcium 8.5 mg/dL (8.4-10.2); Carbon Dioxide 28 mmol/L (22-30); Chloride 98 mmol/L (98-107); Glucose 134 mg/dL (74-99); Lipase <10 U/L (23-300); Non-African American GFR(CKD) 83 (>60 ml/min/1.73 sqM); Potassium 3.2 mmol/L (3.5-5.1); Sodium 133 mmol/L (137-145); Total Bilirubin 0.5 mg/dL (0.2-1.3); Total Protein 6.5 g/dL (6.3-8.2)
[2022-07-28 23:15] LABS: Magnesium 0.9 mg/dL (1.6-2.3)
[2022-07-29] MEDS: MAGNESIUM SULFATE-D5W PMX 1 GM in DEXTROSE/WATER 1 100ML.BAG IVPB SCH ×6 (00:03→20:14)
[2022-07-29 00:32] LABS: Neutrophils % (M) 13 %
[2022-07-29 00:34] LABS: Band Neutrophils % 1 %; Eosinophils # (M) 0.04 k/uL (0-0.7); Lymphocytes # (M) 0.91 k/uL (1.0-4.8); Monocytes # (M) 0.65 k/uL (0-1.0)
[2022-07-29 00:35] LABS: Metamyelocytes # (M) 0.04 k/uL (0); Metamyelocytes % 2 %; Nucleated Red Blood Cells 0 /100 WBC (0-0); Total Cells Counted 100
[2022-07-29 00:42] LABS: RBC Morphology Normal
[2022-07-29] MEDS ORDERED: NALOXONE 0.4 MG/ML 1 ML VIAL IV PRN (01:45)
[2022-07-29] MEDS ORDERED: DEXTROSE 50% SYRINGE 50 ML IVP PRN ×2 (11:51)
[2022-07-29 12:34] LABS: Glucose,Whole Blood 118 mg/dL (70-110)
[2022-07-29] MEDS ORDERED: Potassium Replacement Protocol 1 EACH MISC MISCELLANE PRN (13:09)
[2022-07-29] MEDS ORDERED: Magnesium Replacement Protocol 1 EACH MISC MISCELLANE PRN (13:09)
--- NOTE | 2022-07-29 13:30 | XR ---
EXAMINATION TYPE: XR chest 1V portable DATE OF EXAM: 07/29/2022 CLINICAL HISTORY: Shortness of breath progress study. TECHNIQUE: Single AP portable upright view of the chest is obtained. COMPARISON: Chest x-ray from July 25, 2021 FINDINGS: There is new right internal jugular Mediport catheter terminating in SVC. There is some ch ronic parenchymal change without suspicious focal airspace opacity, pleural effusion, or pneumothorax seen bilaterally. The cardiac silhouette size is stable and within normal limits. Osseous structures are demineralized. IMPRESSION: As above.
[2022-07-29] MEDS: INSULIN ASPART (NovoLOG) 100 UNIT/ML VIAL SQ SCH ×3 (14:14→20:43)
[2022-07-29] MEDS: SODIUM CHLORIDE 0.9% 1,000 ML IV SCH (14:15)
[2022-07-29] MEDS: POTASSIUM CHLORIDE ER 20 MEQ TAB.ER PO SCH ×3 (14:15→18:09)
[2022-07-29 17:31] LABS: Glucose,Whole Blood 166 mg/dL (70-110)
[2022-07-29 20:05] LABS: Appearance,Urine Clear (Clear); Bilirubin,Urine Negative (Negative); Blood,Urine Negative (Negative); Color,Urine Yellow; Glucose,Urine (UA) Negative (Negative); Ketones,Urine Negative (Negative); Leukocyte Esterase,Urine Negative (Negative); Nitrite,Urine Negative (Negative); PH, Urine 5.5 (5.0-8.0); Protein,Urine Trace (Negative); Specific Gravity,Urine 1.018 (1.001-1.035); Urobilinogen,Urine <2.0 mg/dL (<2.0)
[2022-07-29] MEDS: INSULIN DETEMIR (LEVEMIR) 100 UNIT/ML SYR SQ SCH (20:44)
[2022-07-29 20:52] LABS: Glucose,Whole Blood 101 mg/dL (70-110)
[2022-07-29] MEDS ORDERED: POTASSIUM CHLORIDE ER 20 MEQ TAB.ER PO SCH (22:00)
--- NOTE | 2022-07-29 22:02 | HP ---
HISTORY AND PHYSICAL CHIEF COMPLAINT: Weakness. HISTORY OF PRESENT ILLNESS: This is a 76-year-old gentleman with a past medical history of multiple medical problems including hypertension, diabetes, history of lung cancer, also had a throat cancer. The patient is currently undergoing chemotherapy and the patient is complaining of severe weakness and the patient has severe hypomagnesemia as well as hypokalemia. The patient was admitted for further evaluation and treatment. The patient also had a few episodes of diarrhea also. There is no history of any fever, rigors, or chills. No history of headache, loss of consciousness, or shortness of breath at this time. PAST MEDICAL HISTORY: Lung cancer, on chemotherapy, history of COPD, diabetes mellitus. Rest of the history and rest of the chart is also reviewed. HOME MEDICATIONS: Actos. The rest of the medication and doses are reviewed. ALLERGIES: NSAIDs. FAMILY HISTORY: History of throat cancer. SOCIAL HISTORY: Previous history of smoking. REVIEW OF SYSTEMS: A 14-point review of systems is negative except as mentioned earlier. PHYSICAL EXAMINATION: VITAL SIGNS: Pulse is 74, blood pressure 124/60, respirations 18. HEENT: Conjunctivae normal. Oral mucosa dry. NECK: No jugular venous distention. CARDIOVASCULAR: S1, S2. RESPIRATIONS: Clear to auscultation. ABDOMEN: Soft. LEGS: No edema. NERVOUS SYSTEM: Diffusely weak. SKIN: No ulcer, rash, bleeding. JOINTS: No active deforming arthropathy. LABORATORY DATA: WBC. Rest of the labs are noted. ASSESSMENT: 1. Weakness and dehydration, present on admission. 2. Lung cancer, on chemotherapy. 3. Pancytopenia secondary to malignancy. 4. Hypokalemia. 5. Hyponatremia. 6. Hypomagnesemia. 7. Multiple medical issues. RECOMMENDATIONS AND DISCUSSION: This is a 76-year-old gentleman who presented with multiple complex medical issues. We will monitor the patient closely. I would recommend IV fluids. Otherwise, I would recommend Hematology/Oncology consultation. Replace potassium supplements. There is no evidence of any infection per se, but however, I would recommend cultures and continue to monitor for any fever and monitor the labs as well. Once again, the prognosis guarded. Home medications will be continued and blood sugar also will be monitored. Prognosis once again is guarded. Further recommendations to follow. MMODL / IJN: [id number] / [facility]
[2022-07-30] MEDS: LEVOTHYROXINE 75 MCG TAB PO SCH (05:36)
[2022-07-30 07:27] LABS: Glucose,Whole Blood 131 mg/dL (70-110)
--- NOTE | 2022-07-30 07:33 | HP ---
HISTORY AND PHYSICAL CHIEF COMPLAINT: Weakness. HISTORY OF PRESENT ILLNESS: This is a DICTATION ENDS HERE MMODL / IJN: [id number] /
[2022-07-30] MEDS: INSULIN ASPART (NovoLOG) 100 UNIT/ML VIAL SQ SCH ×4 (08:15→20:40)
[2022-07-30 09:56] LABS: HCT 27.7 % (39.6-50.0); HGB 9.1 g/dL (13.0-17.0); MCH 30.7 pg (27.0-32.0); MCHC 32.9 g/dL (32.0-37.0); MCV 93.6 fL (80.0-97.0); Mean Platelet Volume 10.5 fL (9.5-12.2); NRBC Per 100 WBC 0 /100 WBCS (0.0-0.0); Platelet Count 113 X 10*3/uL (140-440); RBC 2.96 X 10*6/uL (4.40-5.60); RDW 15.2 % (11.5-14.5); WBC 2.96 X 10*3/uL (4.50-10.00)
[2022-07-30 10:11] LABS: African American GFR (CKD) 96.5 (60.0-200.0); Anion Gap 15.6 mmol/L (10.00-18.00); BUN/Creat Ratio 9.44 Ratio (12.00-20.00); Blood Urea Nitrogen 8.5 mg/dL (9.0-27.0); Calcium 8.4 mg/dL (8.7-10.3); Carbon Dioxide 22.4 mmol/L (20.0-27.5); Magnesium 2.1 mg/dL (1.5-2.4); Non-African American GFR(CKD) 83.3 (60.0-200.0); Potassium 3.4 mmol/L (3.5-5.5)
[2022-07-30 11:10] LABS: Basophils # (A) 0.03 X 10*3/uL (0.00-0.10); Eosinophils # (A) 0.17 X 10*3/uL (0.04-0.35); Eosinophils % (A) 5.7 %; Immature Grans, Automated 2.7 %; Lymphocytes # (A) 1.19 X 10*3/uL (0.90-5.00); Lymphocytes % (A) 40.2 %; Monocytes # (A) 0.62 X 10*3/uL (0.20-1.00); Monocytes % (A) 20.9 %; Neutrophils # (A) 0.87 X 10*3/uL (1.80-7.70); Neutrophils % (A) 29.5 %; RBC Morphology NORMAL
[2022-07-30 11:12] LABS: Glucose,Whole Blood 139 mg/dL (70-110)
[2022-07-30] MEDS: amLODIPine 5 MG TAB PO SCH (11:33)
[2022-07-30] MEDS: FERROUS SULFATE 325 MG TAB PO SCH (11:35)
[2022-07-30] MEDS: SERTRALINE 100 MG TAB PO SCH (11:35)
[2022-07-30] MEDS: PANTOPRAZOLE 40 MG TABLET PO SCH (11:35)
[2022-07-30] MEDS: PIOGLITAZONE 30 MG TAB PO SCH (11:35)
[2022-07-30] MEDS: SODIUM CHLORIDE 0.9% 1,000 ML IV SCH ×3 (12:23→20:44)
--- NOTE | 2022-07-30 13:35 | PN ---
PROGRESS NOTE DATE OF SERVICE: 07/30/2022 SUBJECTIVE: This is a 76-year-old gentleman, who was admitted with weakness and dehydration, had a history of lung cancer. The patient is on chemotherapy. PT, OT evaluated the patient for possible ECF rehab. OBJECTIVE: VITAL SIGNS: Pulse is 81, blood pressure 106/69, respirations 16. CHEST: Clear to auscultation. CARDIOVASCULAR: S1, S2. ABDOMEN: Soft. NERVOUS SYSTEM: Diffusely weak. LABORATORY DATA: Noted. Pancytopenia. ASSESSMENT: 1. Weakness and dehydration, present on admission. 2. Lung cancer, on chemotherapy. 3. Pancytopenia secondary to malignancy. 4. Hypokalemia. 5. Hyponatremia. 6. Hypomagnesemia. 7. Multiple medical issues. RECOMMENDATIONS AND DISCUSSION: I recommend to continue current medications, continue symptomatic treatment. Magnesium is improved. Potassium is still low. We will continue to monitor with PT, OT. Repeat labs. Further recommendations to follow. MMODL / IJN: [id number] /
[2022-07-30 17:03] LABS: Glucose,Whole Blood 160 mg/dL (70-110)
[2022-07-30] MEDS: POTASSIUM CHLORIDE ER 20 MEQ TAB.ER PO SCH (17:41)
[2022-07-30 20:39] LABS: Glucose,Whole Blood 96 mg/dL (70-110)
[2022-07-30] MEDS: INSULIN DETEMIR (LEVEMIR) 100 UNIT/ML SYR SQ SCH (20:45)
[2022-07-31] MEDS: LEVOTHYROXINE 75 MCG TAB PO SCH (05:51)
[2022-07-31 07:12] LABS: Glucose,Whole Blood 124 mg/dL (70-110)
[2022-07-31] MEDS: INSULIN ASPART (NovoLOG) 100 UNIT/ML VIAL SQ SCH ×2 (07:20→13:07)
[2022-07-31 08:04] VITALS: BP 135/99; PULSE 69; RESP 17; TEMP 97.9
[2022-07-31] MEDS: FERROUS SULFATE 325 MG TAB PO SCH (09:16)
[2022-07-31] MEDS: PANTOPRAZOLE 40 MG TABLET PO SCH (09:16)
[2022-07-31] MEDS: amLODIPine 5 MG TAB PO SCH (09:16)
[2022-07-31] MEDS: SERTRALINE 100 MG TAB PO SCH (09:16)
[2022-07-31] MEDS: PIOGLITAZONE 30 MG TAB PO SCH (09:16)
[2022-07-31 10:36] LABS: HCT 29.4 % (39.6-50.0); HGB 9.5 g/dL (13.0-17.0); MCH 31.1 pg (27.0-32.0); MCHC 32.3 g/dL (32.0-37.0); MCV 96.4 fL (80.0-97.0); Mean Platelet Volume 10.5 fL (9.5-12.2); NRBC Per 100 WBC 0 /100 WBCS (0.0-0.0); Platelet Count 137 X 10*3/uL (140-440); RBC 3.05 X 10*6/uL (4.40-5.60); RDW 15.3 % (11.5-14.5); WBC 2.82 X 10*3/uL (4.50-10.00)
[2022-07-31 11:24] LABS: African American GFR (CKD) 97.1 (60.0-200.0); Anion Gap 8.5 mmol/L (10.00-18.00); BUN/Creat Ratio 6.65 Ratio (12.00-20.00); Blood Urea Nitrogen 5.9 mg/dL (9.0-27.0); Calcium 8.6 mg/dL (8.7-10.3); Carbon Dioxide 26.2 mmol/L (20.0-27.5); Magnesium 1.4 mg/dL (1.5-2.4); Non-African American GFR(CKD) 83.8 (60.0-200.0); Potassium 3.6 mmol/L (3.5-5.5)
[2022-07-31 11:32] LABS: Glucose,Whole Blood 189 mg/dL (70-110)
[2022-07-31 12:50] LABS: Basophils # (A) 0.04 X 10*3/uL (0.00-0.10); Basophils % (A) 1.4 %; Eosinophils # (A) 0.17 X 10*3/uL (0.04-0.35); Immature Grans, Automated 3.9 %; Lymphocytes # (A) 0.89 X 10*3/uL (0.90-5.00); Lymphocytes % (A) 31.6 %; Monocytes # (A) 0.44 X 10*3/uL (0.20-1.00); Monocytes % (A) 15.6 %; Neutrophils # (A) 1.17 X 10*3/uL (1.80-7.70); Neutrophils % (A) 41.5 %
--- NOTE | 2022-07-31 15:21 | P.PN ---
Subjective Progress Note Date: 07/31/22 Principal diagnosis: weakness at today's visit, patient is sitting in bedside chair. Patient is reporting feeling much improved today. He states that he's been ambulating in the room and in the halls. Patient denies pain. No other reported complaint at this time Objective - Vital Signs Vital signs: Vital Signs Temp 97.9 F 07/31/22 08:00 Pulse 69 07/31/22 08:00 Resp 17 07/31/22 08:00 BP 135/99 07/31/22 08:00 Pulse Ox 97 07/31/22 08:00 FiO2 Intake & Output 07/30/22 07/31/22 07/31/22 18:59 06:59 18:59 Intake Total 1140 Balance 1140 Intake: Intake, IV Titration 900 Amount Sodium Chloride 0.9% 1, 900 000 ml @ 75 mls/hr IV . [id number] JEANNA Rx#:[id number] Oral 240 Other: Voiding Method Toilet Toilet Toilet # Voids 2 - Constitutional General appearance: Present: average body habitus, no acute distress - EENT Eyes: Present: anicteric sclerae, EOMI ENT: Present: hearing grossly normal - Respiratory Details: breathing is even and unlabored - Cardiovascular Details: skin is warm and dry - Integumentary Integumentary: Present: pale - Neurologic Neurologic Comment(s): grossly intact - Musculoskeletal Musculoskeletal: Present: generalized weakness - Psychiatric Psychiatric: Present: A&O x's 3 - Labs CBC & Chem 7: 07/31/22 07:16 07/31/22 07:16 Labs: Abnormal Lab Results - Last 24 Hours (Table) 07/30/22 07/31/22 07/31/22 Range/Units 17:02 07:10 07:16 WBC 2.82 L (4.50-10.00) X 10*3/uL RBC 3.05 L (4.40-5.60) X 10*6/uL Hgb 9.5 L (13.0-17.0) g/dL Hct 29.4 L (39.6-50.0) % RDW 15.3 H (11.5-14.5) % Plt Count 137 L (140-440) X 10*3/uL Plt Count Comment DECREASED A Immature Gran # 0.11 H (0.00-0.04) X 10*3/uL Neutrophils # 1.17 L (1.80-7.70) X 10*3/uL Lymphocytes # 0.89 L (0.90-5.00) X 10*3/uL Anion Gap (10.00-18.00) mmol/L BUN (9.0-27.0) mg/dL BUN/Creatinine Ratio (12.00-20.00) Ratio Glucose (70-110) mg/dL POC Glucose (mg/dL) 160 H 124 H (70-110) mg/dL Calcium (8.7-10.3) mg/dL Magnesium (1.5-2.4) mg/dL 07/31/22 07/31/22 Range/Units 07:16 11:30 WBC (4.50-10.00) X 10*3/uL RBC (4.40-5.60) X 10*6/uL Hgb (13.0-17.0) g/dL Hct (39.6-50.0) % RDW (11.5-14.5) % Plt Count (140-440) X 10*3/uL Plt Count Comment Immature Gran # (0.00-0.04) X 10*3/uL Neutrophils # (1.80-7.70) X 10*3/uL Lymphocytes # (0.90-5.00) X 10*3/uL Anion Gap 8.50 L (10.00-18.00) mmol/L BUN 5.9 L (9.0-27.0) mg/dL BUN/Creatinine Ratio 6.65 L (12.00-20.00) Ratio Glucose 124 H (70-110) mg/dL POC Glucose (mg/dL) 189 H (70-110) mg/dL Calcium 8.6 L (8.7-10.3) mg/dL Magnesium 1.4 L (1.5-2.4) mg/dL Microbiology - Last 24 Hours (Table) 07/29/22 12:05 Blood Culture - Preliminary Blood No Growth after 48 hours Assessment and Plan (1) Lung cancer Status: Acute Priority: High Code(s): C34.90 - MALIGNANT NEOPLASM OF UNSP PART OF UNSP BRONCHUS OR LUNG SNOMED Code(s): 411610212 (2) Pancytopenia Status: Acute Priority: High Code(s): D61.818 - OTHER PANCYTOPENIA SNOMED Code(s): 954364619 Plan: Lung cancer: -Pt is a patient of Dr. English out of [facility]. Per pt he is being treated for throat and lung cancer, with chemotherapy and radiation -I spoke with patients oncology office, and they report pt is being treated with carbo/taxol and keytruda but did not know what cycle he is on or when his last treatment was given. I was transferred to the outpt infusion center at [facility] where he receives his treatments, at which time I was told that they could not give me any health information over the phone. -Pt reports he has f/u with Dr. English next week. Pancytopenia: -Hgb 9.5, WBC 2.82, Plts 137,000. Pancytopenia likely chemo induced. Counts have been stable -Will continue to monitor counts. CBC in AM -Please transfuse for hemoglobin less than 7 or if symptomatic *Patient is cleared from a hem/onc standpoint, once cleared by internal medicine and other consulted medical specialties Attests: I have seen and examined pt, performed H&P, developed impression and plan of care. Discussed with dictator. Agree with documentation, dictated as a scribe.
--- NOTE | 2022-08-01 15:16 | P.DS ---
Providers Date of admission: 07/29/22 01:45 Expected date of discharge: 07/31/22 Attending physician: Angel Huff MD Consults: 07/29/22 11:46 Consult Physician Routine Consulting Provider: Rogerio Santillan Consult Reason/Comments: malignancy Do you want consulting provider notified?: Yes Primary care physician: Gene Noble Hospital Course: Final diagnosis Weakness and dehydration, present on admission Lung cancer, currently receiving chemotherapy Pancytopenia secondary to malignancy Hypokalemia hyponatremia hypomagnesemia Diabetes mellitus COPD, not an exacerbation Anxiety history Former smoker Discharge disposition Patient is being discharged in a stable condition with guarded prognosis to home with home care. Patient will follow-up with Dr. Noble in the outpatient setting upon discharge. Patient is to hematology/oncology out [facility] Dr. English in the outpatient setting as scheduled. Patient reports he has a follow-up appointment this upcoming week. Total time taken is greater than 35 minutes. Hospital course This is a 76-year-old male who was recently admitted with weakness and dehydration with history of lung cancer being followed by Dr. English out of [facility] currently receiving treatment for the cancer. Patient seen and evaluated by PT/OT therapy and has shown improvement after electrolytes replacement and IV hydration and will be going home with home care. Patient was seen and evaluated by oncology while here recommending to continue following up. encouraged increased oral intake and follow-up labs in the outpatient setting. Patient encouraged to follow-up with primary care provider this week as well. Currently no reports of chest pain, shortness of breath, or palpitations. Patient is afebrile. No reports of nausea or vomiting and patient is tolerating diet. Patient will be discharged home today. Physical exam: Gen: This is a 76-year-old male who is awake, alert and oriented 3, well-deve loped, well-nourished HEENT: Head is atraumatic, normocephalic. Pupils equal, round. Sclerae is anicteric. NECK: Supple. No JVD. No lymphadenopathy. No thyromegaly. LUNGS: Diminished breath sounds bilaterally with no wheezes or rhonchi. No intercostal retractions. HEART: S1, S2 are muffled ABDOMEN: Soft. Bowel sounds are present. No masses. No tenderness. EXTREMITIES: No pedal edema. No calf tenderness. NEUROLOGICAL: Patient is awake, alert and oriented x3. Cranial nerves 2 through 12 are grossly intact. Please refer to medication reconciliation sheet for a list of medications. The impression and plan of care has been dictated by Yamileth Vasquez, Nurse Practitioner as directed. Dr. Tito MD I have performed a history and examination and MDM of this patient, discussed the same with the dictator, and agree with the dictator's assessment and plan as written ,documented as a scribe. Based on total visit time, I have performed more than 50% of the visit. Patient Condition at Discharge: Stable Plan - Discharge Summary New Discharge Prescriptions: Continue Levothyroxine Sodium [Synthroid] 150 mcg PO DAILY Insulin Detemir [Levemir Flextouch Pen] 10 - 12 units SQ HS Ferrous Sulfate [Iron (65 MG Elemental)] 325 mg PO DAILY Pantoprazole [Protonix] 40 mg PO DAILY amLODIPine [Norvasc] 5 mg PO DAILY Pioglitazone [Actos] 30 mg PO DAILY Sertraline [Zoloft] 100 mg PO DAILY Discharge Medication List Levothyroxine Sodium [Synthroid] 150 mcg PO DAILY 07/04/20 [History] amLODIPine [Norvasc] 5 mg PO DAILY 02/03/21 [History] Ferrous Sulfate [Iron (65 MG Elemental)] 325 mg PO DAILY 07/28/22 [History] Insulin Detemir [Levemir Flextouch Pen] 10 - 12 units SQ HS 07/28/22 [History] Pantoprazole [Protonix] 40 mg PO DAILY 07/28/22 [History] Pioglitazone [Actos] 30 mg PO DAILY 07/28/22 [History] Sertraline [Zoloft] 100 mg PO DAILY 07/28/22 [History] Follow up Appointment(s)/Referral(s): [facility] Kiran,Home Care [NON-STAFF] - 1 Week Gene Noble III, MD [Primary Care Provider] - 1-2 days (Office will call patient to make a follow up appointment ) Patient Instructions/Handouts: Vitamin K in Foods (DC) Activity/Diet/Wound Care/Special Instructions: Activity Limited until follow-up follow-up with primary care provider on discharge Follow-up oncology outpatient Continue taking medications as prescribed Discharge Disposition: HOME WITH HOME HEALTH SERVICES
== END 2022-07-31 14:24 | disposition home health service (06) | DRG 640 ==
LOC: EC 21:10 → 5NMEDONC 07-29 01:45
PROVIDERS: ADMIT Internal Medicine; ATTEND Internal Medicine
DX: E86.0 Dehydration (principal); D61.810 Antineoplastic chemotherapy induced pancytopenia; C34.90 Malignant neoplasm of unspecified part of unspecified bronchus or lung; E83.42 Hypomagnesemia; E87.1 Hypo-osmolality and hyponatremia; R62.7 Adult failure to thrive; Z68.25 Body mass index [BMI] 25.0-25.9, adult; T45.1X5A Adverse effect of antineoplastic and immunosuppressive drugs, initial encounter; E87.6 Hypokalemia; E11.9 Type 2 diabetes mellitus without complications; F41.9 Anxiety disorder, unspecified; J44.9 Chronic obstructive pulmonary disease, unspecified; K21.9 Gastro-esophageal reflux disease without esophagitis; M19.90 Unspecified osteoarthritis, unspecified site; I10 Essential (primary) hypertension; R19.7 Diarrhea, unspecified; W18.30XA Fall on same level, unspecified, initial encounter; Y93.01 Activity, walking, marching and hiking; Y92.019 Unspecified place in single-family (private) house as the place of occurrence of the external cause; E03.9 Hypothyroidism, unspecified; Z87.891 Personal history of nicotine dependence; Z92.3 Personal history of irradiation; Z85.828 Personal history of other malignant neoplasm of skin; Z85.21 Personal history of malignant neoplasm of larynx; Z79.890 Hormone replacement therapy; Z79.4 Long term (current) use of insulin; Z88.6 Allergy status to analgesic agent; Z87.01 Personal history of pneumonia (recurrent); Z86.16 Personal history of COVID-19
CPT/HCPCS: 71045; 74018; 80048; 80053; 81003; 83036; 83690; 83735; 83880; 84132; 84484; 85025; 85610; 85652; 85730; 86140; 87040; 93005; 96360; 96361; 99285

== ENCOUNTER 2022-08-12 09:14 | Inpatient (IN) | payer MEDICARE, BC ==
[2022-08-12] MEDS ORDERED: SODIUM CHLORIDE 0.9% 1,000 ML IV STA (10:03)
[2022-08-12 11:21] LABS: ALT 12 U/L (4-49); AST 21 U/L (17-59); African American GFR (CKD) >90 (>60 ml/min/1.73 sqM); Albumin 3.4 g/dL (3.5-5.0); Alkaline Phosphatase 66 U/L (38-126); Anion Gap 9 mmol/L; Blood Urea Nitrogen 13 mg/dL (9-20); Calcium 8.7 mg/dL (8.4-10.2); Carbon Dioxide 27 mmol/L (22-30); Chloride 101 mmol/L (98-107); Glucose 116 mg/dL (74-99); Magnesium 1.3 mg/dL (1.6-2.3); Non-African American GFR(CKD) 85 (>60 ml/min/1.73 sqM); Sodium 137 mmol/L (137-145); Total Bilirubin 0.5 mg/dL (0.2-1.3); Total Protein 6.7 g/dL (6.3-8.2)
--- NOTE | 2022-08-12 11:35 | ED ---
Abdominal Pain HPI - General Chief Complaint: Abdominal Pain Stated Complaint: constipation Time Seen by Provider: 08/12/22 09:20 Source: EMS Mode of arrival: EMS Limitations: no limitations - History of Present Illness Initial Comments: 36-year-old male with past history of lung cancer on chemotherapy who presents emergency room reporting abdominal pain. He reports that every time he gets chemo he becomes constipated. He was seen in the emergency department for same complaint a few weeks ago. States he received chemo on . Subsequently has not been able to have a bowel movement since. He has been taking stool softeners and using MiraLAX however he is unable to stool. He has mild abdominal discomfort but no overt pain. States he had a poor appetite. He has been weak and feels unable to care for himself. States all family is out of town. He denies any chest pain or shortness of breath. No fevers. No other alleviating, precipitating or modifying factors - Related Data Home Medications Medication Instructions Recorded Confirmed Levothyroxine Sodium [Synthroid] 150 mcg PO DAILY 07/04/20 08/12/22 amLODIPine [Norvasc] 5 mg PO HS 02/03/21 08/12/22 Ferrous Sulfate [Iron (65 MG 325 mg PO HS 07/28/22 08/12/22 Elemental)] Insulin Detemir [Levemir Flextouch 10 - 12 units SQ HS 07/28/22 08/12/22 Pen] Pantoprazole [Protonix] 40 mg PO HS 07/28/22 08/12/22 Pioglitazone [Actos] 30 mg PO HS 07/28/22 08/12/22 Sertraline [Zoloft] 100 mg PO HS 07/28/22 08/12/22 Previous Rx's Medication Instructions Recorded Lactulose [Cephulac] 20 gm PO BID PRN #360 ml 08/14/22 Magnesium Hydroxide [Milk of 2,400 mg PO ONCE PRN ml 08/14/22 Magnesia Concentrate] Nystatin 100,000 Unit/ml Susp 5 ml PO QID 10 Days ml 08/14/22 [Mycostatin Oral Susp] Allergies Allergy/AdvReac Type Severity Reaction Status Date / Time NSAIDS (Non-Steroidal AdvReac GI BLEED Verified 08/12/22 12:32 Anti-Inflamma Review of Systems ROS Statement: Those systems with pertinent positive or pertinent negative responses have been documented in the HPI. ROS Other: All systems not noted in ROS Statement are negative. Past Medical History Past Medical History: Cancer, COPD, Diabetes Mellitus, Eye Disorder, GERD/Reflu x, Hypertension, Osteoarthritis (OA), Pneumonia, Thyroid Disorder Additional Past Medical History / Comment(s): NIDDM type II (no longer on medication), throat CA w/ chemo and radiation (pt believes last treatment was january), skin cancer with removals, colitis, hypothyroid, R eye cataract, pain base L thumb. lung cancer (last chemo 2 weeks ago) History of Any Multi-Drug Resistant Organisms: None Reported Additional Past Surgical History / Comment(s): skin cancer removal x2, L eye cataract removed w/ lens implant, colonoscopy. Past Anesthesia/Blood Transfusion Reactions: No Reported Reaction Past Psychological History: Anxiety Smoking Status: Former smoker Past Alcohol Use History: None Reported Past Drug Use History: None Reported - Past Family History Father Family Medical History: Cancer Additional Family Medical History / Comment(s): Father of throat cancer. Mother Family Medical History: Cancer, Dementia, Thyroid Disorder Additional Family Medical History / Comment(s): Mother had breast cancer. General Exam Limitations: no limitations General appearance: alert, in no apparent distress Head exam: Present: atraumatic, normocephalic, normal inspection Eye exam: Present: normal appearance, PERRL, EOMI. Absent: scleral icterus, conjunctival injection, periorbital swelling ENT exam: Present: normal exam, mucous membranes moist Neck exam: Present: normal inspection. Absent: tenderness, meningismus, lymphadenopathy Respiratory exam: Present: normal lung sounds bilaterally. Absent: respiratory distress, wheezes, rales, rhonchi, stridor Cardiovascular Exam: Present: regular rate, normal rhythm, normal heart sounds. Absent: systolic murmur, diastolic murmur, rubs, gallop, clicks GI/Abdominal exam: Present: soft, distended, normal bowel sounds. Absent: tenderness, guarding, rebound, rigid Extremities exam: Present: normal inspection, full ROM, normal capillary refill. Absent: tenderness, pedal edema, joint swelling, calf tenderness Back exam: Present: normal inspection Neurological exam: Present: alert, oriented X3, CN II-XII intact Psychiatric exam: Present: normal affect, normal mood Skin exam: Present: warm, dry, intact, normal color. Absent: rash Course Vital Signs 08/12/22 08/12/22 08/12/22 09:18 10:48 13:28 Temperature 97.4 F L Pulse Rate 86 70 80 Respiratory 16 16 18 Rate Blood Pressure 140/80 124/71 123/78 O2 Sat by Pulse 96 95 96 Oximetry Medical Decision Making - Medical Decision Making Was pt. sent in by a medical professional or institution (, [facility], [facility], urgent care, hospital, or penitentiary...) When possible be specific @ -No Did you speak to anyone other than the patient for history (EMS, parent, family, police, friend...)? What history was obtained from this source @ -No Did you review nursing and triage notes (agree or disagree)? Why? @ -I reviewed and agree with nursing and triage notes Were old charts reviewed (outside hosp., previous admission, EMS record, old EKG, old radiological studies, urgent care reports/EKG's, penitentiary records)? Report findings @ - old charts were reviewed Differential Diagnosis (chest pain, altered mental status, abdominal pain women, abdominal pain men, vaginal bleeding, weakness, fever, dyspnea, syncope, headache, dizziness, GI bleed, back pain, seizure, CVA, palpatations, mental health, musculoskeletal)? @ -constipation, dehydration, small bowel obstruction EKG interpreted by me (3pts min.). @ -As above X-rays interpreted by me (1pt min.). @ -yes CT interpreted by me (1pt min.). @ -no U/S interpreted by me (1pt. min.). @ -None done What testing was considered but not performed or refused? (CT, X-rays, U/S, labs)? Why? @ -None What meds were considered but not given or refused? Why? @ -None Did you discuss the management of the patient with other professionals (professionals i.e. , [facility], [facility], lab, RT, psych nurse, social work lecturer, adolescent specialist, teacher, chief strategy officer, business case analyst)? Give summary @ -admitting physician Was smoking cessation discussed for >3mins.? @ -No Was critical care preformed (if so, how long)? @ -No Were there social determinants of health that impacted care today? How? (Homelessness, low income, unemployed, alcoholism, drug addiction, transportation, low edu. Level, literacy, decrease access to med. care, senior living, rehab)? @ -No Was there de-escalation of care discussed even if they declined (Discuss DNR or withdrawal of care, Hospice)? DNR status @ -No What co-morbidities impacted this encounter? (DM, HTN, Smoking, COPD, CAD, Cancer, CVA, ARF, Chemo, Hep., AIDS, mental health diagnosis, sleep apnea, morbid obesity)? @ -lung cancer on chemo Was patient admitted / discharged? Hospital course, mention meds given and route, prescriptions, significant lab abnormalities, going to OR and other pertinent info. @ -Upon arrival patient is placed into room 21. Thorough history and physical exam was performed. X-rays performed which demonstrates moderate stool Industry. Laboratory studies were conducted demonstrate a magnesium of 1.3. Patient given magnesium citrate for his constipation. Magnesium is replaced with IV. Patient will be admitted for failure to thrive, constipation and hypomagnesemia. Spoke with Dr. Francis who is agreeable to admit the patient Undiagnosed new problem with uncertain prognosis? @ -no Drug Therapy requiring intensive monitoring for toxicity (Heparin, Nitro, Insulin, Cardizem)? @ -No Were any procedures done? @ -none Diagnosis/symptom? @ -acute constipation, acute dehydration, lung cancer on chemo Acute, or Chronic, or Acute on Chronic? @ -acute, recurrent Uncomplicated (without systemic symptoms) or Complicated (systemic symptoms)? @ -complicated Side effects of treatment? @ -No Exacerbation, Progression, or Severe Exacerbation? @ -No Poses a threat to life or bodily function? How? (Chest pain, [place], [place], pneumonia, PE, COPD, DKA, ARF, appy, cholecystitis, CVA, Diverticulitis, Homicidal, Suicidal, threat to staff... and all critical care pts) @ -no - Lab Data Result diagrams: 08/14/22 06:59 08/14/22 06:59 Lab Results 08/12/22 08/12/22 08/12/22 Range/Units 10:08 10:08 10:08 WBC 3.8 (3.8-10.6) k/uL RBC 3.28 L (4.30-5.90) m/uL Hgb 10.4 L (13.0-17.5) gm/dL Hct 31.3 L (39.0-53.0) % MCV 95.2 (80.0-100.0) fL MCH 31.5 (25.0-35.0) pg MCHC 33.1 (31.0-37.0) g/dL RDW 16.9 H (11.5-15.5) % Plt Count 214 (150-450) k/uL MPV 8.1 Neutrophils % (Manual) 50 % Band Neuts % (Manual) 4 % Lymphocytes % (Manual) 20 % Monocytes % (Manual) 23 % Eosinophils % (Manual) 3 % Neutrophils # (Manual) 2.00 (1.3-7.7) k/uL Lymphocytes # (Manual) 0.76 L (1.0-4.8) k/uL Monocytes # (Manual) 0.87 (0-1.0) k/uL Eosinophils # (Manual) 0.11 (0-0.7) k/uL Nucleated RBCs 0 (0-0) /100 WBC Manual Slide Review Performed Anisocytosis Slight Macrocytosis Slight Sodium 137 (137-145) mmol/L Potassium 4.0 (3.5-5.1) mmol/L Chloride 101 (98-107) mmol/L Carbon Dioxide 27 (22-30) mmol/L Anion Gap 9 mmol/L BUN 13 (9-20) mg/dL Creatinine 0.85 (0.66-1.25) mg/dL Est GFR (CKD-EPI)AfAm >90 (>60 ml/min/1.73 sqM) Est GFR (CKD-EPI)NonAf 85 (>60 ml/min/1.73 sqM) Glucose 116 H (74-99) mg/dL Plasma Lactic Acid Addy 0.9 (0.7-2.0) mmol/L Calcium 8.7 (8.4-10.2) mg/dL Magnesium 1.3 L (1.6-2.3) mg/dL Total Bilirubin 0.5 (0.2-1.3) mg/dL AST 21 (17-59) U/L ALT 12 (4-49) U/L Alkaline Phosphatase 66 (38-126) U/L Total Protein 6.7 (6.3-8.2) g/dL Albumin 3.4 L (3.5-5.0) g/dL - EKG Data EKG Comments: EKG demonstrates sinus rhythm with a rate of 76. DC interval 189. QRS 86. QTC of 403. No acute ST segment elevations or depressions Disposition Clinical Impression: Hypomagnesemia, Constipation, Lung cancer Disposition: ADMITTED IP TO THIS HOSP Condition: Fair Is patient prescribed a controlled substance at d/c from ED?: No Time of Disposition: 13:12 Decision to Admit Reason: Admit from EC Decision Date: 08/12/22 Decision Time: 13:12
[2022-08-12 11:36] LABS: Anisocytosis Slight; HCT 31.3 % (39.0-53.0); HGB 10.4 gm/dL (13.0-17.5); MCH 31.5 pg (25.0-35.0); MCHC 33.1 g/dL (31.0-37.0); MCV 95.2 fL (80.0-100.0); Macrocytosis Slight; Mean Platelet Volume 8.1; Platelet Count 214 k/uL (150-450); RBC 3.28 m/uL (4.30-5.90); RDW 16.9 % (11.5-15.5); WBC 3.8 k/uL (3.8-10.6)
--- NOTE | 2022-08-12 11:53 | XR ---
EXAMINATION TYPE: XR KUB DATE OF EXAM: 08/12/2022 Comparison: 07/26/2022 Clinical History: 76-year-old male constip Findings: Lung bases are clear. No evidence for free intraperitoneal air. Ucxb-uc-ccauzeqk stool burden. No dilated small bowel or air-fluid levels. Phleboliths in the pelvis are unchanged. Impression: No evidence for free air or bowel obstruction. Ksjp-jp-caziywsy stool.
[2022-08-12] MEDS ORDERED: MAGNESIUM HYDROXIDE 2,400 MG/10 ML CUP PO PRN (13:04)
[2022-08-12 13:08] LABS: Band Neutrophils % 4 %; Eosinophils # (M) 0.11 k/uL (0-0.7); Lymphocytes # (M) 0.76 k/uL (1.0-4.8); Monocytes # (M) 0.87 k/uL (0-1.0); Neutrophils % (M) 50 %; Nucleated Red Blood Cells 0 /100 WBC (0-0); Total Cells Counted 100
[2022-08-12] MEDS ORDERED: NALOXONE 0.4 MG/ML 1 ML VIAL IV PRN (13:13)
[2022-08-12] MEDS: SODIUM CHLORIDE 0.9% 1,000 ML IV SCH (13:28)
[2022-08-12] MEDS: MAGNESIUM SULFATE-D5W PMX 1 GM in DEXTROSE/WATER 1 100ML.BAG IVPB SCH ×2 (13:28→16:17)
--- NOTE | 2022-08-12 13:31 | HP ---
HISTORY AND PHYSICAL CHIEF COMPLAINT: Weakness, constipation, and abdominal discomfort. HISTORY OF PRESENT ILLNESS: This 76-year-old gentleman with a past medical history of multiple medical problems including COPD, diabetes mellitus type 2. Receiving chemoradiation for throat cancer. The patient is complaining of diminished p.o. intake and severely weak and dehydrated. Patient also complained of constipation, came to [facility], admitted for further evaluation and treatment. There is no history of any fever, rigors, or chills. PAST MEDICAL HISTORY: Reviewed include COPD, throat cancer, rest of the history and rest of the chart is reviewed. HOME MEDICATIONS: Reviewed include Norvasc, rest of the dose and rest of medications reviewed. ALLERGIES: NSAIDs. FAMILY HISTORY: History of cancer. SOCIAL HISTORY: Previous history of smoking. REVIEW OF SYSTEMS: A 14-point review is negative except as mentioned earlier. PHYSICAL EXAMINATION: VITAL SIGNS: Pulse 86, blood pressure 140/80, respirations 16. HEENT: Conjunctivae normal. Oral mucosa is severely dry. NECK: No jugular venous distention. SKIN: Turgor lost. CARDIOVASCULAR: S1, S2 muffled. ABDOMEN: Soft, nontender. RESPIRATIONS: Clear to auscultation. NERVOUS SYSTEM: Diffusely weak. SKIN: As mentioned earlier. JOINTS: No active deforming arthropathy. LYMPHATICS: No lymph node palpable in neck, axillae or groin. LABORATORY DATA: Reviewed. ASSESSMENT: 1. Severe dehydration with diminished p.o. intake. 2. Throat cancer, status post radiation chemotherapy. 3. Hypomagnesemia. 4. Chronic obstructive pulmonary disease. 5. Diabetes mellitus type 2. 6. Multiple medical issues. RECOMMENDATIONS: This 76-year-old gentleman presented with multiple complex medical issues, we will monitor the patient closely. We will initiate IV fluids, replace magnesium. Check lytes. Otherwise, consult Hematology, Oncology. The prognosis is guarded because of multiple complex medical issues. See orders for details. Further recommendations to follow. Home medications will be continued once they are verified. MMODL / IJN: [id number] /
[2022-08-12] MEDS ORDERED: Magnesium Replacement Protocol 1 EACH MISC MISCELLANE PRN (15:55)
[2022-08-12] MEDS ORDERED: Potassium Replacement Protocol 1 EACH MISC MISCELLANE PRN (15:55)
[2022-08-12] MEDS: LACTULOSE 20 GM/30 ML CUP PO SCH ×2 (20:01→21:39)
[2022-08-12] MEDS: amLODIPine 5 MG TAB PO SCH (20:02)
[2022-08-12] MEDS: SERTRALINE 100 MG TAB PO SCH (20:02)
[2022-08-12] MEDS: PANTOPRAZOLE 40 MG TABLET PO SCH (20:02)
[2022-08-13] MEDS: SODIUM CHLORIDE 0.9% 1,000 ML IV SCH ×2 (00:38→10:26)
[2022-08-13] MEDS: LEVOTHYROXINE 75 MCG TAB PO SCH (05:38)
[2022-08-13 11:04] LABS: Basophils # (A) 0.02 X 10*3/uL (0.00-0.10); Basophils % (A) 0.5 %; Eosinophils % (A) 2.6 %; HCT 27.5 % (39.6-50.0); HGB 8.9 g/dL (13.0-17.0); Immature Grans, Automated 0.8 %; Lymphocytes # (A) 0.88 X 10*3/uL (0.90-5.00); Lymphocytes % (A) 22.9 %; MCH 31.7 pg (27.0-32.0); MCHC 32.4 g/dL (32.0-37.0); MCV 97.9 fL (80.0-97.0); Mean Platelet Volume 9.8 fL (9.5-12.2); Monocytes # (A) 0.83 X 10*3/uL (0.20-1.00); Monocytes % (A) 21.6 %; NRBC Per 100 WBC 0.5 /100 WBCS (0.0-0.0); Neutrophils # (A) 1.98 X 10*3/uL (1.80-7.70); Neutrophils % (A) 51.6 %; Platelet Count 191 X 10*3/uL (140-440); RBC 2.81 X 10*6/uL (4.40-5.60); RDW 17.1 % (11.5-14.5); WBC 3.84 X 10*3/uL (4.50-10.00)
[2022-08-13 11:16] LABS: African American GFR (CKD) 96.5 (60.0-200.0); Anion Gap 11.7 mmol/L (10.00-18.00); BUN/Creat Ratio 8.44 Ratio (12.00-20.00); Blood Urea Nitrogen 7.6 mg/dL (9.0-27.0); Calcium 8.4 mg/dL (8.7-10.3); Carbon Dioxide 24.3 mmol/L (20.0-27.5); Magnesium 1.6 mg/dL (1.5-2.4); Non-African American GFR(CKD) 83.3 (60.0-200.0); Potassium 3.3 mmol/L (3.5-5.5)
[2022-08-13] MEDS ORDERED: Potassium Replacement Protocol 1 EACH MISC MISCELLANE PRN (11:29)
[2022-08-13 11:38] VITALS: BMI 25.8
[2022-08-13] MEDS: LACTULOSE 20 GM/30 ML CUP PO SCH (11:56)
[2022-08-13] MEDS: POTASSIUM CHLORIDE ER 20 MEQ TAB.ER PO SCH ×2 (11:59→13:31)
[2022-08-13] MEDS: 0.9% NACL WITH KCL 20 MEQ/L 1,000 ML IV SCH (13:31)
--- NOTE | 2022-08-13 14:05 | PN ---
PROGRESS NOTE DATE OF SERVICE: 08/13/2022 SUBJECTIVE: This is a 76-year-old gentleman who was admitted with severe dehydration and diminished p.o. intake, also had a throat cancer also. No chest pain, no palpitations, no fever. OBJECTIVE: VITAL SIGNS: Pulse is 78, blood pressure 140/70, respirations 18. CHEST: Clear to auscultation. CARDIOVASCULAR: S1, S2. ABDOMEN: Soft. LABORATORY DATA: Reviewed. ASSESSMENT: 1. Severe dehydration with diminished p.o. intake. 2. Throat cancer, status post radiation chemotherapy. 3. Hypomagnesemia. 4. Chronic obstructive pulmonary disease. 5. Diabetes mellitus type 2. 6. Multiple medical issues. RECOMMENDATIONS: Recommended to continue current management, continue symptomatic treatment. Continue with IV fluids, potassium, magnesium replacement. Otherwise, prognosis is guarded because of the multiple complex medical issues and further recommendations to follow. MMODL / IJN: [id number] /
[2022-08-13] MEDS ORDERED: LACTULOSE 20 GM/30 ML CUP PO PRN (15:15)
[2022-08-13] MEDS: amLODIPine 5 MG TAB PO SCH (20:06)
[2022-08-13] MEDS: PANTOPRAZOLE 40 MG TABLET PO SCH (20:06)
[2022-08-13] MEDS: SERTRALINE 100 MG TAB PO SCH (20:06)
[2022-08-14 01:32] VITALS: PULSE 78
[2022-08-14] MEDS: 0.9% NACL WITH KCL 20 MEQ/L 1,000 ML IV SCH (04:14)
[2022-08-14] MEDS: LEVOTHYROXINE 75 MCG TAB PO SCH (05:20)
[2022-08-14 07:50] VITALS: BP 117/70; RESP 17; TEMP 98.2
[2022-08-14 07:51] LABS: African American GFR (CKD) >90 (>60 ml/min/1.73 sqM); Anion Gap 7 mmol/L; Blood Urea Nitrogen 5 mg/dL (9-20); Calcium 8.4 mg/dL (8.4-10.2); Carbon Dioxide 26 mmol/L (22-30); Chloride 104 mmol/L (98-107); Glucose 127 mg/dL (74-99); Non-African American GFR(CKD) >90 (>60 ml/min/1.73 sqM); Potassium 3.9 mmol/L (3.5-5.1); Sodium 137 mmol/L (137-145)
[2022-08-14 08:57] LABS: Anisocytosis Slight; HCT 29.7 % (39.0-53.0); MCH 32.4 pg (25.0-35.0); MCHC 33.6 g/dL (31.0-37.0); MCV 96.5 fL (80.0-100.0); Macrocytosis Slight; Mean Platelet Volume 8.2; Platelet Count 198 k/uL (150-450); RBC 3.08 m/uL (4.30-5.90); RDW 16.8 % (11.5-15.5); WBC 3.2 k/uL (3.8-10.6)
[2022-08-14 14:41] LABS: Band Neutrophils % 1 %; Eosinophils # (M) 0.13 k/uL (0-0.7); Lymphocytes # (M) 1.09 k/uL (1.0-4.8); Monocytes # (M) 0.58 k/uL (0-1.0); Neutrophils % (M) 43 %; Nucleated Red Blood Cells 0 /100 WBC (0-0); Total Cells Counted 100
--- NOTE | 2022-08-17 06:29 | P.DS ---
Providers Date of admission: 08/12/22 13:14 Expected date of discharge: 08/14/22 Attending physician: Tomas Francis Primary care physician: Gene Noble Hospital Course: Final diagnosis Severe dehydration with diminished oral intake Throat cancer, status post radiation chemotherapy Hypomagnesemia Chronic obstructive pulmonary disease, not in exacerbation Diabetes mellitus, type II Constipation Discharge disposition Patient is being discharged in a stable condition with guarded prognosis to home. Patient will follow-up with Dr. Noble in the outpatient setting upon discharge. Patient is to follow-up with oncology outpatient as scheduled. Patient to continue nystatin swish and swallow as well as lactulose as needed for constipation. Total time taken is greater than 35 minutes. Hospital course This is a 76-year-old male who was recently admitted with weakness and dehydration with poor oral intake secondary to throat cancer being closely monitored. Patient is having some constipation as well and appears to have some oral candidiasis. Patient will continue on oral nystatin swish and swallow needed for constipation. Patient reports to feeling improved and will be going home today. Currently no reports of chest pain, shortness of breath, or palpitations. Patient is afebrile. No reports of nausea or vomiting and patient is tolerating diet. Patient will be discharged home today. Guarded prognosis Physical exam: Gen: This is a 76-year-old male who is awake, alert and oriented 3, thin built, elderly appearing HEENT: Head is atraumatic, normocephalic. Pupils equal, round. Sclerae is anicteric. NECK: Supple. No JVD. No lymphadenopathy. No thyromegaly. LUNGS: Diminished breath sounds bilaterally with no wheezes or rhonchi. No intercostal retractions. HEART: S1, S2 are muffled ABDOMEN: Soft. Bowel sounds are present. No masses. No tenderness. EXTREMITIES: No pedal edema. No calf tenderness. NEUROLOGICAL: Patient is awake, alert and oriented x3. Cranial nerves 2 through 12 are grossly intact. Please refer to medication reconciliation sheet for a list of medications. The impression and plan of care has been dictated by Yamileth Vasquez, Nurse Practitioner as directed. Dr. Tito MD I have performed a history and examination and MDM of this patient, discussed the same with the dictator, and agree with the dictator's assessment and plan as written ,documented as a scribe. Based on total visit time, I have performed more than 50% of the visit. Patient Condition at Discharge: Fair Plan - Discharge Summary Discharge Rx Participant: No New Discharge Prescriptions: New Nystatin 100,000 Unit/ml Susp [Mycostatin Oral Susp] 5 ml PO QID 10 Days ml Lactulose [Cephulac] 20 gm PO BID PRN #360 ml PRN Reason: Constipation Magnesium Hydroxide [Milk of Magnesia Concentrate] 2,400 mg PO ONCE PRN ml PRN Reason: Constipation Continue Levothyroxine Sodium [Synthroid] 150 mcg PO DAILY Insulin Detemir [Levemir Flextouch Pen] 10 - 12 units SQ HS Ferrous Sulfate [Iron (65 MG Elemental)] 325 mg PO HS Pantoprazole [Protonix] 40 mg PO HS amLODIPine [Norvasc] 5 mg PO HS Pioglitazone [Actos] 30 mg PO HS Sertraline [Zoloft] 100 mg PO HS Discharge Medication List Levothyroxine Sodium [Synthroid] 150 mcg PO DAILY 07/04/20 [History] amLODIPine [Norvasc] 5 mg PO HS 02/03/21 [History] Ferrous Sulfate [Iron (65 MG Elemental)] 325 mg PO HS 07/28/22 [History] Insulin Detemir [Levemir Flextouch Pen] 10 - 12 units SQ HS 07/28/22 [History] Pantoprazole [Protonix] 40 mg PO HS 07/28/22 [History] Pioglitazone [Actos] 30 mg PO HS 07/28/22 [History] Sertraline [Zoloft] 100 mg PO HS 07/28/22 [History] Lactulose [Cephulac] 20 gm PO BID PRN #360 ml 08/14/22 [Rx] Magnesium Hydroxide [Milk of Magnesia Concentrate] 2,400 mg PO ONCE PRN ml 08/14/22 [Rx] Nystatin 100,000 Unit/ml Susp [Mycostatin Oral Susp] 5 ml PO QID 10 Days ml 08/14/22 [Rx] Follow up Appointment(s)/Referral(s): [facility],Home Care [NON-STAFF] - As Needed Gene Noble III, MD [Primary Care Provider] - 1-2 days (The office is not opened today please call back to make follow up appointment.) Discharge Disposition: HOME WITH HOME HEALTH SERVICES
== END 2022-08-14 12:51 | disposition home health service (06) | DRG 641 ==
LOC: EC 09:14 → 5NMEDONC 13:14
PROVIDERS: ADMIT Hospitalist; ATTEND Hospitalist
DX: E86.0 Dehydration (principal); B37.0 Candidal stomatitis; C14.0 Malignant neoplasm of pharynx, unspecified; R62.7 Adult failure to thrive; J44.9 Chronic obstructive pulmonary disease, unspecified; E11.9 Type 2 diabetes mellitus without complications; Z79.4 Long term (current) use of insulin; K59.00 Constipation, unspecified; E83.42 Hypomagnesemia; I10 Essential (primary) hypertension; E07.9 Disorder of thyroid, unspecified; F41.9 Anxiety disorder, unspecified; K21.9 Gastro-esophageal reflux disease without esophagitis; M19.90 Unspecified osteoarthritis, unspecified site; Z79.890 Hormone replacement therapy; Z79.84 Long term (current) use of oral hypoglycemic drugs; Z79.899 Other long term (current) drug therapy; Z88.6 Allergy status to analgesic agent; Z87.891 Personal history of nicotine dependence; Z92.3 Personal history of irradiation; Z85.828 Personal history of other malignant neoplasm of skin; Z85.118 Personal history of other malignant neoplasm of bronchus and lung
CPT/HCPCS: 36415; 74018; 80048; 80053; 83605; 83735; 84132; 84484; 85025; 93005; 96361; 96365; 99285

== ENCOUNTER 2022-10-20 18:26 | Inpatient (IN) | payer MEDICARE, BC ==
[2022-10-20] MEDS ORDERED: SODIUM CHLORIDE 0.9% 1,000 ML IV STA (18:46)
--- NOTE | 2022-10-20 18:49 | ED ---
General Adult HPI - General Chief complaint: Weakness Stated complaint: WEAKNESS Time Seen by Provider: 10/20/22 18:29 Source: patient, EMS, RN notes reviewed Mode of arrival: EMS Limitations: no limitations - History of Present Illness Initial comments: Patient is a pleasant 76-year-old male presenting to the emergency department with reported concerns for general weakness. Patient admits to feeling fatigued. Patient reportedly had 2 falls without injury yesterday. Patient is currently on antibiotics for left lower lobe pneumonia. Patient denies any chest pain or dyspnea. When specifically questioned patient admits to feeling dry. - Related Data Home Medications Medication Instructions Recorded Confirmed Levothyroxine Sodium [Synthroid] 150 mcg PO DAILY 07/04/20 09/12/22 amLODIPine [Norvasc] 5 mg PO HS 02/03/21 09/12/22 Ferrous Sulfate [Iron (65 MG 325 mg PO HS 07/28/22 09/12/22 Elemental)] Pantoprazole [Protonix] 40 mg PO HS 07/28/22 09/12/22 Pioglitazone [Actos] 30 mg PO HS 07/28/22 09/12/22 Sertraline [Zoloft] 100 mg PO HS 07/28/22 09/12/22 Previous Rx's Medication Instructions Recorded Magnesium Hydroxide [Milk of 2,400 mg PO ONCE PRN ml 08/14/22 Magnesia Concentrate] Nystatin 100,000 Unit/ml Susp 5 ml PO QID 10 Days ml 08/14/22 [Mycostatin Oral Susp] Acetaminophen Tab [Tylenol] 650 mg PO Q6HR PRN tab 09/16/22 Loperamide [Imodium] 2 mg PO QID PRN cap 09/16/22 Magnesium Oxide [Mag-Ox] 400 mg PO BID tab 09/16/22 Allergies Allergy/AdvReac Type Severity Reaction Status Date / Time NSAIDS (Non-Steroidal AdvReac GI BLEED Verified 10/20/22 18:48 Anti-Inflamma Review of Systems ROS Statement: Those systems with pertinent positive or pertinent negative responses have been documented in the HPI. ROS Other: All systems not noted in ROS Statement are negative. Constitutional: Denies: fever Eyes: Denies: eye pain ENT: Denies: ear pain Respiratory: Reports: as per HPI. Denies: cough, dyspnea Cardiovascular: Denies: chest pain Endocrine: Reports: as per HPI, fatigue Gastrointestinal: Denies: abdominal pain Genitourinary: Denies: dysuria Musculoskeletal: Denies: back pain Skin: Denies: rash Neurological: Reports: as per HPI. Denies: headache, confusion Past Medical History Past Medical History: Cancer, COPD, Diabetes Mellitus, Eye Disorder, GERD/Reflux, Hypertension, Osteoarthritis (OA), Pneumonia, Thyroid Disorder Additional Past Medical History / Comment(s): NIDDM type II (no longer on medication), throat CA w/ chemo and radiation (pt believes last treatment was january), skin cancer with removals, colitis, hypothyroid, R eye cataract, pain base L thumb. lung cancer (last chemo 2 weeks ago) History of Any Multi-Drug Resistant Organisms: None Reported Additional Past Surgical History / Comment(s): skin cancer removal x2, L eye cataract removed w/ lens implant, colonoscopy. Past Anesthesia/Blood Transfusion Reactions: No Reported Reaction Past Psychological History: Anxiety Additional Psychological History / Comment(s): Pt resides alone. Smoking Status: Former smoker Past Alcohol Use History: None Reported Additional Past Alcohol Use History / Comment(s): Pt started smoking in 1966 and quit 05/31/20. He was a 2 ppd smoker. Past Drug Use History: None Reported - Past Family History Father Family Medical History: Cancer Additional Family Medical History / Comment(s): Father of throat cancer. Mother Family Medical History: Cancer, Dementia, Thyroid Disorder Additional Family Medical History / Comment(s): Mother had breast cancer. General Exam Limitations: no limitations General appearance: alert, in no apparent distress Head exam: Present: atraumatic, normocephalic Eye exam: Present: normal appearance, PERRL, EOMI ENT exam: Present: mucous membranes dry Neck exam: Present: normal inspection. Absent: tenderness Respiratory exam: Present: normal lung sounds bilaterally Cardiovascular Exam: Present: regular rate, normal rhythm GI/Abdominal exam: Present: soft. Absent: tenderness Extremities exam: Present: normal inspection, full ROM. Absent: tenderness Neurological exam: Present: alert, CN II-XII intact. Absent: motor sensory deficit Expanded Neurological exam: Present: protecting the airway Speech: Present: fluid speech Motor strength exam: RUE: 5, LUE: 5, RLE: 5, LLE: 5 Eye Response: (4) open spontaneously Motor Response: (6) obeys commands Verbal Response: (5) oriented Psychiatric exam: Present: normal affect, normal mood Skin exam: Present: normal color Course Vital Signs 10/20/22 18:29 Temperature 98.5 F Pulse Rate 110 H Respiratory 24 Rate Blood Pressure 112/75 O2 Sat by Pulse 95 Oximetry EKG Findings - EKG Results: EKG: interpreted by ERMD, sinus rhythm, normal axis, normal QRS, normal ST/T Medical Decision Making - Medical Decision Making Was pt. sent in by a medical professional or institution (, TRI, DEICER REPAIRER, urgent care, hospital, or skilled nursing...) When possible be specific @ -Patient was sent from skilled nursing. Did you speak to anyone other than the patient for history (EMS, parent, family, police, friend...)? What history was obtained from this source @ -No Did you review nursing and triage notes (agree or disagree)? Why? @ -I reviewed and agree with nursing and triage notes Were old charts reviewed (outside hosp., previous admission, EMS record, old EKG, old radiological studies, urgent care reports/EKG's, skilled nursing records)? Report findings @ -Chart reviewed from skilled nursing Differential Diagnosis (chest pain, altered mental status, abdominal pain women, abdominal pain men, vaginal bleeding, weakness, fever, dyspnea, syncope, headache, dizziness, GI bleed, back pain, seizure, CVA, palpatations, mental health)? @ -Differential Dyspnea: Coronary syndrome, arrhythmia, tamponade, asthma, COPD, pulmonary embolism, pneumonia, pneumothorax, pulmonary effusion, anaphylaxis, diabetic ketoacidosis, flailed chest, pulmonary contusion, diaphragmatic rupture, anemia, neuromuscular, this is not meant to be an all-inclusive list. EKG interpreted by me (3pts min.). @ -As above X-rays interpreted by me (1pt min.). @ -This x-ray shows moderately sized right midlung infiltrate CT interpreted by me (1pt min.). @ -None done U/S interpreted by me (1pt. min.). @ -None done What testing was considered but not performed or refused? (CT, X-rays, U/S, labs)? Why? @ -None What meds were considered but not given or refused? Why? @ -None Did you discuss the management of the patient with other professionals (professionals i.e. , PA, DEICER REPAIRER, lab, RT, psych nurse, social science research assistant, tracer lathe set up operator, teacher, information systems security officer, pillowcase folder)? Give summary @ -Case was discussed with Dr. De La Rosa, who will admit cover Dr. Noble Was smoking cessation discussed for >3mins.? @ -No Was critical care preformed (if so, how long)? @ -31 minutes critical care time Were there social determinants of health that impacted care today? How? (Homelessness, low income, unemployed, alcoholism, drug addiction, transportat ion, low edu. Level, literacy, decrease access to med. care, longterm, rehab)? @ -No Was there de-escalation of care discussed even if they declined (Discuss DNR or withdrawal of care, Hospice)? DNR status @ -No What co-morbidities impacted this encounter? (DM, HTN, Smoking, COPD, CAD, Cancer, CVA, ARF, Chemo, Hep., AIDS, mental health diagnosis, sleep apnea, morbid obesity)? @ -None Was patient admitted / discharged? Hospital course, mention meds given and route, prescriptions, significant lab abnormalities, going to OR and other pertinent info. @ -Patient presents from skilled nursing with known diagnosis of pneumonia, currently on outpatient antibiotics for 4 days. Patient is having increased weakness and falling. Patient has abnormal vital signs. Patient does meet criteria for sepsis diagnosed at 2020. A culture and lactic acid and IV antibiotic's will be started Undiagnosed new problem with uncertain prognosis? @ -No Drug Therapy requiring intensive monitoring for toxicity (Heparin, Nitro, In sulin, Cardizem)? @ -No Were any procedures done? @ -No Diagnosis/symptom? @ -Pneumonia, sepsis Acute, or Chronic, or Acute on Chronic? @ -Acute, acute Uncomplicated (without systemic symptoms) or Complicated (systemic symptoms)? @ -Pneumonia is complicated with sepsis Side effects of treatment? @ -No Exacerbation, Progression, or Severe Exacerbation? @ -No Poses a threat to life or bodily function? How? (Chest pain, [place], [place], pneumonia, PE, COPD, DKA, ARF, appy, cholecystitis, CVA, Diverticulitis, Homicidal, Suicidal, threat to staff... and all critical care pts) @ -And potential threat to life and bodily function with sepsis consultation - Lab Data Result diagrams: 10/20/22 18:57 06/11/23 18:57 Lab Results 10/20/22 10/20/22 10/20/22 Range/Units 18:57 18:57 18:57 WBC 5.8 (3.8-10.6) k/uL RBC 3.41 L (4.30-5.90) m/uL Hgb 10.7 L (13.0-17.5) gm/dL Hct 33.5 L (39.0-53.0) % MCV 98.3 D (80.0-100.0) fL MCH 31.3 (25.0-35.0) pg MCHC 31.9 (31.0-37.0) g/dL RDW 14.8 (11.5-15.5) % Plt Count 181 (150-450) k/uL MPV 7.9 Neutrophils % 78 % Lymphocytes % 17 % Monocytes % 2 % Eosinophils % 2 % Basophils % 0 % Neutrophils # 4.5 (1.3-7.7) k/uL Lymphocytes # 1.0 (1.0-4.8) k/uL Monocytes # 0.1 (0-1.0) k/uL Eosinophils # 0.1 (0-0.7) k/uL Basophils # 0.0 (0-0.2) k/uL PT 11.3 (9.0-12.0) sec INR 1.1 (<1.2) APTT 27.7 (22.0-30.0) sec Sodium 130 L (137-145) mmol/L Potassium 4.2 (3.5-5.1) mmol/L Chloride 93 L (98-107) mmol/L Carbon Dioxide 28 (22-30) mmol/L Anion Gap 9 mmol/L BUN 18 (9-20) mg/dL Creatinine 0.75 (0.66-1.25) mg/dL Est GFR (CKD-EPI)AfAm >90 (>60 ml/min/1.73 sqM) Est GFR (CKD-EPI)NonAf 90 (>60 ml/min/1.73 sqM) Glucose 153 H (74-99) mg/dL Calcium 8.3 L (8.4-10.2) mg/dL Magnesium 1.5 L (1.6-2.3) mg/dL Total Bilirubin 0.5 (0.2-1.3) mg/dL AST 30 (17-59) U/L ALT 28 (4-49) U/L Alkaline Phosphatase 79 (38-126) U/L Total Protein 6.1 L (6.3-8.2) g/dL Albumin 2.8 L (3.5-5.0) g/dL Critical Care Time Critical Care Time: Yes Total Critical Care Time: 31 Disposition Clinical Impression: Pneumonia, Sepsis Disposition: ADMITTED IP TO THIS HOSP Is patient prescribed a controlled substance at d/c from ED?: No Referrals: Gene Noble III, MD [Primary Care Provider] - 1-2 days Time of Disposition: 20:28
[2022-10-20 19:34] LABS: ALT 28 U/L (4-49); AST 30 U/L (17-59); African American GFR (CKD) >90 (>60 ml/min/1.73 sqM); Albumin 2.8 g/dL (3.5-5.0); Alkaline Phosphatase 79 U/L (38-126); Anion Gap 9 mmol/L; Blood Urea Nitrogen 18 mg/dL (9-20); Calcium 8.3 mg/dL (8.4-10.2); Carbon Dioxide 28 mmol/L (22-30); Chloride 93 mmol/L (98-107); Glucose 153 mg/dL (74-99); Magnesium 1.5 mg/dL (1.6-2.3); Non-African American GFR(CKD) 90 (>60 ml/min/1.73 sqM); Potassium 4.2 mmol/L (3.5-5.1); Sodium 130 mmol/L (137-145); Total Bilirubin 0.5 mg/dL (0.2-1.3); Total Protein 6.1 g/dL (6.3-8.2)
[2022-10-20 19:35] LABS: Basophils % (A) 0 %; Eosinophils # (A) 0.1 k/uL (0-0.7); Eosinophils % (A) 2 %; HCT 33.5 % (39.0-53.0); HGB 10.7 gm/dL (13.0-17.5); Lymphocytes % (A) 17 %; MCH 31.3 pg (25.0-35.0); MCHC 31.9 g/dL (31.0-37.0); Mean Platelet Volume 7.9; Monocytes # (A) 0.1 k/uL (0-1.0); Monocytes % (A) 2 %; Neutrophils # (A) 4.5 k/uL (1.3-7.7); Neutrophils % (A) 78 %; Platelet Count 181 k/uL (150-450); RBC 3.41 m/uL (4.30-5.90); RDW 14.8 % (11.5-15.5); WBC 5.8 k/uL (3.8-10.6)
[2022-10-20 19:41] LABS: MCV 98.3 fL (80.0-100.0)
[2022-10-20 19:45] LABS: INR 1.1 (<1.2); Partial Thromboplastin Time 27.7 sec (22.0-30.0); Prothrombin Time 11.3 sec (9.0-12.0)
--- NOTE | 2022-10-20 19:53 | XR ---
EXAMINATION TYPE: XR chest 2V DATE OF EXAM: 10/20/2022 7:36 PM COMPARISON: Chest radiographs from 09/14/2022 TECHNIQUE: XR chest 2V Frontal and lateral views of the chest. CLINICAL INDICATION:Male, 76 years old with history of Weakness; FINDINGS: Lungs/Pleura: Right midlung opacity new from prior 09/14/2022. There is no evidence of pleural effusion , focal consolidation, or pneumothorax. Pulmonary vascularity: Unremarkable. Heart/mediastinum: Cardiomediastinal silhouette is unremarkable. Musculoskeletal: No acute osseous pathology. Right [id number] with tip in appropriate position. IMPRESSION: New from 09/14/2022 Right midlung opacity which is new correlate for pneumonia.
[2022-10-20] MEDS ORDERED: MAGNESIUM OXIDE 400 MG TAB PO STA (20:07)
[2022-10-20] MEDS ORDERED: PNEUMONIA PROTOCOL UTILIZED 1 EACH MISC PO PRN (20:29)
[2022-10-20] MEDS ORDERED: AZITHROMYCIN 500 MG in SODIUM CHLORIDE 0.9% 250 ML IVPB STA (20:29)
[2022-10-21] MEDS: LEVOTHYROXINE 88 MCG TAB PO SCH (06:47)
--- NOTE | 2022-10-21 07:53 | XR ---
EXAMINATION TYPE: XR chest 1V portable DATE OF EXAM: 10/21/2022 HISTORY: Shortness of breath. COMPARISON: 10/20/2022 TECHNIQUE: Single view of the chest is submitted. FINDINGS: Demonstrated are scattered senescent parenchymal change. Increasing right infrahilar infiltrate. Correlate for pneumonia. Follow-up until resolution advised. The heart is stable. Hilar and mediastinal structures are within normal limits. Degenerative changes are seen of the dorsal spine. IMPRESSION: 1. Chronic changes without evidence for acute pulmonary disease.
[2022-10-21] MEDS: AZITHROMYCIN 500 MG TAB PO SCH (09:01)
[2022-10-21] MEDS ORDERED: bisacodyL 10 MG SUPP RECTAL PRN (09:29)
[2022-10-21] MEDS ORDERED: ACETAMINOPHEN TAB 325 MG TAB PO PRN (09:29)
[2022-10-21] MEDS ORDERED: MAGNESIUM HYDROXIDE 2,400 MG/10 ML CUP PO PRN (09:29)
[2022-10-21] MEDS: SODIUM CHLORIDE 0.9% 1,000 ML IV SCH (09:45)
[2022-10-21 10:59] LABS: Basophils % (A) 0 %; Eosinophils # (A) 0.1 k/uL (0-0.7); Eosinophils % (A) 2 %; HCT 31.8 % (39.0-53.0); Lymphocytes # (A) 0.9 k/uL (1.0-4.8); Lymphocytes % (A) 16 %; MCH 30.7 pg (25.0-35.0); MCHC 31.5 g/dL (31.0-37.0); MCV 97.6 fL (80.0-100.0); Mean Platelet Volume 8.1; Monocytes # (A) 0.1 k/uL (0-1.0); Monocytes % (A) 2 %; Neutrophils # (A) 4.5 k/uL (1.3-7.7); Neutrophils % (A) 80 %; Platelet Count 165 k/uL (150-450); RBC 3.26 m/uL (4.30-5.90); RDW 14.9 % (11.5-15.5); WBC 5.6 k/uL (3.8-10.6)
[2022-10-21] MEDS: MAGNESIUM SULFATE-D5W PMX 1 GM in DEXTROSE/WATER 1 100ML.BAG IVPB SCH ×2 (11:17→13:45)
--- NOTE | 2022-10-21 11:18 | P.HPIM ---
History of Present Illness 76-year-old male came in with comments of generalized weakness patient had 2 falls patient is a longterm resident. Patient is found to have right middle lobe pneumonia patient was and he doesn't have any fever was never leukocytosis. Patient is already being treated with outpatient antibiotics for pneumonia. Patient is comparing of cough with minimal sputum production. Lactic acid is 1.1 symptoms sodium is 130. She does have COPD and smoked for 50 years doesn't wear any oxygen at home. REVIEW OF SYSTEMS: CONSTITUTIONAL: No fever, no malaise, no fatigue. HEENT: No recent visual problems or hearing problems. Denied any sore throat. CARDIOVASCULAR: No chest pain, orthopnea, PND, no palpitations, no syncope. PULMONARY:no hemoptysis. GASTROINTESTINAL: No diarrhea, no nausea, no vomiting, no abdominal pain. NEUROLOGICAL: No headaches, no weakness, no numbness. HEMATOLOGICAL: Denies any bleeding or petechiae. GENITOURINARY: Denies any burning micturition, frequency, or urgency. MUSCULOSKELETAL/RHEUMATOLOGICAL: Denies any joint pain, swelling, or any muscle pain. ENDOCRINE: Denies any polyuria or polydipsia. The rest of the 14-point review of systems is negative. PHYSICAL EXAMINATION: GENERAL: The patient is alert and oriented x3, not in any acute distress. Well developed, well nourished. HEENT: Pupils are round and equally reacting to light. EOMI. No scleral icterus. No conjunctival pallor. Normocephalic, atraumatic. No pharyngeal erythema. No thyromegaly. CARDIOVASCULAR: S1 and S2 present. No murmurs, rubs, or gallops. PULMONARY: Crackles in the right posterior lung whitt. ABDOMEN: Soft, nontender, nondistended, normoactive bowel sounds. No palpable organomegaly. MUSCULOSKELETAL: No joint swelling or deformity. EXTREMITIES: No cyanosis, clubbing, or pedal edema. NEUROLOGICAL: Gross neurological examination did not reveal any focal deficits. SKIN: No rashes. Assessment and plan -Right middle lobe pneumonia: Patient was started on Rocephin and azithromycin patient only on doxycycline as an outpatient. Sputum cultures and blood cultures will be obtained. Patient doesn't have any fever and leukocytosis as patient is partially being treated with antiemetics as an outpatient pro- calcitonin will be ordered but may not be elevated again for the same reason the patient is on antibiotics #Acute hypoxic and hypercapnic respiratory failure: Secondary to COPD exacerb ation patient will be started in his steroids and inhalational treatments -Type 2 diabetes mellitus: Sliding scale insulin - gastroesophageal reflux disease -Hypertension -hypothyroidism DVT prophylaxis: Lovenox Past Medical History Past Medical History: Cancer, COPD, Diabetes Mellitus, Eye Disorder, GERD/Reflux, Hypertension, Osteoarthritis (OA), Pneumonia, Thyroid Disorder Additional Past Medical History / Comment(s): NIDDM type II (no longer on medication), throat CA w/ chemo and radiation (pt believes last treatment was se ptember), skin cancer with removals, colitis, hypothyroid, R eye cataract, pain base L thumb. lung cancer (last chemo 2 weeks ago) History of Any Multi-Drug Resistant Organisms: None Reported Additional Past Surgical History / Comment(s): skin cancer removal x2, L eye cataract removed w/ lens implant, colonoscopy. Past Anesthesia/Blood Transfusion Reactions: No Reported Reaction Past Psychological History: Anxiety Additional Psychological History / Comment(s): Pt resides alone. Smoking Status: Former smoker Past Alcohol Use History: None Reported Additional Past Alcohol Use History / Comment(s): Pt started smoking in 1966 and quit 05/31/20. He was a 2 ppd smoker. Past Drug Use History: None Reported - Past Family History Father Family Medical History: Cancer Additional Family Medical History / Comment(s): Father of throat cancer. Mother Family Medical History: Cancer, Dementia, Thyroid Disorder Additional Family Medical History / Comment(s): Mother had breast cancer. Medications and Allergies Home Medications Medication Instructions Recorded Confirmed Type amLODIPine [Norvasc] 5 mg PO HS@209902/03/21 10/20/22 History Ferrous Sulfate [Iron (65 MG 325 mg PO HS@209907/28/22 10/20/22 History Elemental)] Pantoprazole [Protonix] 40 mg PO HS@209907/28/22 10/20/22 History Pioglitazone [Actos] 30 mg PO HS@209907/28/22 10/20/22 History Sertraline [Zoloft] 100 mg PO HS@209907/28/22 10/20/22 History Acetaminophen Tab [Tylenol] 650 mg PO Q6HR PRN tab 09/16/22 10/20/22 Rx Loperamide [Imodium] 2 mg PO QID PRN cap 09/16/22 10/20/22 Rx Doxycycline Hyclate 100 mg PO BID@0800,1700 10/20/22 10/20/22 History Ensure Enlive 120 - 237 ml PO TID@0800,1200,1700 10/20/22 10/20/22 History INSULIN ASPART (NovoLOG) [NovoLOG See Protocol SQ QID@07,11,1630,2130 10/20/22 10/20/22 History (formulary)] Ipratropium-Albuterol Nebulize 3 ml INHALATION RT-Q6H PRN 10/20/22 10/20/22 History [Duoneb 0.5 mg-3 mg/3 ml Soln] Ipratropium-Albuterol Nebulize 3 ml INHALATION RT-QID@00,06,12,18 10/20/22 10/20/22 History [Duoneb 0.5 mg-3 mg/3 ml Soln] Levothyroxine Sodium [Synthroid] 175 mcg PO DAILY@0700 10/20/22 10/20/22 History Magic Cup 1 can PO BID@1200,1700 10/20/22 10/20/22 History Magnesium Hydroxide [Milk of 7,200 mg PO DAILY PRN 10/20/22 10/20/22 History Magnesia Concentrate] Magnesium Oxide [Mag-Ox] 400 mg PO BID@0800,1700 10/20/22 10/20/22 History Na Phos,M-B/Na Phos,Di-Ba [Fleet 133 ml RECTAL DAILY PRN 10/20/22 10/20/22 History Adult] Ondansetron [Zofran] 4 mg PO Q6H PRN 10/20/22 10/20/22 History bisacodyL [Dulcolax] 10 mg RECTAL DAILY PRN 10/20/22 10/20/22 History guaiFENesin [guaiFENesin Oral 200 mg PO BID@0800,2100 10/20/22 10/20/22 History Solution] Allergies Allergy/AdvReac Type Severity Reaction Status Date / Time NSAIDS (Non-Steroidal AdvReac GI BLEED Verified 10/20/22 21:59 Anti-Inflamma Physical Exam Vitals: Vital Signs Temp Pulse Resp BP Pulse Ox 10/21/22 09:07 93 L 10/21/22 09:02 96 10/21/22 09:00 98.4 F 96 20 133/66 84 L 10/21/22 06:30 79 18 118/66 10/21/22 06:00 74 23 122/69 10/21/22 05:30 76 22 117/66 10/21/22 05:00 76 23 107/69 10/21/22 04:30 77 22 117/62 10/21/22 04:00 78 22 117/71 10/21/22 03:30 80 20 104/62 10/21/22 03:00 76 18 114/65 10/21/22 02:30 98.9 F 76 20 118/67 10/21/22 02:00 81 22 117/62 10/21/22 01:30 77 21 112/69 10/21/22 01:00 83 23 111/66 10/21/22 00:30 81 22 115/58 10/21/22 00:00 82 23 107/61 10/20/22 23:30 87 25 H 112/66 10/20/22 23:00 84 15 120/68 93 L 10/20/22 22:30 86 23 124/67 94 L 10/20/22 22:00 90 22 130/66 95 10/20/22 21:30 90 23 124/71 94 L 10/20/22 21:00 90 23 113/75 94 L 10/20/22 20:30 92 15 132/71 10/20/22 20:00 89 23 118/70 93 L 10/20/22 19:30 118/70 10/20/22 19:00 93 30 H 112/75 94 L 10/20/22 18:29 98.5 F 110 H 24 112/75 95 Intake and Output 10/20/22 10/21/22 10/21/22 22:59 06:59 14:59 Other: Weight 68.039 kg Results CBC & Chem 7: 10/21/22 09:45 10/20/22 18:57 Labs: Abnormal Lab Results - Last 24 Hours (Table) 10/20/22 10/20/22 10/21/22 Range/Units 18:57 18:57 09:45 RBC 3.41 L 3.26 L (4.30-5.90) m/uL Hgb 10.7 L 10.0 L (13.0-17.5) gm/dL Hct 33.5 L 31.8 L (39.0-53.0) % Lymphocytes # 0.9 L (1.0-4.8) k/uL Sodium 130 L (137-145) mmol/L Chloride 93 L (98-107) mmol/L Glucose 153 H (74-99) mg/dL Calcium 8.3 L (8.4-10.2) mg/dL Magnesium 1.5 L (1.6-2.3) mg/dL Total Protein 6.1 L (6.3-8.2) g/dL Albumin 2.8 L (3.5-5.0) g/dL
[2022-10-21] MEDS ORDERED: IPRATROPIUM-ALBUTEROL 3 ML NEB INHALATION PRN (11:20)
[2022-10-21] MEDS ORDERED: ENSURE ENLIVE PO SCH (12:00)
[2022-10-21] MEDS ORDERED: NON FORMULARY DRUG (Magic Cup 1 EACH Ml) PO SCH (12:00)
[2022-10-21 12:09] LABS: Glucose,Whole Blood 109 mg/dL (70-110)
[2022-10-21] MEDS: INSULIN ASPART (NovoLOG) 100 UNIT/ML VIAL SQ SCH ×3 (12:11→20:32)
[2022-10-21] MEDS: IPRATROPIUM-ALBUTEROL 3 ML NEB INHALATION SCH ×3 (13:20→20:34)
[2022-10-21 15:37] LABS: Glucose,Whole Blood 152 mg/dL (70-110)
[2022-10-21] MEDS: MAGNESIUM OXIDE 400 MG TAB PO SCH (16:01)
[2022-10-21] MEDS: SERTRALINE 100 MG TAB PO SCH (20:22)
[2022-10-21] MEDS: FAMOTIDINE 20 MG TAB PO SCH (20:22)
[2022-10-21] MEDS: PANTOPRAZOLE 40 MG TABLET PO SCH (20:22)
[2022-10-21] MEDS: PIOGLITAZONE 30 MG TAB PO SCH (20:22)
[2022-10-21] MEDS: guaiFENesin SYRUP 100MG/5ML 200 MG/10 ML CUP PO SCH (20:25)
[2022-10-21 20:30] LABS: Glucose,Whole Blood 147 mg/dL (70-110)
[2022-10-21] MEDS: BUDESONIDE 0.5 MG/2 ML NEBU INHALATION SCH (20:34)
[2022-10-21] MEDS ORDERED: amLODIPine 5 MG TAB PO SCH (21:00)
[2022-10-21 22:46] LABS: Glucose,Whole Blood 120 mg/dL (70-110)
[2022-10-22] MEDS: SODIUM CHLORIDE 0.9% 1,000 ML IV SCH ×2 (00:09→13:49)
[2022-10-22 05:56] LABS: Glucose,Whole Blood 112 mg/dL (70-110)
[2022-10-22] MEDS: INSULIN ASPART (NovoLOG) 100 UNIT/ML VIAL SQ SCH ×4 (06:27→23:57)
[2022-10-22 06:37] LABS: African American GFR (CKD) >90 (>60 ml/min/1.73 sqM); Anion Gap 6 mmol/L; Blood Urea Nitrogen 13 mg/dL (9-20); Calcium 7.9 mg/dL (8.4-10.2); Carbon Dioxide 26 mmol/L (22-30); Chloride 97 mmol/L (98-107); Glucose 96 mg/dL (74-99); Magnesium 1.6 mg/dL (1.6-2.3); Non-African American GFR(CKD) >90 (>60 ml/min/1.73 sqM); Sodium 129 mmol/L (137-145)
[2022-10-22 06:55] LABS: Potassium 4.3 mmol/L (3.5-5.1)
[2022-10-22] MEDS: LEVOTHYROXINE 88 MCG TAB PO SCH (06:56)
[2022-10-22] MEDS: IPRATROPIUM-ALBUTEROL 3 ML NEB INHALATION SCH ×4 (08:52→21:09)
[2022-10-22] MEDS: BUDESONIDE 0.5 MG/2 ML NEBU INHALATION SCH ×2 (08:52→21:08)
[2022-10-22] MEDS ORDERED: Magnesium Replacement Protocol 1 EACH MISC MISCELLANE PRN (09:20)
[2022-10-22] MEDS: MAGNESIUM OXIDE 400 MG TAB PO SCH ×2 (09:37→16:34)
[2022-10-22] MEDS: guaiFENesin SYRUP 100MG/5ML 200 MG/10 ML CUP PO SCH ×2 (09:37→22:57)
[2022-10-22] MEDS: ENOXAPARIN 40 MG/0.4 ML SYRINGE SQ SCH (09:37)
[2022-10-22] MEDS: FAMOTIDINE 20 MG TAB PO SCH ×2 (09:37→22:58)
[2022-10-22] MEDS: AZITHROMYCIN 500 MG TAB PO SCH (09:39)
[2022-10-22] MEDS: MAGNESIUM SULFATE-D5W PMX 1 GM in DEXTROSE/WATER 1 100ML.BAG IVPB SCH ×2 (10:35→11:55)
[2022-10-22 11:11] LABS: Glucose,Whole Blood 146 mg/dL (70-110)
[2022-10-22 16:28] LABS: Glucose,Whole Blood 152 mg/dL (70-110)
--- NOTE | 2022-10-22 18:39 | P.PN ---
Subjective Progress Note Date: 10/22/22 History of Present Illness 76-year-old male came in with comments of generalized weakness patient had 2 falls patient is a [facility]. Patient is found to have right middle lobe pneumonia patient was and he doesn't have any fever was never leukocytosis. Patient is already being treated with outpatient antibiotics for pneumonia. Patient is comparing of cough with minimal sputum production. Lactic acid is 1.1 symptoms sodium is 130. She does have COPD and smoked for 50 years doesn't wear any oxygen at home. 10/22/2022 Patient is seen and evaluated in follow-up today and maintained on ceftriaxone and pro-calcitonin follow-up is 0.15. Patient is afebrile denies any shortness of breath. Patient does have cough and reports does not feel well and currently maintained on 3 L via nasal cannula. Patient does have history of COPD although reports he does not chronically wear oxygen in the outpatient setting. Follow- up labs show a sodium of 129 and will discontinue fluids. Magnesium is also slightly low at 1.6 and will replace recommend repeat labs. Patient resides at [facility] with case management following an plan is to return to [facility]. No re ported chest pain or palpitations noted. Patient denies nausea or vomiting and reports to eating does not much of an appetite. Review of systems: Constitutional: reports of fatigue, no fever, or chills Cardiovascular: No reports of chest pain or palpitations Respiratory: No reports of worsening shortness of breath, reports continued cough GI: No reports of nausea, vomiting, or diarrhea, reports not much of an appetite : No reports of dysuria or retention Neurovascular: reports of generalized weakness All medications have been reviewed PHYSICAL EXAMINATION: GENERAL: The patient is alert and oriented x3, hard of hearing, not in any acute distress. Thin built, elderly appearing HEENT: Pupils are round and equally reacting to light. EOMI. No scleral icterus. No conjunctival pallor. Normocephalic, atraumatic. No pharyngeal erythema. No thyromegaly. CARDIOVASCULAR: S1 and S2 present. No murmurs, rubs, or gallops. PULMONARY: Diminished breath sounds bilaterally with some faint crackles noted at the bases ABDOMEN: Soft, nontender, nondistended, normoactive bowel sounds. No palpable organomegaly. MUSCULOSKELETAL: No joint swelling or deformity. EXTREMITIES: No cyanosis, clubbing, or pedal edema. NEUROLOGICAL: Gross neurological examination did not reveal any focal deficits. Diffusely weak SKIN: No rashes. Assessment: -Right middle lobe pneumonia, possibly community-acquired and failure of outpatient -Hypovolemic hyponatremia -Acute hypoxic and hypercapnic respiratory failure: Secondary to COPD exacerbation -Type 2 diabetes mellitus -gastroesophageal reflux disease -Hypertension -hypothyroidism -GI prophylaxis -DVT prophylaxis: Lovenox Plan: Recommend continue with antibiotics in the form of ceftriaxone in no sputum culture has been collected. Patient is not having fevers and pro-calcitonin is 0.15. Recommend continue antibiotics for now Sodium remains 129 with no improvement in IV fluids and will discontinue Patient continues to be short of breath maintained currently on 3 L via nasal cannula and will continue DuoNeb treatments Recommend monitor Accu-Cheks before meals and at bedtime and treat accordingly with sliding scale Recommend follow-up labs and will replace potassium and magnesium per protocol Patient is a resident at [facility] and will be returning there and will discuss further with case management about discharge planning in the next 24-48 hours The impression and plan of care has been dictated by Yamileth Vasquez, Nurse Practitioner as directed. Dr. Beni MD I have performed a history and examination and MDM of this patient, discussed the same with the dictator, and agree with the dictator's assessment and plan as written ,documented as a scribe. Based on total visit time, I have performed more than 50% of the visit. Objective - Vital Signs Vital signs: Vital Signs Temp 98.5 F 10/22/22 07:37 Pulse 76 10/22/22 09:07 Resp 19 10/22/22 07:37 BP 134/84 10/22/22 07:37 Pulse Ox 91 L 10/22/22 07:37 FiO2 Intake & Output 10/21/22 10/22/22 10/22/22 18:59 06:59 18:59 Intake Total 600 240 Balance 600 240 Weight 70 kg Intake: Intake, IV Titration 600 Amount Sodium Chloride 0.9% 1, 600 000 ml @ 75 mls/hr IV . [id number] JEANNA Rx#:[id number] Oral 240 Other: # Voids 2 - Labs CBC & Chem 7: 10/21/22 09:45 10/22/22 05:55 Labs: Abnormal Lab Results - Last 24 Hours (Table) 10/21/22 10/21/2223 Range/Units 09:45 10:48 15:35 RBC 3.26 L (4.30-5.90) m/uL Hgb 10.0 L (13.0-17.5) gm/dL Hct 31.8 L (39.0-53.0) % Lymphocytes # 0.9 L (1.0-4.8) k/uL Sodium (137-145) mmol/L Chloride (98-107) mmol/L Creatinine (0.66-1.25) mg/dL POC Glucose (mg/dL) 152 H (70-110) mg/dL Calcium (8.4-10.2) mg/dL Procalcitonin 0.15 H (0.02-0.09) ng/mL 10/21/22 10/21/22 10/22/22 Range/Units 20:29 22:44 05:54 RBC (4.30-5.90) m/uL Hgb (13.0-17.5) gm/dL Hct (39.0-53.0) % Lymphocytes # (1.0-4.8) k/uL Sodium (137-145) mmol/L Chloride (98-107) mmol/L Creatinine (0.66-1.25) mg/dL POC Glucose (mg/dL) 147 H 120 H 112 H (70-110) mg/dL Calcium (8.4-10.2) mg/dL Procalcitonin (0.02-0.09) ng/mL 10/22/22 Range/Units 05:55 RBC (4.30-5.90) m/uL Hgb (13.0-17.5) gm/dL Hct (39.0-53.0) % Lymphocytes # (1.0-4.8) k/uL Sodium 129 L (137-145) mmol/L Chloride 97 L (98-107) mmol/L Creatinine 0.63 L (0.66-1.25) mg/dL POC Glucose (mg/dL) (70-110) mg/dL Calcium 7.9 L (8.4-10.2) mg/dL Procalcitonin (0.02-0.09) ng/mL
[2022-10-22 20:53] LABS: Glucose,Whole Blood 114 mg/dL (70-110)
[2022-10-22] MEDS: PANTOPRAZOLE 40 MG TABLET PO SCH (22:57)
[2022-10-22] MEDS: SERTRALINE 100 MG TAB PO SCH (22:57)
[2022-10-22] MEDS: PIOGLITAZONE 30 MG TAB PO SCH (23:20)
[2022-10-23] MEDS: PIOGLITAZONE 30 MG TAB PO SCH (05:23)
[2022-10-23 06:10] LABS: Glucose,Whole Blood 108 mg/dL (70-110)
[2022-10-23] MEDS: INSULIN ASPART (NovoLOG) 100 UNIT/ML VIAL SQ SCH ×3 (07:33→17:06)
[2022-10-23 08:02] LABS: African American GFR (CKD) >90 (>60 ml/min/1.73 sqM); Anion Gap 8 mmol/L; Blood Urea Nitrogen 13 mg/dL (9-20); Calcium 8.2 mg/dL (8.4-10.2); Carbon Dioxide 27 mmol/L (22-30); Chloride 95 mmol/L (98-107); Glucose 96 mg/dL (74-99); Magnesium 1.7 mg/dL (1.6-2.3); Non-African American GFR(CKD) >90 (>60 ml/min/1.73 sqM); Potassium 3.6 mmol/L (3.5-5.1); Sodium 130 mmol/L (137-145)
[2022-10-23] MEDS: FAMOTIDINE 20 MG TAB PO SCH (08:08)
[2022-10-23] MEDS: ENOXAPARIN 40 MG/0.4 ML SYRINGE SQ SCH (08:08)
[2022-10-23] MEDS: guaiFENesin SYRUP 100MG/5ML 200 MG/10 ML CUP PO SCH (08:08)
[2022-10-23] MEDS: LEVOTHYROXINE 88 MCG TAB PO SCH (08:08)
[2022-10-23] MEDS: MAGNESIUM OXIDE 400 MG TAB PO SCH ×2 (08:08→17:06)
[2022-10-23] MEDS: BUDESONIDE 0.5 MG/2 ML NEBU INHALATION SCH (08:26)
[2022-10-23] MEDS: IPRATROPIUM-ALBUTEROL 3 ML NEB INHALATION SCH ×3 (08:26→16:09)
[2022-10-23 11:23] LABS: Glucose,Whole Blood 112 mg/dL (70-110)
[2022-10-23 14:30] VITALS: BP 124/73; RESP 21; TEMP 97.5
--- NOTE | 2022-10-23 15:09 | P.DS ---
Providers Date of admission: 10/20/22 20:29 Expected date of discharge: 10/23/22 Attending physician: Angel Huff MD Primary care physician: Gene Noble [facility] Course: Final diagnosis -Right middle lobe pneumonia, possibly community-acquired and failure of outpatient -Hypovolemic hyponatremia, improving -Acute hypoxic and hypercapnic respiratory failure: Secondary to COPD exacerbation -Type 2 diabetes mellitus -gastroesophageal reflux disease -Hypertension -hypothyroidism -GI prophylaxis -DVT prophylaxis: Lovenox Discharge disposition Patient is being discharged in a stable condition with guarded prognosis to [facility]. Patient will follow-up with Dr. Jerez in the outpatient setting upon discharge. Patient is to continue with oral Ceftin 500 mg twice daily for the next 1 week. Total time taken is greater than 35 minutes. Hospital course This is a 76-year-old male who was recently admitted with increased shortness of breath with concerns of failure of outpatient pneumonia on doxycycline. Patient being closely monitored for COPD exacerbation along with pneumonia showing some clinical improvements and maintained on ceftriaxone. Patient will continue oral Ceftin twice daily for the next 1 week. Patient also to continue DuoNeb treatments 4 times a day and as needed and continue with 3 L of supplemental oxygen. Sodium was slightly low although improved at 130 today and encouraged oral intake. Patient does not eat very much and would recommend continuing with ensure supplements between meals. Recommend monitor Accu-Cheks before meals and at bedtime and use sliding scale Currently no reports of chest pain, shortness of breath, or palpitations. Patient is afebrile. No reports of nausea or vomiting and patient is tolerating diet. Patient will be going to [facility] today. Physical exam: Gen: This is a 76-year-old male who is awake, alert and oriented 2-3, extremely hard of hearing, thin built, elderly appearing HEENT: Head is atraumatic, normocephalic. Pupils equal, round. Sclerae is anicteric. NECK: Supple. No JVD. No lymphadenopathy. No thyromegaly. LUNGS: Diminished breath sounds bilaterally with some scattered rhonchi noted. No intercostal retractions. HEART: Regular rate and rhythm. No murmur. ABDOMEN: Soft. Bowel sounds are present. No masses. No tenderness. EXTREMITIES: No pedal edema. No calf tenderness. NEUROLOGICAL: Patient is awake, alert and oriented x2-3. Cranial nerves 2 through 12 are grossly intact. Diffusely weak Please refer to medication reconciliation sheet for a list of medications. The impression and plan of care has been dictated by Yamileth Vasquez, Nurse Practitioner as directed. Dr. Beni MD I have performed a history and examination and MDM of this patient, discussed the same with the dictator, and agree with the dictator's assessment and plan as written ,documented as a scribe. Based on total visit time, I have performed more than 50% of the visit. Patient Condition at Discharge: Stable Plan - Discharge Summary Discharge Rx Participant: No New Discharge Prescriptions: New cefUROXime axetiL [Ceftin] 500 mg PO BID 7 Days #14 tab Enoxaparin [Lovenox] 40 mg SQ DAILY each Continue Ferrous Sulfate [Iron (65 MG Elemental)] 325 mg PO HS@2100 Pantoprazole [Protonix] 40 mg PO HS@2100 Loperamide [Imodium] 2 mg PO QID PRN cap PRN Reason: Diarrhea Acetaminophen Tab [Tylenol] 650 mg PO Q6HR PRN tab PRN Reason: Mild Pain Or Fever > 100.5 Magnesium Hydroxide [Milk of Magnesia Concentrate] 7,200 mg PO DAILY PRN PRN Reason: Constipation Na Phos,M-B/Na Phos,Di-Ba [Fleet Adult] 133 ml RECTAL DAILY PRN PRN Reason: Constipation Ipratropium-Albuterol Nebulize [Duoneb 0.5 mg-3 mg/3 ml Soln] 3 ml INHALATION RT-Q6H PRN PRN Reason: COUGH/SHORTNESS OF BREATH bisacodyL [Dulcolax] 10 mg RECTAL DAILY PRN PRN Reason: Constipation Ipratropium-Albuterol Nebulize [Duoneb 0.5 mg-3 mg/3 ml Soln] 3 ml INHALATION RT-QID@00,06,12,18 Magnesium Oxide [Mag-Ox] 400 mg PO BID@0800,1700 Magic Cup 1 can PO BID@1200,1700 guaiFENesin [guaiFENesin Oral Solution] 200 mg PO BID@0800,2100 Pioglitazone [Actos] 30 mg PO HS@2100 Sertraline [Zoloft] 100 mg PO HS@2100 Ondansetron [Zofran] 4 mg PO Q6H PRN PRN Reason: Nausea Ensure Enlive 120 - 237 ml PO TID@0800,1200,1700 INSULIN ASPART (NovoLOG) [NovoLOG (formulary)] See Protocol SQ QID@07,11,163,2129 Levothyroxine Sodium [Synthroid] 175 mcg PO DAILY@0700 Discontinued Doxycycline Hyclate 100 mg PO BID@0800,1700 amLODIPine [Norvasc] 5 mg PO HS@2100 Discharge Medication List Ferrous Sulfate [Iron (65 MG Elemental)] 325 mg PO HS@209907/28/22 [History] Pantoprazole [Protonix] 40 mg PO HS@209907/28/22 [History] Pioglitazone [Actos] 30 mg PO HS@209907/28/22 [History] Sertraline [Zoloft] 100 mg PO HS@209907/28/22 [History] Acetaminophen Tab [Tylenol] 650 mg PO Q6HR PRN tab 09/16/22 [Rx] Loperamide [Imodium] 2 mg PO QID PRN cap 09/16/22 [Rx] Ensure Enlive 120 - 237 ml PO TID@0800,1200,1700 10/20/22 [History] INSULIN ASPART (NovoLOG) [NovoLOG (formulary)] See Protocol SQ QID@07,,163,212910/20/22 [History] Ipratropium-Albuterol Nebulize [Duoneb 0.5 mg-3 mg/3 ml Soln] 3 ml INHALATION RT-Q6H PRN 10/20/22 [History] Ipratropium-Albuterol Nebulize [Duoneb 0.5 mg-3 mg/3 ml Soln] 3 ml INHALATION RT-QID@00,06,12,18 10/20/22 [History] Levothyroxine Sodium [Synthroid] 175 mcg PO DAILY@0700 10/20/22 [History] Magic Cup 1 can PO BID@1200,1700 10/20/22 [History] Magnesium Hydroxide [Milk of Magnesia Concentrate] 7,200 mg PO DAILY PRN 10/20/22 [History] Magnesium Oxide [Mag-Ox] 400 mg PO BID@0800,1700 10/20/22 [History] Na Phos,M-B/Na Phos,Di-Ba [Fleet Adult] 133 ml RECTAL DAILY PRN 10/20/22 [History] Ondansetron [Zofran] 4 mg PO Q6H PRN 10/20/22 [History] bisacodyL [Dulcolax] 10 mg RECTAL DAILY PRN 10/20/22 [History] guaiFENesin [guaiFENesin Oral Solution] 200 mg PO BID@0800,2100 10/20/22 [History] Enoxaparin [Lovenox] 40 mg SQ DAILY each 10/23/22 [Rx] cefUROXime axetiL [Ceftin] 500 mg PO BID 7 Days #14 tab 10/23/22 [Rx] Follow up Appointment(s)/Referral(s): Gene Noble III, MD [Primary Care Provider] - 1-2 days Denis De La Rosa [NON-STAFF] - As Needed Activity/Diet/Wound Care/Special Instructions: Patient is going to [facility] Activity as tolerated Continue with antibiotics in the form of Ceftin 500 mg twice daily for the next 1 week Continue DuoNeb treatments 4 times daily and as needed Continue diabetic diet monitor Accu-Cheks before meals and at bedtime Follow-up primary care provider on discharge Discharge Disposition: TRANSFER TO SNF/ECF
[2022-10-23 16:18] VITALS: PULSE 75
[2022-10-23 16:39] LABS: Glucose,Whole Blood 207 mg/dL (70-110)
== END 2022-10-23 17:28 | DRG 190 ==
LOC: EC 18:26 → 4SSUR 20:29
PROVIDERS: ADMIT Internal Medicine; ATTEND Internal Medicine
DX: J44.0 Chronic obstructive pulmonary disease with (acute) lower respiratory infection (principal); J18.9 Pneumonia, unspecified organism; J96.01 Acute respiratory failure with hypoxia; J96.02 Acute respiratory failure with hypercapnia; E87.1 Hypo-osmolality and hyponatremia; R53.1 Weakness; K21.9 Gastro-esophageal reflux disease without esophagitis; E03.9 Hypothyroidism, unspecified; E86.1 Hypovolemia; E11.9 Type 2 diabetes mellitus without complications; Z79.890 Hormone replacement therapy; F41.9 Anxiety disorder, unspecified; I10 Essential (primary) hypertension; J44.1 Chronic obstructive pulmonary disease with (acute) exacerbation; Z79.84 Long term (current) use of oral hypoglycemic drugs; Z85.828 Personal history of other malignant neoplasm of skin; Z98.42 Cataract extraction status, left eye; Z98.41 Cataract extraction status, right eye; Z96.1 Presence of intraocular lens; Z87.01 Personal history of pneumonia (recurrent); Z87.891 Personal history of nicotine dependence; Z88.6 Allergy status to analgesic agent
CPT/HCPCS: 36415; 71045; 71046; 80048; 80053; 83605; 83735; 84145; 85025; 85610; 85730; 87040; 93005; 94640; 94760; 96361; 96365; 96366; 96367; 99291